=== PATIENT | female | born 1950 | race Caucasian/White ===

== ENCOUNTER 2020-01-12 18:35 | Inpatient (IN) | payer MEDICARE, MEDICAID ==
[~2020-01-12] VITALS: Ht 153 cm; Wt 89.9 kg
[~2020-01-12 18:35] MED LIST: ALBU8.5H2 IH; AMLO5TAB2 PO; AMX500CRX; CHLO25TA2 PO; CPR500T PO; HCT25T PO; HYDR-3730 PO; METO-272 PO; PRD5T; TIOT18CA IH
[2020-01-12] MEDS ORDERED: RT-ALBUTEROL/IPRATROPIUM 3 ML (DUONEB) VIAL INH ONE (19:00)
[2020-01-12 19:01] LABS: BASOPHILS % (AUTO) 0 % (0-10); EOSINOPHILS # (AUTO) 0.1 10^3/uL (0.0-0.3); EOSINOPHILS % (AUTO) 1 % (0-10); HEMATOCRIT 43 % (35-52); HEMOGLOBIN 12.7 G/DL (11.5-16.0); LYMPHOCYTES # (AUTO) 1.8 X 10^3 (1.0-4.0); LYMPHOCYTES % (AUTO) 23 % (12-44); MEAN CORPUSCULAR HEMOGLOBIN 28 PG (25-34); MEAN CORPUSCULAR HGB CONC 30 G/DL (32-36); MEAN CORPUSCULAR VOLUME 95 FL (80-99); MEAN PLATELET VOLUME 10.6 FL (7.4-10.4); MONOCYTES # (AUTO) 0.7 X 10^3 (0.0-1.0); MONOCYTES % (AUTO) 9 % (0-12); NEUTROPHILS # (AUTO) 5.1 X 10^3 (1.8-7.8); NEUTROPHILS % (AUTO) 67 % (42-75); PLATELET COUNT 235 10^3/uL (130-400); RED CELL DISTRIBUTION WIDTH 16.7 % (10.0-14.5); WHITE BLOOD COUNT 7.7 10^3/uL (4.3-11.0)
--- NOTE | 2020-01-12 19:04 | ED General ---
General Chief Complaint: Respiratory Problems Stated Complaint: SOB Source of Information: Patient, EMS Exam Limitations: No Limitations History of Present Illness Date Seen by Provider: January 12, 2020 Time Seen by Provider: 18:37 Initial Comments Here with report of shortness of breath that has been worsening over the last week or 2. [facility] [place] and no significant changes out of that visit. She did take her Lasix this morning but has not had any significant urinary output today. Notes that she's had increased swelling of her legs as a part of this. The clinic noted that she had O2 sat of 77%. EMS brought her here and found the same. They did initiate increased O2 via nasal cannula as well as DuoNeb treatment. Patient states that did help. Has history of albuterol use but not diagnosed with COPD. She does have CHF history. Does have cardiac history in which she had pericardial tamponade several years ago and pericardial window. Denies fever or chills. Denies nausea, vomiting or diarrhea. Does report increased shortness of breath and orthopnea. Denies chest pain otherwise. Timing/Duration: 1 Week, Getting Worse Severity: Moderate Associated Systoms: No Chest Pain, No Cough, No Fever/Chills, No Nausea/Vomiting; Shortness of Air, Weakness Allergies and Home Medications Allergies Coded Allergies: No Known Drug Allergies (Verified , 08/02/08) Home Medications Chlorthalidone 25 Mg Tablet, 25 MG PO DAILY, (Reported) Hydrocodone/Acetaminophen 1 Each Tablet, 1-2 EACH PO Q6H Prescribed by: DELMY COLE on 06/17/14 0951 Metoprolol Succinate 50 Mg Tab.sr.24h, 1 EACH PO DAILY, (Reported) Patient Home Medication List Home Medication List Reviewed: Yes Review of Systems Review of Systems Constitutional: see HPI EENTM: no symptoms reported Respiratory: see HPI, dyspnea on exertion, orthopnea, short of breath Cardiovascular: No chest pain; edema; No palpitations Gastrointestinal: No abdominal pain, No nausea, No vomiting Genitourinary: no symptoms reported Musculoskeletal: no symptoms reported All Other Systems Reviewed Negative Unless Noted: Yes Past Ejmbkop-Sqchin-Eiwowo Hx Past Med/Social Hx: Reviewed Nursing Past Med/Soc Hx Patient Social History Alcohol Use: Denies Use Recreational Drug Use: No Smoking Status: Former Smoker Immunizations Up To Date Date of Pneumonia Vaccine: Jun 17, 2013 Date of Influenza Vaccine: Apr 24, 2012 Past Medical History Surgeries: Yes Cardiac (pericardial window) Respiratory: Yes Pneumonia Cardiac: Yes Chronic Edema/Swelling, Hypertension Neurological: No Reproductive Disorders: No Female Reproductive Disorders: Denies Gastrointestinal: No Musculoskeletal: No Endocrine: No Adverse Reaction/Blood Tranf: No Family Medical History Reviewed Nursing Family Hx No Pertinent Family Hx Physical Exam-Suspected Sepsis Physical Exam Vital Signs Vital Signs - First Documented 01/12/20 01/12/20 18:40 18:45 Temp 37.1 Pulse 114 Resp 22 B/P (MAP) 145/87 (106) Pulse Ox 88 O2 Delivery Nasal Cannula O2 Flow Rate 6.00 Capillary Refill : Height, Weight, BMI Height: 5'0.00" Weight: 185lbs. oz. 83.128226oo; BMI Method: General Appearance: No Apparent Distress, WD/WN HEENT: PERRL/EOMI, Pharynx Normal Neck: Non Tender, Supple Respiratory: Decreased Breath Sounds, Respiratory Distress (moderate), Wheezing Cardiovascular: No Murmur, Tachycardia Gastrointestinal: Non Tender, Soft Back: Normal Inspection, No CVA Tenderness, No Vertebral Tenderness Extremity: Normal Range of Motion, Non Tender, No Calf Tenderness, Pedal Edema (2+ upto knees bilateral) Neurologic/Psychiatric: Alert, Oriented x3 Skin: normal color, warm/dry Focused Exam Lactate Level 01/12/20 18:52: Lactic Acid Level 1.40 Lactic Acid Level Laboratory Tests Test 01/12/20 18:52 Lactic Acid Level 1.40 MMOL/L (0.50-2.00) Progress/Results/Core Measures Suspected Sepsis SIRS Temperature: Pulse: Respiratory Rate: Laboratory Tests 01/12/20 18:52: White Blood Count 7.7 Blood Pressure / Mean: 01/12/20 18:52: Lactic Acid Level 1.40 Laboratory Tests 01/12/20 18:52: Creatinine 1.15, INR Comment 1.1, Platelet Count 235, Total Bilirubin 0.5 Results/Orders Lab Results Laboratory Tests Test 01/12/20 18:52 Range/Units White Blood Count 7.7 4.3-11.0 10^3/uL Red Blood Count 4.50 4.35-5.85 10^6/uL Hemoglobin 12.7 11.5-16.0 G/DL Hematocrit 43 35-52 % Mean Corpuscular Volume 95 80-99 FL Mean Corpuscular Hemoglobin 28 25-34 PG Mean Corpuscular Hemoglobin Concent 30 L 32-36 G/DL Red Cell Distribution Width 16.7 H 10.0-14.5 % Platelet Count 235 130-400 10^3/uL Mean Platelet Volume 10.6 H 7.4-10.4 FL Neutrophils (%) (Auto) 67 42-75 % Lymphocytes (%) (Auto) 23 12-44 % Monocytes (%) (Auto) 9 0-12 % Eosinophils (%) (Auto) 1 0-10 % Basophils (%) (Auto) 0 0-10 % Neutrophils # (Auto) 5.1 1.8-7.8 X 10^3 Lymphocytes # (Auto) 1.8 1.0-4.0 X 10^3 Monocytes # (Auto) 0.7 0.0-1.0 X 10^3 Eosinophils # (Auto) 0.1 0.0-0.3 10^3/uL Basophils # (Auto) 0.0 0.0-0.1 10^3/uL Prothrombin Time 14.1 12.2-14.7 SEC INR Comment 1.1 0.8-1.4 Activated Partial Thromboplast Time 26 24-35 SEC Sodium Level 142 135-145 MMOL/L Potassium Level 3.7 3.6-5.0 MMOL/L Chloride Level 93 L 98-107 MMOL/L Carbon Dioxide Level 39 H 21-32 MMOL/L Anion Gap 10 5-14 MMOL/L Blood Urea Nitrogen 24 H 7-18 MG/DL Creatinine 1.15 0.60-1.30 MG/DL Estimat Glomerular Filtration Rate 47 BUN/Creatinine Ratio 21 Glucose Level 191 H 70-105 MG/DL Lactic Acid Level 1.40 0.50-2.00 MMOL/L Calcium Level 9.2 8.5-10.1 MG/DL Corrected Calcium 9.2 8.5-10.1 MG/DL Magnesium Level 2.2 1.6-2.4 MG/DL Total Bilirubin 0.5 0.1-1.0 MG/DL Aspartate Amino Transf (AST/SGOT) 23 5-34 U/L Alanine Aminotransferase (ALT/SGPT) 25 0-55 U/L Alkaline Phosphatase 125 40-136 U/L Troponin I 0.142 H <0.028 NG/ML C-Reactive Protein High Sensitivity 2.65 H 0.00-0.50 MG/DL B-Type Natriuretic Peptide 554.7 H <100.0 PG/ML Total Protein 7.3 6.4-8.2 GM/DL Albumin 4.0 3.2-4.5 GM/DL My Orders Orders - SKINNY ZAMUDIO MD Cbc With Automated Diff (01/12/20 18:47) Comprehensive Metabolic Panel (01/12/20 18:47) Blood Culture (01/12/20 18:47) Sputum Culture (01/12/20 18:47) Urinalysis (01/12/20 18:47) Urine Culture (01/12/20 18:47) Protime With Inr (01/12/20 18:47) Partial Thromboplastin Time (01/12/20 18:47) Chest 1 View, Ap/Pa Only (01/12/20 18:47) Ed Iv/Invasive Line Start (01/12/20 18:47) Ekg Tracing (01/12/20 18:47) Troponin I (01/12/20 18:47) Vital Signs Adult Sepsis Patie Q15M (01/12/20 18:47) O2 (01/12/20 18:47) Remove Rings In Anticipation O (01/12/20 18:47) Lactic Acid Analyzer (01/12/20 18:47) BNP (01/12/20 18:47) Hs C Reactive Protein (01/12/20 18:47) Magnesium (01/12/20 18:47) Albuterol/Ipra Inhalation Soln (Duoneb I (01/12/20 19:00) Rt Request For Service (01/12/20 18:50) Svn Small Volume Nebulizer (01/12/20 18:50) Furosemide Injection (Lasix Injection) (01/12/20 19:48) Vital Signs/I&O 01/12/20 01/12/20 18:40 18:45 Temp 37.1 Pulse 114 Resp 22 B/P (MAP) 145/87 (106) Pulse Ox 88 88 O2 Delivery Nasal Cannula Nasal Cannula O2 Flow Rate 6.00 6.00 Capillary Refill : Progress Note : Progress Note Seen and evaluated. IV by EMS. O2 sat 77% on 4 L via nasal cannula. This was increased and ultimately placed on oxygen mask. This brought her O2 saturation up to mid 80s. BiPAP was initiated at 07/24 with FiO2 of 40% for pulse oximetry of 93%. Duo neb ordered. Sepsis protocol initiated as well as evaluation for heart failure. Monitor patient. 2009: Overall doing better. BiPAP continues although titrated up to 55% FiO2 to keep O2 sats greater than 92%. I have talked with patient's son, Joe Celestin at [phone] and felt him in on our current findings per patient's request. He agrees with plan. 2016: I did discuss the case with Dr. Servin and she accepts patient for admission. I have discussed the case with Dr. Luo and he accepts patient in consult. Orders written. Patient agrees to plan. ECG Initial ECG Impression Date: January 12, 2020 Initial ECG Impression Time: 19:01 Initial ECG Rate: 119 Comment Sinus tachycardia with left atrial enlargement. Normal axis. No evidence of ST elevation IA. This is similar to previous of 08/02/08. Interpreted by me. Diagnostic Imaging Diagonstic Imaging: Xray Plain Films/CT/US/NM/MRI: chest Comments [facility]. [place], [place] NAME: ISIDRO GALLEGO [facility] REC#: [id number] PT STATUS: REG ER : 1950 PHYSICIAN: SKINNY ZAMUDIO MD ADMIT DATE: 01/12/20/ER Signed Date of Exam:01/12/20 CHEST 1 VIEW, AP/PA ONLY INDICATION: Swelling. FINDINGS: There is cardiomegaly and vascular congestion having developed from the comparison of 09/24/2012. There may be some perihilar edema. No definite pleural fluid. IMPRESSION: Increased heart size, vascular caliber, and likely at least mild perihilar edema compatible with failure pattern. Dictated by: Dictated on workstation # [id number] Dict: 01/12/201920 Trans: 01/12/201944 [id number] Interpreted by: LASHONDA OJEDA Electronically signed by: LASHONDA OJEDA 01/12/201944 Reviewed: Reviewed by Me Departure Communication (Admissions) Time/Spoke to Admitting Phy: 20:16 Time/Spoke to Consulting Phy: 20:10 Impression Primary Impression: Acute heart failure Qualified Codes: I50.9 - Heart failure, unspecified Additional Impression: Elevated troponin Disposition: ADMITTED INPATIENT Condition: Stable Admissions Decision to Admit Reason: Admit from ER (General) Decision to Admit/Date: January 12, 2020 Time/Decision to Admit Time: 20:10 Departure-Patient Inst. Referrals: NO,LOCAL PHYSICIAN (Family) Primary Care Physician SKINNY ZAMUDIO MD January 12, 2020 19:04
[2020-01-12 19:10] LABS: POTASSIUM 3.7 MMOL/L (3.6-5.0)
[2020-01-12 19:11] LABS: CALCIUM 9.2 MG/DL (8.5-10.1)
[2020-01-12 19:12] LABS: INR 1.1 (0.8-1.4); PROTHROMBIN TIME PATIENT 14.1 SEC (12.2-14.7)
[2020-01-12 19:13] LABS: TOTAL PROTEIN 7.3 GM/DL (6.4-8.2)
[2020-01-12 19:14] LABS: BILIRUBIN,TOTAL 0.5 MG/DL (0.1-1.0)
[2020-01-12 19:16] LABS: CREATININE SERUM 1.15 MG/DL (0.60-1.30)
[2020-01-12 19:20] LABS: MAGNESIUM 2.2 MG/DL (1.6-2.4)
--- NOTE | 2020-01-12 19:24 | Diagnostic Imaging Report ---
INDICATION: Swelling. FINDINGS: There is cardiomegaly and vascular congestion having developed from the comparison of 09/24/2012. There may be some perihilar edema. No definite pleural fluid. IMPRESSION: Increased heart size, vascular caliber, and likely at least mild perihilar edema compatible with failure pattern. Dictated by: Dictated on workstation # [id number]
[2020-01-12] MEDS ORDERED: FUROSEMIDE 40 MG/4 ML INJ (LASIX) IV STA (19:48)
--- NOTE | 2020-01-12 20:35 | NUR ---
Pt assisted to bedside commode at this time, standby assist. Privacy provided, call light in reach.
[2020-01-12 20:48] LABS: BILIRUBIN,URINE NEGATIVE (NEGATIVE); CLARITY,URINE CLEAR; COLOR,URINE YELLOW; GLUCOSE, URINE (UA) NEGATIVE (NEGATIVE); KETONES,URINE NEGATIVE (NEGATIVE); LEUKOCYTE ESTERASE ,URINE NEGATIVE (NEGATIVE); NITRITE,URINE NEGATIVE (NEGATIVE); PROTEIN,URINE NEGATIVE (NEGATIVE)
[2020-01-12 20:55] LABS: BACTERIA,URINE FEW /HPF; HYALINE CASTS, URINE 0-2 /LPF; WBC,URINE 0-2 /HPF
--- NOTE | 2020-01-12 21:22 | NUR ---
Report called to BECCA Christy at this time.
--- NOTE | 2020-01-12 22:12 | NUR ---
ISIDRO GALLEGO admitted to room CU7-1, with an admitting diagnosis of ACUTE HEART FAILURE, on 01/12/20 from ED via STRETCHER, accompanied by HOSPITAL STAFF. ISIDRO GALLEGO introduced to surroundings, call light, bed controls, phone, TV, temperature control, lights, meal times, smoking policy, visitor policy, side rail policy, bathrooms and showers. Patient Rights given to patient in the handbook.ISIDRO GALLEGO verbalizes understanding that [facility] is not responsible for the loss or damage to any personal effects or valuables that are kept in the patients posession during their hospitalization. ISIDRO GALLEGO verbalizes understanding of Interdisciplinary Patient Education. Patient and/or family were informed about the Rapid Response Team and its purpose.
[2020-01-12 22:19] VITALS: BP 145/78
[2020-01-12 22:30] VITALS: BP 126/56
[2020-01-12] MEDS ORDERED: LORazepam INJ 2 MG/ML (ATIVAN) VIAL IV PRN (22:30)
--- OUTSIDE RECORDS SUMMARY | 2020-01-12 22:30 | XMS REPORT | Continuity of Care Document ---
Author Organization Unknown Address Unknown Phone Unavailable Allergies There is no data. Medications There is no data. Problems Date Dx Coded Attending Type Code Diagnosis Diagnosed By 04/20/2009 278.00 OBE SITY UNSPECIFIED 04/20/2009 401.9 ESSE NTIAL HYPERTENSION 04/20/2009 786.05 PREM RTNESS OF BREATH 04/20/2009 JOYA JUAN MD 278.00 OBESITY UNSPECIFIED 04/20/2009 JOYA JUAN MD 401.9 ESSENTIAL HYPERTENSION 04/20/2009 JOYA JUAN MD 786.05 SHORTNESS OF BREATH 04/20/2009 278.00 OBE SITY UNSPECIFIED 04/20/2009 401.9 ESSE NTIAL HYPERTENSION 04/20/2009 786.05 PREM RTNESS OF BREATH 04/20/2009 CHÁVEZ DO, BALTA K 278.00 OBESITY UNSPECIFIED 04/20/2009 CHÁVEZ DO, BALTA K 401.9 ESSENTIAL HYPERTENSION 04/20/2009 CHÁVEZ DO, BALTA K 786.05 SHORTNESS OF BREATH 04/20/2009 CHÁVEZ DO, BALTA K 278.00 OBESITY UNSPECIFIED 04/20/2009 CHÁVEZ DO, BALTA K 401.9 ESSENTIAL HYPERTENSION 04/20/2009 CHÁVEZ DO, BALTA K 786.05 SHORTNESS OF BREATH 04/20/2009 CHÁVEZ DO, BALTA K 278.00 OBESITY UNSPECIFIED 04/20/2009 CHÁVEZ DO, BALTA K 401.9 ESSENTIAL HYPERTENSION 04/20/2009 CHÁVEZ DO, BALTA K 786.05 SHORTNESS OF BREATH 05/19/2009 272.4 OTHE R AND UNSPECIFIED HYPERLIPIDEMIA 05/19/2009 JOYA JUAN MD 272.4 OTHER AND UNSPECIFIED HYPERLIPIDEMIA 05/19/2009 272.4 OTHE R AND UNSPECIFIED HYPERLIPIDEMIA 05/19/2009 CHÁVEZ DO, BALTA K 272.4 OTHER AND UNSPECIFIED HYPERLIPIDEMIA 05/19/2009 CHÁVEZ DO, BALTA K 272.4 OTHER AND UNSPECIFIED HYPERLIPIDEMIA 05/19/2009 CHÁVEZ DO, BALTA K 272.4 OTHER AND UNSPECIFIED HYPERLIPIDEMIA 07/04/2010 173.9 SKIN CANCER BASAL CELL CARCINOMA 07/04/2010 JOYA JUAN MD 173.9 SKIN CANCER BASAL CELL CARCINOMA 07/04/2010 173.9 SKIN CANCER BASAL CELL CARCINOMA 07/04/2010 BALTA CHÁVEZ DO 173.9 SKIN CANCER BASAL CELL CARCINOMA 07/04/2010 BALTA CHÁVEZ DO 173.9 SKIN CANCER BASAL CELL CARCINOMA 07/04/2010 BALTA CHÁVEZ DO K 173.9 SKIN CANCER BASAL CELL CARCINOMA 06/22/2011 466.0 Bron chitis, Acute 06/22/2011 JOYA JUAN MD 466.0 Bronchitis, Acute 06/22/2011 466.0 Bron chitis, Acute 06/22/2011 BALTA CHÁVEZ DO K 466.0 Bronchitis, Acute 06/22/2011 BALTA CHÁVEZ DO K 466.0 Bronchitis, Acute 06/22/2011 BALTA CHÁVEZ DO K 466.0 Bronchitis, Acute 11/02/2011 V70.0 ROUT INE GENERAL MEDICAL EXAMINATION AT A HEALTH CARE FACILITY 11/02/2011 JOYA JUAN MD V70.0 ROUTINE GENERAL MEDICAL EXAMINATION AT A HEALTH CARE ACILITY 11/02/2011 V70.0 ROUT INE GENERAL MEDICAL EXAMINATION AT A HEALTH CARE FACILITY 11/02/2011 BALTA CHÁVEZ DO V70.0 ROUTINE GENERAL MEDICAL EXAMINATION AT A HEALTH CARE FACILITY 11/02/2011 BALTA CHÁVEZ DO V70.0 ROUTINE GENERAL MEDICAL EXAMINATION AT A HEALTH CARE FACILITY 11/02/2011 BALTA CHÁVEZ DO K V70.0 ROUTINE GENERAL MEDICAL EXAMINATION AT A HEALTH CARE FACILITY 10/02/2012 492.8 EMPH YSEMA 10/02/2012 JOYA JUAN MD 492.8 EMPHYSEMA 10/02/2012 492.8 EMPH YSEMA 10/02/2012 BALTA CHÁVEZ DO 492.8 EMPHYSEMA 10/02/2012 BALTA CHÁVEZ DO K 492.8 EMPHYSEMA 10/02/2012 MATTEO CHÁVEZ DOA K 492.8 EMPHYSEMA 10/29/2012 JOYA JUAN MD 729.82 muscle cramps 10/29/2012 729.82 mus brenden cramps 10/29/2012 BALTA CHÁVEZ DO 729.82 muscle cramps 10/29/2012 BALTA CHÁVEZ DO 729.82 muscle cramps 10/29/2012 BALTA CHÁVEZ DO 729.82 muscle cramps 12/04/2012 461.9 SINU SITIS ACUTE 12/04/2012 709.9 skin lesion [Sx] 12/04/2012 CHÁVEZ DOMATTEOA K 461.9 SINUSITIS ACUTE 12/04/2012 CHÁVEZ DOMATTEOA K 709.9 skin lesion [Sx] 12/04/2012 CHÁVEZ DOMATTEOA K 461.9 SINUSITIS ACUTE 12/04/2012 CHÁVEZ DOMATTEOA K 709.9 skin lesion [Sx] 12/04/2012 CHÁVEZ DOMATTEOA K 461.9 SINUSITIS ACUTE 12/04/2012 CHÁVEZ DOMATTEOA K 709.9 skin lesion [Sx] 03/19/2013 CHÁVEZ DO BALTA K 372.30 CONJUNCTIVITIS - BOTH EYES 03/19/2013 CHÁVEZ DO BALTA K 372.30 CONJUNCTIVITIS - BOTH EYES 03/19/2013 CHÁVEZ DO BALTA K 372.30 CONJUNCTIVITIS - BOTH EYES 08/13/2013 SAIRA HUNTERMATTEOA K 486 PNEUMONIA ORGANISM UNSPECIFIED 08/13/2013 CHÁVEZ DO BALTA K 486 PNEUMONIA ORGANISM UNSPECIFIED 08/13/2013 CHÁVEZ DO BALTA K 486 PNEUMONIA ORGANISM UNSPECIFIED Procedures Code [place] [address] ROUT INE VENIPUNCTURE 10/29/2012 25231 BMP 10/30/2012 [id number] GF R CALC (RESULT ONLY) 10/30/2012 25428 OXIMETRY 08/13/2013 01785 OXIMETRY 08/17/2013 82876 ROUT INE VENIPUNCTURE 08/26/2013 21833 CBC 08/26/2013 [id number] GF R CALC (RESULT ONLY) 08/26/2013 43223 CMP 08/26/2013 34840 BNP 08/27/2013 50092 OXIMETRY 08/28/2013 Results There is no data. Encounters ACCT No. Visit Date/Time Discharge Status Pt. Type Provider Facility Loc./Unit Complaint [id number] 08/26/2013 11:41:00 08/26/2013 23:59: 59 CLS Outpatient BALTA CHÁVEZ DO [id number] 08/17/2013 11:55:00 08/17/2013 23:59: 59 CLS Outpatient BALTA CHÁVEZ DO [id number] 08/13/2013 09:48:00 08/13/2013 23:59: 59 CLS Outpatient BALTA CHÁVEZ DO [id number] 10/29/2012 16:03:00 10/29/2012 23:59: 59 CLS Outpatient JOYA JUAN MD [id number] 10/02/2012 14:36:00 10/02/2012 23:59: 59 CLS Outpatient [id number] 12/04/2012 09:40:00 Document Registration
--- OUTSIDE RECORDS SUMMARY | 2020-01-12 22:30 | XMS REPORT ---
Author Author [employer] electronic gl[employer] [facility] Address [address] [address] Care Team Providers Care Lav Crewman Name Role Phone Migration, Doctor Unavailable Unavailable Migration, Doctor Unavailable Unavailable zzHELLWIG, BETH Unavailable zzHELLWIG, BETH Unavailable zzHELLWIG, BETH Unavailable zzHELLWIG, BETH Unavailable Migration, Doctor Unavailable Unavailable Allergies The data below is from unstructured sources No Information No Information No Information No Information No Information Medications The data below is from unstructured sources Unknown Medications Unknown Medications No Known Medications No Known Medications Unknown Medications No Known Medications Problems No Information Procedures No Information Immunizations The data below is from unstructured sources No Known Immunizations No Known Immunizations No Known Immunizations No Known Immunizations No Known Immunizations Results The data below is from unstructured sources No Results No Results No Results No Results No Results Vital Signs No Information Interventions No Information Plan of Treatment No Information Goals No Information Social History No Information Functional Status No Information Mental Status No Information Encounters Encounter Normalized Encounter Encounter Diagnosis Care Provi matthew Organization Date Type 11-23-2019 Telephone encounter no information [facility] Owens (no [facility] [address] phone) (no phone) Medical Equipment No Information Payers No Information Additional Source Comments This clinical document has been generated using [employer] software that has been certified by the Office of the National Coordinator for Health Information Technology (ONC 15.99.04.3023.Diam.31.00.0.148554) and the National Committee for Printing Press Machine Operator (NCQA, as an eMeasure certified technology). FOR RECORDS PERTAINING TO PATIENTS WHO ARE OR HAVE BEEN ENROLLED IN A CHEMICAL D EPENDENCY/SUBSTANCE ABUSE PROGRAM, SOME INFORMATION MAY BE OMITTED. This clinica l summary was aggregated from multiple sources. Caution should be exercised in using it in the provision of clinical care. This summary normalizes information from multiple sources, and as a consequence, information in this document may ma terially change the coding, format and clinical context of patient data. In imtiaz tion, data may be omitted in some cases. CLINICAL DECISIONS SHOULD BE BASED ON T HE PRIMARY CLINICAL RECORDS. [employer]. provides no warranty or guara ntee of the accuracy or completeness of information in this document.The followi ng information is based on time limited clinical information UNRECOGNIZED CONTENT PROVIDED BELOW FOR UNRECOGNIZED SECTION REASON FOR VISIT [id number]
[2020-01-12 22:45] VITALS: BP 116/61
[2020-01-12 23:00] VITALS: BP 118/63
[2020-01-13] VITALS (22 sets, daily range): BP systolic 94–145; BP diastolic 54–96
[2020-01-13 02:42] LABS: ABG BASE EXCESS 16.8 MMOL/L (-2.5-2.5); ABG OXYGEN SATURATION 96 % (94-100); ABG PH 7.35 (7.37-7.43); ABG PO2 93 MMHG (79-93)
[2020-01-13 02:44] LABS: ABG PCO2 79 MMHG (35-45)
[2020-01-13 02:45] LABS: ALLENS TEST POSITIVE; INSPIRED O2 65; PATIENT TEMP 35.7; VENTILATOR NO
[2020-01-13 02:50] LABS: BASOPHILS % (AUTO) 0 % (0-10); EOSINOPHILS # (AUTO) 0.1 10^3/uL (0.0-0.3); EOSINOPHILS % (AUTO) 1 % (0-10); HEMATOCRIT 42 % (35-52); HEMOGLOBIN 12.3 G/DL (11.5-16.0); LYMPHOCYTES # (AUTO) 1.8 X 10^3 (1.0-4.0); LYMPHOCYTES % (AUTO) 26 % (12-44); MEAN CORPUSCULAR HEMOGLOBIN 28 PG (25-34); MEAN CORPUSCULAR HGB CONC 29 G/DL (32-36); MEAN CORPUSCULAR VOLUME 95 FL (80-99); MEAN PLATELET VOLUME 10.4 FL (7.4-10.4); MONOCYTES # (AUTO) 0.7 X 10^3 (0.0-1.0); MONOCYTES % (AUTO) 10 % (0-12); NEUTROPHILS # (AUTO) 4.3 X 10^3 (1.8-7.8); NEUTROPHILS % (AUTO) 63 % (42-75); PLATELET COUNT 217 10^3/uL (130-400); RED CELL DISTRIBUTION WIDTH 16.9 % (10.0-14.5); WHITE BLOOD COUNT 6.8 10^3/uL (4.3-11.0)
[2020-01-13 03:00] LABS: ALBUMIN 3.9 GM/DL (3.2-4.5); POTASSIUM 3.6 MMOL/L (3.6-5.0)
[2020-01-13 03:01] LABS: CALCIUM 8.9 MG/DL (8.5-10.1)
[2020-01-13 03:02] LABS: TOTAL PROTEIN 6.6 GM/DL (6.4-8.2)
[2020-01-13 03:04] LABS: BILIRUBIN,TOTAL 0.5 MG/DL (0.1-1.0)
[2020-01-13 03:06] LABS: CREATININE SERUM 0.94 MG/DL (0.60-1.30); PHOSPHORUS 4.3 MG/DL (2.3-4.7)
[2020-01-13 03:08] LABS: MAGNESIUM 1.9 MG/DL (1.6-2.4)
[2020-01-13] MEDS: inSUlin ASPART (NovoLOG) 1 UNIT/0.01 ML (CHARGE PER UNIT) SC SCH ×4 (03:16→20:27)
[2020-01-13] MEDS: MAGNESIUM 1 GM/100 ML IVPB 100 ML IV SCH (03:17)
[2020-01-13] MEDS: POTASSIUM CL 10MEQ/50ML IVPB 50 ML IV SCH (03:17)
[2020-01-13] MEDS: KCL 20 MEQ TAB (K-DUR) PO SCH (03:17)
--- NOTE | 2020-01-13 04:15 | NUR ---
E-ICU CALLED TO REPORT CRITICAL LAB VALUES FROM BLOOD GAS. NO NEW ORDERS AT THIS TIME.
--- NOTE | 2020-01-13 05:51 | Diagnostic Imaging Report ---
Indication: Congestive heart failure Portable chest 4:02 AM There is cardiomegaly. Pulmonary vascularity is normal. Lungs are clear. There are no effusions or pneumothoraces. IMPRESSION: Cardiomegaly without evidence of pulmonary venous hypertension Dictated by: Dictated on workstation # [id number]
[2020-01-13] MEDS ORDERED: KCL 20 MEQ TAB (K-DUR) PO ONE (06:00)
[2020-01-13] MEDS: FUROSEMIDE 40 MG/4 ML INJ (LASIX) IV SCH ×2 (06:57→18:43)
[2020-01-13] MEDS ORDERED: FURO40TA4 PO (09:27)
[2020-01-13] MEDS ORDERED: LISI-556 PO (09:27)
[2020-01-13] MEDS ORDERED: MTP25TSR PO (09:27)
--- NOTE | 2020-01-13 09:33 | History & Physical ---
HPI History of Present Illness: 69 yo female came to the ER due to increasing shortness of breath. She states she has had problems with breathing for years, has been on oxygen since around 2012 when she had some cardiac issue that she was treated for at another hospital, but she is not sure what. She just kept getting worse recently so she came in. She denies fever, cough, chest pain. Source: patient Exam Limitations: clinical condition (on bipap) Date seen by provider: January 13, 2020 Time Seen by Provider: 08:15 Attending Physician Parul Servin MD PCP Sung Newby APRN Consult Date of Admission January 12, 2020 at 19:56 Home Medications Home Medications Reviewed patient Home Medication Reconciliation performed by pharmacy medication reconciliations set up mold technician and/or nursing. Patients Allergies have been reviewed. Allergies Coded Allergies: No Known Drug Allergies (Verified , 08/02/08) HOX-Fmkeva-Wtncqa Hx Patient Social History Alcohol Use: Denies Use Recreational Drug Use: No Smoking Status: Former Smoker Recent Foreign Travel: No Contact w/other who traveled: No Recent Hopitalizations: No Recent Infectious Disease Expo: No Immunizations Up To Date Date of Pneumonia Vaccine: Jul 18, 2019 Date of Influenza Vaccine: Apr 24, 2012 Past Medical History PMHx: Unknown but suspected CHF SurgHx: Denies Family Medical History Family History: Patient reports no known family medical history. Review of Systems ([facility]) Constitutional: No fever EENTM: No nose congestion, No throat pain Respiratory: No cough, No short of breath Cardiovascular: edema (greater on left leg usually) Gastrointestinal: No abdominal pain, No constipation, No diarrhea, No nausea, No vomiting Genitourinary: No dysuria Musculoskeletal: joint pain ("aging") Skin: No rash Reviewed Test Results Reviewed Test Results Lab Laboratory Tests Test 01/12/20 18:52 01/12/20 20:42 01/13/20 02:30 01/13/20 02:36 Range/Units White Blood Count 7.7 6.8 4.3-11.0 10^3/uL Red Blood Count 4.50 4.45 4.35-5.85 10^6/uL Hemoglobin 12.7 12.3 11.5-16.0 G/DL Hematocrit 43 42 35-52 % Mean Corpuscular Volume 95 95 80-99 FL Mean Corpuscular Hemoglobin 28 28 25-34 PG Mean Corpuscular Hemoglobin Concent 30 L 29 L 32-36 G/DL Red Cell Distribution Width 16.7 H 16.9 H 10.0-14.5 % Platelet Count 235 217 130-400 10^3/uL Mean Platelet Volume 10.6 H 10.4 7.4-10.4 FL Neutrophils (%) (Auto) 67 63 42-75 % Lymphocytes (%) (Auto) 23 26 12-44 % Monocytes (%) (Auto) 9 10 0-12 % Eosinophils (%) (Auto) 1 1 0-10 % Basophils (%) (Auto) 0 0 0-10 % Neutrophils # (Auto) 5.1 4.3 1.8-7.8 X 10^3 Lymphocytes # (Auto) 1.8 1.8 1.0-4.0 X 10^3 Monocytes # (Auto) 0.7 0.7 0.0-1.0 X 10^3 Eosinophils # (Auto) 0.1 0.1 0.0-0.3 10^3/uL Basophils # (Auto) 0.0 0.0 0.0-0.1 10^3/uL Prothrombin Time 14.1 12.2-14.7 SEC INR Comment 1.1 0.8-1.4 Activated Partial Thromboplast Time 26 24-35 SEC Sodium Level 142 145 135-145 MMOL/L Potassium Level 3.7 3.6 3.6-5.0 MMOL/L Chloride Level 93 L 94 L 98-107 MMOL/L Carbon Dioxide Level 39 H 39 H 21-32 MMOL/L Anion Gap 10 12 5-14 MMOL/L Blood Urea Nitrogen 24 H 20 H 7-18 MG/DL Creatinine 1.15 0.94 0.60-1.30 MG/DL Estimat Glomerular Filtration Rate 47 59 BUN/Creatinine Ratio 21 21 Glucose Level 191 H 122 H 70-105 MG/DL Lactic Acid Level 1.40 0.50-2.00 MMOL/L Calcium Level 9.2 8.9 8.5-10.1 MG/DL Corrected Calcium 9.2 9.0 8.5-10.1 MG/DL Magnesium Level 2.2 1.9 1.6-2.4 MG/DL Total Bilirubin 0.5 0.5 0.1-1.0 MG/DL Aspartate Amino Transf (AST/SGOT) 23 21 5-34 U/L Alanine Aminotransferase (ALT/SGPT) 25 24 0-55 U/L Alkaline Phosphatase 125 108 40-136 U/L Troponin I 0.142 H 0.141 H <0.028 NG/ML C-Reactive Protein High Sensitivity 2.65 H 0.00-0.50 MG/DL B-Type Natriuretic Peptide 554.7 H <100.0 PG/ML Total Protein 7.3 6.6 6.4-8.2 GM/DL Albumin 4.0 3.9 3.2-4.5 GM/DL Urine Color YELLOW Urine Clarity CLEAR Urine pH 6.0 5-9 Urine Specific [place] 1.010 L 1.016-1.022 Urine Protein NEGATIVE NEGATIVE Urine Glucose (UA) NEGATIVE NEGATIVE Urine Ketones NEGATIVE NEGATIVE Urine Nitrite NEGATIVE NEGATIVE Urine Bilirubin NEGATIVE NEGATIVE Urine Urobilinogen 0.2 < = 1.0 MG/DL Urine Leukocyte Esterase NEGATIVE NEGATIVE Urine RBC (Auto) 2+ H NEGATIVE Urine RBC 2-5 H /HPF Urine WBC 0-2 /HPF Urine Squamous Epithelial Cells 2-5 /HPF Urine Crystals NONE /LPF Urine Bacteria FEW H /HPF Urine Casts PRESENT /LPF Urine Hyaline Casts 0-2 H /LPF Urine Mucus NEGATIVE /LPF Urine Culture Indicated CULTURE PENDING Blood Gas Puncture Site RIGHTR RADIAL Blood Gas Patient Temperature 35.7 Arterial Blood pH 7.35 L 7.37-7.43 Arterial Blood Partial Pressure CO2 79 *H 35-45 MMHG Arterial Blood Partial Pressure O2 93 79-93 MMHG Arterial Blood HCO3 43 *H 23-27 MMOL/L Arterial Blood Total CO2 46.0 H 21.0-31.0 MMOL/L Arterial Blood Oxygen Saturation 96 94-100 % Arterial Blood Base Excess 16.8 H -2.5-2.5 MMOL/L Darrius Test POSITIVE Blood Gas Ventilator Setting NO Blood Gas Inspired Oxygen 65 Phosphorus Level 4.3 2.3-4.7 MG/DL Radiology CXR 01/11: IMPRESSION: Increased heart size, vascular caliber, and likely at least mild perihilar edema compatible with failure pattern. Physical Exam-([facility]) Physical Exam Vital Signs VS - Last 72 Hours, by Label 01/12/20 01/12/20 01/12/20 01/12/20 18:40 18:45 18:51 21:55 Temp 37.1 37.1 Pulse 114 118 103 Resp 22 24 24 B/P (MAP) 145/87 (106) 119/65 (106) Pulse Ox 88 88 94 98 O2 Delivery Nasal Cannula Nasal Cannula FI02 O2 Flow Rate 6.00 6.00 55.00 6.00 01/12/20 01/12/20 01/12/20 01/12/20 22:12 22:12 22:17 22:19 Temp 36.0 Pulse 112 93 Resp 28 B/P (MAP) 145/78 (100) Pulse Ox 94 93 97 O2 Delivery NIV Bilevel NIV Bilevel O2 Flow Rate 55.00 55.00 FiO2 55 01/12/20 01/12/20 01/12/20 01/12/20 22:25 22:30 22:45 23:00 Pulse 105 106 100 98 Resp B/P (MAP) 126/56 (79) 116/61 (79) 118/63 (81) Pulse Ox 96 93 95 O2 Delivery NIV Bilevel NIV Bilevel NIV Bilevel O2 Flow Rate 55.00 55.00 55.00 01/12/20 01/13/20 01/13/20 01/13/20 23:04 00:00 00:00 00:00 Temp 35.8 Pulse 118 94 Resp 22 B/P (MAP) 116/54 (74) Pulse Ox 95 92 93 O2 Delivery NIV Bilevel NIV Bilevel O2 Flow Rate 55.00 FiO2 55 55 01/13/20 01/13/20 01/13/20 01/13/20 00:35 01:00 01:00 02:00 Pulse 95 92 92 97 Resp 17 B/P (MAP) 113/61 (78) 125/68 (87) Pulse Ox 90 91 90 O2 Delivery NIV Bilevel NIV Bilevel NIV Bilevel O2 Flow Rate 65.00 65.00 65.00 01/13/20 01/13/20 01/13/20 01/13/20 02:05 03:00 04:00 04:00 Temp 35.7 Pulse 98 98 Resp 18 20 B/P (MAP) 125/73 (90) Pulse Ox 91 98 92 O2 Delivery NIV Bilevel NIV Bilevel O2 Flow Rate 65.00 65.00 FiO2 65 01/13/20 01/13/20 01/13/20 01/13/20 04:00 05:00 06:00 06:53 Pulse 91 87 89 89 Resp 18 21 19 21 B/P (MAP) 140/74 (96) 103/55 (71) 94/57 (69) Pulse Ox 94 89 91 91 O2 Delivery NIV Bilevel NIV Bilevel NIV Bilevel O2 Flow Rate 65.00 65.00 65.00 65.00 01/13/20 06:54 Pulse 93 B/P (MAP) 109/67 (81) Pulse Ox 91 O2 Delivery NIV Bilevel O2 Flow Rate 65.00 Capillary Refill : Less Than 3 Seconds General Appearance: mild distress Respiratory: rhonchi; No wheezing Cardiovascular: regular rate, rhythm, no murmur Gastrointestinal: normal bowel sounds, non tender, other (mild distension) Extremities: pedal edema (trace) Neurologic/Psychiatric: alert, normal mood/affect Skin: normal color, warm/dry Assessment/Plan Assessment/Plan Admission Status: Inpatient Order (span 2 midnights) Reason for Inpatient Admission: Severe respiratory insufficiency requiring bipap and ICU stay (1) Elevated troponin Status: Acute Assessment & Plan: Minimal elevation, suspect strain related, Cardiology consulted, appreciate recommendations. (2) Acute heart failure Status: Acute Assessment & Plan: Suspected history of CHF, per clinic chart she did not get previously ordered echo and work-up. Cardiology consulted, IV lasix started and echo ordered. Requiring bipap currently. Qualifiers: Qualified Codes: I50.9 - Heart failure, unspecified (3) DVT prophylaxis Status: Acute Assessment & Plan: Enoxaparin Clinical Quality Measures DVT/VTE Risk/Contraindication: Risk Factor Score Per Nursin RFS Level Per Nursing on Admit: 4+=Very High PARUL SERVIN MD January 13, 2020 09:33
--- NOTE | 2020-01-13 10:19 | NUR ---
SPOKE WITH THE PT (SHE HAD HER BOTTLES WITH HER) AND WENT THRU THE EXT MED HISTORY TO COMPLETE THE MED REC ALL MEDS THE PT TAKES ARE LISTED ON THE EXT MED HISTORY AND PT TAKES LISTED ON THE BOTTLES PT DENIES TAKING ANY OTC MEDS
--- NOTE | 2020-01-13 11:15 | NUR ---
Pastoral care visit.
[2020-01-13] MEDS: ENOXAPARIN 40 MG/0.4 ML (LOVENOX) SYR SQ SCH (12:49)
--- NOTE | 2020-01-13 12:57 | NUR ---
This nurse notified that he has been consulted on patient.
[2020-01-13] MEDS ORDERED: FUROSEMIDE 40 MG/4 ML INJ (LASIX) IVP ONE (13:00)
--- NOTE | 2020-01-13 13:16 | Consultation-Cardiology ---
HPI-Cardiology Cardiology Consultation: Date of Consultation 01/13/20 Date of Admission Attending Physician Cindy Servin MD Admitting Physician No,Local Physician Consulting Physician Ceci LUO MD HPI: Time Seen by a Provider: 12:35 Chief Complaint: Shortness of breath 69-year-old lady who presented to the ER with worsening shortness of breath for the last 2 years. She is had chronic shortness of breath issues and has been on oxygen since 2012; however shortness of breath has been much worse in the last 2 weeks. Associated with orthopnea as well. Lower extremity swelling. She denies any chest pain, fever, cough. She smoked for 30 years but quit 38 years ago. Family history is negative. She denies any significant cardiac evaluation. She also denies significant lung issues in the past. However she has been on oxygen and when I asked her as to what was the reason for being on oxygen therapy she said because she could not breathe. Review of Systems-Cardiology Review of Systems Constitutional: As described under HPI; No As described under HPI, No no symptoms reported, No chills, No fever, No lightheadedness Eyes: No As described under HPI, No no symptoms reported, No blindness, No blurred vision, No contact lenses, No drainage, No decreased acuity, No foreign body sensation, No pain, No vision change Ears/Nose/Throat: No As described under HPI, No no symptoms reported, No chronic hearing loss, No ear discharge, No ear pain, No nasal drainage, No ulcerations Respiratory: No no symptoms reported; As described under HPI; No As described under HPI, No cough; orthopnea, shortness of breath; No SOB with excertion Cardiovascular: No no symptoms reported; As described under HPI; No As described under HPI, No chest pain, No edema, No irregular heart rate, No lightheadedness, No palpitations Gastrointestinal: No no symptoms reported, No As described under HPI, No abdomen distended, No abdominal pain, No blood streaked bowels, No constipation, No diarrhea, No nausea, No vomiting, No stool coloration changes Genitourinary: No As described under HPI, No burning, No dysuria, No discharge, No frequency, No flank pain, No hematuria, No urgency : Yes : No Skin: No rash, No skin related problems, No ulcerations Psychiatric/Neurological: No anxiety, No depression, No seizure, No focal weakness, No syncope Hematologic: No bleeding abnormalities All Other Systems Reviewed Negative Unless Noted: Yes PFQ-Wawvzl-Pfutjd Hx Patient Social History Alcohol Use: Denies Use Recreational Drug Use: No Smoking Status: Former Smoker Recent Foreign Travel: No Recent Infectious Disease Expo: No Immunizations Up To Date Date of Pneumonia Vaccine: Jul 18, 2019 Date of Influenza Vaccine: Apr 24, 2012 Past Medical History PMH As described under Assessment. Family Medical History Family History: Patient reports no known family medical history. Allergies and Home Medications Allergies Coded Allergies: No Known Drug Allergies (Verified , 08/02/08) Home Medications Furosemide 40 Mg Tablet, 40 MG PO DAILY, (Reported) Lisinopril 5 Mg Tablet, 5 MG PO DAILY, (Reported) Metoprolol Succinate 25 Mg Tab.er.24h, 25 MG PO DAILY, (Reported) Patient Home Medication List Home Medication List Reviewed: Yes Physical Exam-Cardiology Physical Exam Vital Signs/I&O 01/13/20 01/13/20 01/13/20 01/13/20 02:00 02:05 03:00 04:00 Temp 35.7 Pulse 97 98 98 Resp 17 18 20 B/P (MAP) 125/68 (87) 125/73 (90) Pulse Ox 90 91 98 O2 Delivery NIV Bilevel NIV Bilevel O2 Flow Rate 65.00 65.00 65.00 01/13/20 01/13/20 01/13/20 01/13/20 04:00 04:00 05:00 06:00 Pulse 91 87 89 Resp 18 21 19 B/P (MAP) 140/74 (96) 103/55 (71) 94/57 (69) Pulse Ox 92 94 89 91 O2 Delivery NIV Bilevel NIV Bilevel NIV Bilevel NIV Bilevel O2 Flow Rate 65.00 65.00 65.00 FiO2 65 01/13/20 01/13/20 01/13/20 01/13/20 06:53 06:54 07:00 07:07 Pulse 89 93 89 97 Resp 21 24 B/P (MAP) 109/67 (81) 118/60 (79) Pulse Ox 91 91 79 O2 Delivery NIV Bilevel NIV Bilevel O2 Flow Rate 65.00 65.00 65.00 01/13/20 01/13/20 01/13/20 01/13/20 08:00 08:00 09:00 10:00 Pulse 98 118 95 Resp 23 37 19 B/P (MAP) 134/96 (109) Pulse Ox 96 93 94 O2 Delivery NIV Bilevel NIV Bilevel NIV Bilevel NIV Bilevel O2 Flow Rate 65.00 65.00 65.00 FiO2 55 01/13/20 01/13/20 01/13/20 01/13/20 10:31 11:29 11:33 13:03 Pulse 101 Resp 27 Pulse Ox 97 O2 Delivery NIV Bilevel Vapotherm NIV Bilevel O2 Flow Rate 65.00 55.00 40.00 55.00 60.00 Capillary Refill : Less Than 3 Seconds Constitutional: appears stated age, apparent distress, well-developed, well- nourished HEENT: PERRL; No discharge; hearing is well preserved, oral hygience is good; No ulceration, No xanthelasmas are seen Neck: No carotid bruit; carotid pulses are 2 + bilaterally Respiratory: accessory muscle use, respiratory distress, chest is bilaterally symmetric, other (decreased breath sounds bilaterally.) Cardiovascular: regular rate-rhythm, S1 and S2; No systolic murmur Gastrointestinal: soft, audible bowel sounds; No spleenomegaly Rectal: deferred Extremities: normal range of motion, non-tender, normal inspection; No clubbing, No cyanosis; significant edema Neurologic/Psychiatric: no motor/sensory deficits, alert, normal mood/affect, oriented x 3, power is 5/5 both on sides Skin: normal color, warm/dry Data Review Labs Laboratory Tests 01/12/20 18:52: White Blood Count 7.7, Red Blood Count 4.50, Hemoglobin 12.7, Hematocrit 43, Mean Corpuscular Volume 95, Mean Corpuscular Hemoglobin 28, Mean Corpuscular Hemoglobin Concent 30L, Red Cell Distribution Width 16.7H, Platelet Count 235, Mean Platelet Volume 10.6H, Neutrophils (%) (Auto) 67, Lymphocytes (%) (Auto) 23, Monocytes (%) (Auto) 9, Eosinophils (%) (Auto) 1, Basophils (%) (Auto) 0, Neutrophils # (Auto) 5.1, Lymphocytes # (Auto) 1.8, Monocytes # (Auto) 0.7, Eosinophils # (Auto) 0.1, Basophils # (Auto) 0.0, Prothrombin Time 14.1, INR Comment 1.1, Activated Partial Thromboplast Time 26, Sodium Level 142, Potassium Level 3.7, Chloride Level 93L, Carbon Dioxide Level 39H, Anion Gap 10, Blood Urea Nitrogen 24H, Creatinine 1.15, Estimat Glomerular Filtration Rate 47, BUN/Creatinine Ratio 21, Glucose Level 191H, Lactic Acid Level 1.40, Calcium Level 9.2, Corrected Calcium 9.2, Magnesium Level 2.2, Total Bilirubin 0.5, Aspartate Amino Transf (AST/SGOT) 23, Alanine Aminotransferase (ALT/SGPT) 25, Alkaline Phosphatase 125, Troponin I 0.142H, C-Reactive Protein High Sensitivity 2.65H, B-Type Natriuretic Peptide 554.7H, Total Protein 7.3, Albumin 4.0 01/12/20 20:42: Urine Color YELLOW, Urine Clarity CLEAR, Urine pH 6.0, Urine Specific [place] 1.010L, Urine Protein NEGATIVE, Urine Glucose (UA) NEGATIVE, Urine Ketones NEGATIVE, Urine Nitrite NEGATIVE, Urine Bilirubin NEGATIVE, Urine Urobilinogen 0.2, Urine Leukocyte Esterase NEGATIVE, Urine RBC (Auto) 2+H, Urine RBC 2-5H, Urine WBC 0-2, Urine Squamous Epithelial Cells 2-5, Urine Crystals NONE, Urine Bacteria FEWH, Urine Casts PRESENT, Urine Hyaline Casts 0-2H, Urine Mucus NEGATIVE, Urine Culture Indicated CULTURE PENDING 01/13/20 02:30: Blood Gas Puncture Site RIGHTR RADIAL, Blood Gas Patient Temperature 35.7, Arterial Blood pH 7.35L, Arterial Blood Partial Pressure CO2 79*H, Arterial Blood Partial Pressure O2 93, Arterial Blood HCO3 43*H, Arterial Blood Total CO2 46.0H, Arterial Blood Oxygen Saturation 96, Arterial Blood Base Excess 16.8H, Darrius Test POSITIVE, Blood Gas Ventilator Setting NO, Blood Gas Inspired Oxygen 65 01/13/20 02:36: White Blood Count 6.8, Red Blood Count 4.45, Hemoglobin 12.3, Hematocrit 42, Mean Corpuscular Volume 95, Mean Corpuscular Hemoglobin 28, Mean Corpuscular Hemoglobin Concent 29L, Red Cell Distribution Width 16.9H, Platelet Count 217, Mean Platelet Volume 10.4, Neutrophils (%) (Auto) 63, Lymphocytes (%) (Auto) 26, Monocytes (%) (Auto) 10, Eosinophils (%) (Auto) 1, Basophils (%) (Auto) 0, Neutrophils # (Auto) 4.3, Lymphocytes # (Auto) 1.8, Monocytes # (Auto) 0.7, Eosinophils # (Auto) 0.1, Basophils # (Auto) 0.0, Sodium Level 145, Potassium Level 3.6, Chloride Level 94L, Carbon Dioxide Level 39H, Anion Gap 12, Blood Urea Nitrogen 20H, Creatinine 0.94, Estimat Glomerular Filtration Rate 59, BUN/Creatinine Ratio 21, Glucose Level 122H, Calcium Level 8.9, Corrected Calcium 9.0, Magnesium Level 1.9, Total Bilirubin 0.5, Aspartate Amino Transf (AST/SGOT) 21, Alanine Aminotransferase (ALT/SGPT) 24, Alkaline Phosphatase 108, Troponin I 0.141H, Total Protein 6.6, Albumin 3.9, Phosphorus Level 4.3 01/13/20 11:20: Glucometer 102 Microbiology 01/12/20 Urine Culture - Preliminary, Resulted Gram Negative Jeovany ECG Impression ECG Initial ECG Rhythm: Normal Sinus Initial ECG Impression: Nonspecific Changes Comment Possible left atrial enlargement. A/P-Cardiology Assessment/Admission Diagnosis Acute congestive heart failure, Acute hypercarbic respiratory failure, Hypertension, Positive troponin Plan Acute congestive heart failure, checks x-ray showed possible hilar congestion, BNP 500. Some improvement with IV Lasix. I will give Lasix IV 80 mg 1 now. We'll request an echocardiogram. However shortness of breath is out of proportion to the amount of congestive heart failure. Therefore I will request that the primary team consider pulmonology consultation. Acute hypercarbic respiratory failure, likely multifactorial. Some improvement with IV Lasix. Hypertension, stable blood pressure. Positive troponin, unclear etiology. Could be type II myocardial infarction due to acute respiratory failure/acute congestive heart failure. However non-STEMI due to plaque rupture cannot be ruled out. The patient will likely require coronary angiography or noninvasive testing when a little bit more stable. Thank you for your consultation. Please call me if you have any questions. Stanton Luo MD, FACP, FACC, FSCAI, FHRS, CCDS Interventional Cardiology Cardiac Electrophysiology Vascular Medicine and Endovascular Interventions Clinical Quality Measures DVT/VTE Risk/Contraindication: Risk Factor Score Per Nursin RFS Level Per Nursing on Admit: 4+=Very High Ceci LUO MD January 13, 2020 13:16
--- NOTE | 2020-01-13 14:28 | NUR ---
CM/SS: Visited with pt as to plan for discharge Plan: To be determined Summary: Pt is in bed texting on her cell phone. Pt reports she came from home and that she did not have any services in the home or home care prior to her admission to the hospital. She reports she will probably not need anything at the time of discharge. This worker will follow up.
[2020-01-13] MEDS ORDERED: methylPREDNISolone 125 MG (Solu-MEDROL) VIAL IM NR (14:30)
[2020-01-14] VITALS (27 sets, daily range): BP systolic 91–140; BP diastolic 54–89
[2020-01-14 03:47] LABS: BASOPHILS % (AUTO) 0 % (0-10); EOSINOPHILS # (AUTO) 0.2 10^3/uL (0.0-0.3); EOSINOPHILS % (AUTO) 3 % (0-10); HEMATOCRIT 27 % (35-52); HEMOGLOBIN 8.6 G/DL (11.5-16.0); LYMPHOCYTES # (AUTO) 1.1 X 10^3 (1.0-4.0); LYMPHOCYTES % (AUTO) 16 % (12-44); MEAN CORPUSCULAR HEMOGLOBIN 33 PG (25-34); MEAN CORPUSCULAR HGB CONC 32 G/DL (32-36); MEAN CORPUSCULAR VOLUME 102 FL (80-99); MEAN PLATELET VOLUME 9.6 FL (7.4-10.4); MONOCYTES # (AUTO) 0.7 X 10^3 (0.0-1.0); MONOCYTES % (AUTO) 10 % (0-12); NEUTROPHILS # (AUTO) 4.8 X 10^3 (1.8-7.8); NEUTROPHILS % (AUTO) 71 % (42-75); PLATELET COUNT 329 10^3/uL (130-400); RED CELL DISTRIBUTION WIDTH 15.6 % (10.0-14.5); WHITE BLOOD COUNT 6.8 10^3/uL (4.3-11.0)
[2020-01-14 03:49] LABS: SMEAR SCAN COMMENT YES
[2020-01-14 04:07] LABS: BUN/CREATININE RATIO 17; CALCIUM 8.7 MG/DL (8.5-10.1); CARBON DIOXIDE 34 MMOL/L (21-32); CHLORIDE 93 MMOL/L (98-107); CREATININE SERUM 0.86 MG/DL (0.60-1.30); GFR ESTIMATED > 60; GLUCOSE 155 MG/DL (70-105); MAGNESIUM 1.8 MG/DL (1.6-2.4); PHOSPHORUS 4.3 MG/DL (2.3-4.7); POTASSIUM 4.9 MMOL/L (3.6-5.0); SODIUM 141 MMOL/L (135-145)
--- NOTE | 2020-01-14 04:52 | Pulmonary Consultation ---
History of Present Illness History of Present Illness Date Seen by Provider: January 14, 2020 Time Seen by Provider: 04:45 Date of Admission Allergies and Home Medications Allergies Coded Allergies: No Known Drug Allergies (Verified , 08/02/08) Home Medications Furosemide 40 Mg Tablet, 40 MG PO DAILY, (Reported) Lisinopril 5 Mg Tablet, 5 MG PO DAILY, (Reported) Metoprolol Succinate 25 Mg Tab.er.24h, 25 MG PO DAILY, (Reported) Past Nndwrmn-Ncscnf-Vmofve Hx Past Med/Social Hx: Reviewed Nursing Past Med/Soc Hx Patient Social History Alcohol Use: Denies Use Recreational Drug Use: No Smoking Status: Former Smoker Former Smoker, Quit: December 18, 1987 Recent Foreign Travel: No Contact w/Someone Who Travel: No Recent Infectious Disease Expo: No Recent Hopitalizations: No Physical Abuse: No Sexual Abuse: No Mistreated: No Fear: No Immunizations Up To Date Date of Pneumonia Vaccine: Jul 18, 2019 Date of Influenza Vaccine: Apr 24, 2012 Past Medical History Surgeries: Yes Cardiac (pericardial window) Respiratory: Yes Pneumonia Cardiac: Yes Chronic Edema/Swelling, Hypertension Neurological: No Reproductive Disorders: No Female Reproductive Disorders: Denies Genitourinary: No Gastrointestinal: No Musculoskeletal: No Endocrine: No Cancer: No Psychosocial: No Integumentary: No Blood Disorders: No Adverse Reaction/Blood Tranf: No Family Medical History Reviewed Nursing Family Hx Patient reports no known family medical history. Review of Systems Time Seen by Provider: 04:53 Sepsis Event Evaluation Height, Weight, BMI Height: 5'0.00" Weight: 185lbs. oz. [id number]; 34.00 BMI Method: Exam Exam Vital Signs Date Time Temp Pulse Resp B/P (MAP) Pulse Ox O2 Delivery O2 Flow Rate FiO2 01/14/20 03:00 97 20 131/72 (91) 96 High Flow N/C 10.00 01/14/20 02:00 105 22 128/81 (97) 96 High Flow N/C 10.00 01/14/20 01:46 95 High Flow N/C 10.00 62 01/14/20 01:00 104 20 135/71 (92) 97 High Flow N/C 10.00 01/14/20 01:00 104 01/14/20 00:00 95 High Flow N/C 10.00 01/14/20 00:00 108 28 140/76 (97) 94 High Flow N/C 10.00 01/14/20 00:00 35.8 01/13/20 23:00 106 15 123/77 (92) 95 High Flow N/C 10.00 01/13/20 22:27 94 High Flow N/C 10.00 64 01/13/20 22:00 104 17 122/72 (89) 93 High Flow N/C 10.00 01/13/20 21:00 108 18 128/80 (96) 93 High Flow N/C 10.00 01/13/20 20:28 36.0 113 23 145/86 (105) 94 High Flow N/C 10.00 01/13/20 20:00 95 High Flow N/C 10.00 01/13/20 20:00 111 12 145/86 (105) 94 Vapotherm 40.00 60.00 01/13/20 19:50 95 High Flow N/C 10.00 62 01/13/20 19:00 114 01/13/20 19:00 116 18 141/86 (104) 95 Vapotherm 40.00 60.00 01/13/20 18:00 113 37 124/71 (88) 92 Vapotherm 40.00 60.00 01/13/20 17:54 92 High Flow N/C 10.00 62 01/13/20 17:00 112 24 117/78 (91) 94 Vapotherm 40.00 60.00 01/13/20 16:00 104 18 122/64 (83) 98 Vapotherm 40.00 60.00 01/13/20 16:00 Nasal Cannula 01/13/20 15:09 105 29 95 55.00 01/13/20 15:00 96 Vapotherm 40.00 60.00 01/13/20 14:00 99 Vapotherm 40.00 60.00 01/13/20 13:03 NIV Bilevel 55.00 01/13/20 13:02 113 01/13/20 13:00 106 27 94 Vapotherm 40.00 60.00 01/13/20 12:00 93 NIV Bilevel 55 01/13/20 12:00 106 27 131/60 (83) 94 Vapotherm 40.00 60.00 01/13/20 11:33 Vapotherm 40.00 60.00 01/13/20 11:31 Vapotherm 40.00 60 01/13/20 11:29 NIV Bilevel 55.00 01/13/20 11:00 101 25 93 NIV Bilevel 65.00 01/13/20 10:31 101 27 97 65.00 01/13/20 10:00 95 19 NIV Bilevel 65.00 01/13/20 09:00 118 37 94 NIV Bilevel 65.00 01/13/20 08:00 93 NIV Bilevel 55 01/13/20 08:00 98 23 134/96 (109) 96 NIV Bilevel 65.00 01/13/20 07:50 36.2 01/13/20 07:07 97 01/13/20 07:00 89 24 118/60 (79) 79 NIV Bilevel 65.00 01/13/20 06:54 93 109/67 (81) 91 NIV Bilevel 65.00 01/13/20 06:53 89 21 91 65.00 01/13/20 06:00 89 19 94/57 (69) 91 NIV Bilevel 65.00 01/13/20 05:00 87 21 103/55 (71) 89 NIV Bilevel 65.00 I & O 01/14/20 07:00 Intake Total 1000 ml Output Total 2750 ml Balance -1750 ml Height & Weight Height: 5'0.00" Weight: 185lbs. oz. 83.200063kn; 34.00 BMI Method: General Appearance: No Apparent Distress, WD/WN HEENT: PERRL/EOMI, Pharynx Normal Neck: Non Tender, Supple Respiratory: Decreased Breath Sounds, Respiratory Distress (moderate), Wheezing Cardiovascular: No Murmur, Tachycardia Capillary Refill: Less Than 3 Seconds Gastrointestinal: normal bowel sounds, non tender, other (mild distension) Extremity: Normal Range of Motion, Non Tender, No Calf Tenderness, Pedal Edema (2+ upto knees bilateral) Neurologic/Psychiatric: Alert, Oriented x3 Results Lab Laboratory Tests 01/12/20 18:52 01/13/20 02:36 01/14/20 03:36 Assessment/Plan Assessment/Plan Acute on chronic respiratory failure -Check repeat ABG -Start Duoneb Q 4 -Start solumedrol 40 IV Q 6 -Check CTA of chest COPDAE -Pt uses 2-3 liters of oxygen at home over the last 3yrs. -Start Solumedrol and Duoneb Q 4 -Start Advair -Encourage BiPAP NSTEMI -Cardiology following CHF - Diastolic grade 1 - per echo -Lasix -Monitor Hx of tobacco use -Out pt PFT Morbid obesity with probable SUSANNAH -Out pt testing ELLIE RIGGS DO January 14, 2020 04:52
[2020-01-14 05:10] LABS: ABG BASE EXCESS 18.6 MMOL/L (-2.5-2.5); ABG OXYGEN SATURATION 93 % (94-100); ABG PO2 74 MMHG (79-93); ABG TCO2 48.5 MMOL/L (21.0-31.0)
[2020-01-14 05:13] LABS: ABG PCO2 86 MMHG (35-45); ABG PH 7.33 (7.37-7.43)
[2020-01-14 05:14] LABS: ALLENS TEST YES-POS; INSPIRED O2 60%; PATIENT TEMP 35.4; VENTILATOR NO
[2020-01-14] MEDS: POTASSIUM CL 10MEQ/50ML IVPB 50 ML IV SCH (05:20)
[2020-01-14] MEDS: MAGNESIUM 1 GM/100 ML IVPB 100 ML IV SCH (05:21)
[2020-01-14] MEDS: inSUlin ASPART (NovoLOG) 1 UNIT/0.01 ML (CHARGE PER UNIT) SC SCH (05:21)
[2020-01-14] MEDS: KCL 20 MEQ TAB (K-DUR) PO SCH (05:21)
[2020-01-14] MEDS: methylPREDNISolone 40 MG/ML (Solu-MEDROL) VIAL IV SCH ×4 (07:06→23:11)
--- NOTE | 2020-01-14 07:52 | Diagnostic Imaging Report ---
INDICATION: Acute heart failure. EXAMINATION: Portable chest 3:12 AM There is cardiomegaly. There is pulmonary vascular congestion. There is some interstitial edema. IMPRESSION: Cardiomegaly with pulmonary venous hypertension. The extent of interstitial edema appears to have increased unfavorably compared to the previous day. Dictated by: Dictated on workstation # [id number]
[2020-01-14] MEDS: ADVAIR HFA 115/21 MCG INHALER 8 GM IH SCH ×2 (08:21→21:47)
[2020-01-14] MEDS: RT-ALBUTEROL/IPRATROPIUM 3 ML (DUONEB) VIAL INH SCH ×5 (08:22→21:48)
[2020-01-14] MEDS: lisINopril 5 MG (PRINIVIL) TABLET PO SCH (08:27)
[2020-01-14] MEDS: FUROSEMIDE 40 MG/4 ML INJ (LASIX) IV SCH ×2 (08:31→18:12)
[2020-01-14] MEDS ORDERED: HOLD METFORMIN - RECEIVED CONTRAST 20 ML VIAL IV SCH (08:45)
[2020-01-14] MEDS ORDERED: CATHETER FLUSH 10 ML SYR IV PRN (08:45)
[2020-01-14] MEDS ORDERED: IOHEXOL 350 MG/ML 100 ML (OMNIPAQUE 350) VIAL IV ONE (08:45)
[2020-01-14] MEDS ORDERED: NS 100 ML (IVPB) BAG IV ONE (08:45)
--- NOTE | 2020-01-14 09:23 | Diagnostic Imaging Report ---
PROCEDURE: CT angiography of the chest with contrast. TECHNIQUE: Multiple contiguous axial images were obtained through the chest after uneventful bolus administration of intravenous contrast. 3D reconstructed CTA MIP acquisitions were also performed. Auto Exposure Controls were utilized during the CT exam to meet ALARA standards for radiation dose reduction. INDICATION: Shortness of air and cough. Correlation is made with prior CT chest from 09/25/2012. The heart is enlarged. The thoracic aorta is of normal caliber. No dissection is identified. The pulmonary arterial system is without thromboembolism. No definite filling defects are seen within central, lobar or segmental branches. Pulmonary arteries do appear to be somewhat dilated and this could be secondary to a component of pulmonary hypertension. There are enlarged lymph nodes in the ron bilaterally. This is new since the CT from 2012. There are some prominent lymph nodes in the mediastinum and subcarinal region as well. No pericardial or pleural fluid is identified. A parenchymal evaluation does show a somewhat mosaic attenuation to the lung pate bilaterally. There are areas of parenchymal consolidation in the right lower lobe. Imaging through the upper abdomen is unremarkable. IMPRESSION: 1. Cardiomegaly. 2. No evidence of pulmonary embolism or thoracic aortic dissection. Pulmonary hypertension cannot be excluded. 3. Development of mediastinal and hilar lymphadenopathy. While this could be reactive, possibility of neoplastic or lymphomatous involvement cannot be entirely excluded. 4. Mosaic attenuation in both lung pate with parenchymal consolidation in the right lower lobe. Dictated by: Dictated on workstation # [id number]
[2020-01-14] MEDS ORDERED: PIPERACILLIN/TAZO 4.5 GM/NS 100 ML IV NR ×2 (10:30)
--- NOTE | 2020-01-14 10:31 | Progress Note ---
Subjective Subjective/Events-last exam Afebrile, states she is feeling better, but is still requiring high levels of supplemental oxygen and retaining significant CO2. Focused Exam Lactate Level 01/12/20 18:52: Lactic Acid Level 1.40 Objective Exam Last Set of Vital Signs Vital Signs Date Time Temp Pulse Resp B/P (MAP) Pulse Ox O2 Delivery O2 Flow Rate FiO2 01/14/20 10:00 87 17 121/65 (83) 97 NIV Bilevel 55.00 01/14/20 08:00 36.2 01/14/20 04:58 70 Capillary Refill : Less Than 3 Seconds I&O Intake and Output 01/14/20 00:00 Intake Total 1500 ml Output Total 2450 ml Balance -950 ml Intake Oral 1500 ml Output Urine Total 2450 ml General: Alert, No Acute Distress Lungs: Other (ronchi, increased work of breathing) Heart: Regular Rate Abdomen: Normal Bowel Sounds, Soft Neuro: Normal Speech Psych/Mental Status: Mood NL Results/Procedures Lab Laboratory Tests 01/13/20 11:20: Glucometer 102 01/13/20 14:55: Glucometer 119H 01/13/20 20:26: Glucometer 160H 01/14/20 03:36: White Blood Count 6.8, Red Blood Count 2.60L, Hemoglobin 8.6#L, Hematocrit 27L, Mean Corpuscular Volume 102H, Mean Corpuscular Hemoglobin 33, Mean Corpuscular Hemoglobin Concent 32, Red Cell Distribution Width 15.6H, Platelet Count 329, Mean Platelet Volume 9.6, Neutrophils (%) (Auto) 71, Lymphocytes (%) (Auto) 16, Monocytes (%) (Auto) 10, Eosinophils (%) (Auto) 3, Basophils (%) (Auto) 0, Neutrophils # (Auto) 4.8, Lymphocytes # (Auto) 1.1, Monocytes # (Auto) 0.7, Eosinophils # (Auto) 0.2, Basophils # (Auto) 0.0, Sodium Level 141, Potassium Level 4.9, Chloride Level 93L, Carbon Dioxide Level 34H, Anion Gap 14, Blood Urea Nitrogen 15, Creatinine 0.86, Estimat Glomerular Filtration Rate > 60, BUN/Creatinine Ratio 17, Glucose Level 155H, Calcium Level 8.7, Phosphorus Level 4.3, Magnesium Level 1.8, Smear Scan YES 01/14/20 05:05: Blood Gas Puncture Site RT RADIAL, Blood Gas Patient Temperature 35.4, Arterial Blood pH 7.33*L, Arterial Blood Partial Pressure CO2 86*H, Arterial Blood Partial Pressure O2 74L, Arterial Blood HCO3 46*H, Arterial Blood Total CO2 48.5H, Arterial Blood Oxygen Saturation 93L, Arterial Blood Base Excess 18.6H, Darrius Test YES-POS, Blood Gas Ventilator Setting NO, Blood Gas Inspired Oxygen 60% Microbiology 01/12/20 MRSA Screen - Final, Complete MRSA not isolated 01/12/20 Urine Culture - Preliminary, Resulted Gram Negative Jeovany 01/12/20 Blood Culture - Preliminary, Resulted No growth Radiology CXR 01/11: IMPRESSION: Increased heart size, vascular caliber, and likely at least mild perihilar edema compatible with failure pattern. Assessment/Plan Assessment/Plan (1) Elevated troponin Status: Acute Assessment & Plan: Minimal elevation, suspect strain related, Cardiology cons ulted, appreciate recommendations. (2) Acute heart failure Status: Acute Assessment & Plan: Suspected history of CHF, per clinic chart she did not get previously ordered echo and work-up. Cardiology consulted, IV lasix started and echo ordered. Requiring bipap currently. 01/13 echo with grade 1 diastolic dysfunction, normal systolic function. Given significant hypercapnia, suspect respiratory failure is multifactorial. Qualifiers: Qualified Codes: I50.9 - Heart failure, unspecified (3) Respiratory failure with hypoxia and hypercapnia Status: Acute Assessment & Plan: Was already using oxygen at home but without clear diagnosis and has significant hypercapnia concerning for underlying lung disease. Appreciate Dr. Bella's recommendations, CTA chest pending, on IV steroids and breathing treatments. Continuing on bipap. Qualifiers: Qualified Codes: J96.21 - Acute and chronic respiratory failure with hypoxia; J96.22 - Acute and chronic respiratory failure with hypercapnia (4) DVT prophylaxis Status: Acute Assessment & Plan: Enoxaparin Clinical Quality Measures DVT/VTE Risk/Contraindication: Risk Factor Score Per Nursin RFS Level Per Nursing on Admit: 4+=Very High PARUL DIAZ MD January 14, 2020 10:31
[2020-01-14] MEDS: ENOXAPARIN 40 MG/0.4 ML (LOVENOX) SYR SQ SCH (10:44)
--- NOTE | 2020-01-14 11:25 | NUR ---
Pastoral care visit.
--- NOTE | 2020-01-14 12:23 | Cardiology Progress Note ---
Cardiology SOAP Progress Note Subjective: Still very short of breath. Objective: I&O/Vital Signs 01/14/20 01/14/20 01/14/20 01/14/20 01:00 01:00 01:46 02:00 Pulse 104 104 105 Resp 20 22 B/P (MAP) 135/71 (92) 128/81 (97) Pulse Ox 97 95 96 O2 Delivery High Flow N/C High Flow N/C High Flow N/C O2 Flow Rate 10.00 10.00 10.00 FiO2 62 01/14/20 01/14/20 01/14/20 01/14/20 03:00 04:00 04:00 04:00 Temp 35.4 Pulse 97 92 Resp 20 33 B/P (MAP) 131/72 (91) 130/76 (94) Pulse Ox 96 97 95 O2 Delivery High Flow N/C High Flow N/C High Flow N/C O2 Flow Rate 10.00 10.00 10.00 01/14/20 01/14/20 01/14/20 01/14/20 04:58 05:00 05:20 05:30 Pulse 100 Resp 15 B/P (MAP) 134/87 (103) Pulse Ox 95 92 O2 Delivery High Flow N/C High Flow N/C NIV Bilevel NIV Bilevel O2 Flow Rate 12.00 12.00 40.00 55.00 FiO2 70 01/14/20 01/14/20 01/14/20 01/14/20 06:00 07:00 07:01 07:05 Pulse 98 101 96 99 Resp 21 10 B/P (MAP) 111/67 (82) 102/83 (89) Pulse Ox 90 95 O2 Delivery NIV Bilevel NIV Bilevel O2 Flow Rate 55.00 55.00 01/14/20 01/14/20 01/14/20 01/14/20 08:00 08:00 08:00 08:22 Temp 36.2 Pulse 105 96 Resp 22 18 B/P (MAP) 104/65 (78) Pulse Ox 94 99 95 O2 Delivery NIV Bilevel NIV Bilevel O2 Flow Rate 55.00 55.00 01/14/20 01/14/20 01/14/20 01/14/20 08:34 09:00 10:00 10:44 Pulse 96 102 87 80 Resp 18 19 17 17 B/P (MAP) 114/68 (83) 121/65 (83) Pulse Ox 95 94 97 90 O2 Delivery NIV Bilevel NIV Bilevel O2 Flow Rate 55.00 55.00 55.00 55.00 01/14/20 01/14/20 01/14/20 11:00 12:00 12:00 Temp 36.1 Pulse 84 89 Resp 16 10 B/P (MAP) 113/59 (77) 111/60 (77) Pulse Ox 93 91 O2 Delivery NIV Bilevel NIV Bilevel O2 Flow Rate 55.00 55.00 01/14/20 00:00 Intake Total 850 ml Output Total 1850 ml Balance -1000 ml Weight (Pounds): 185 Weight (Calculated Kilograms): 83.284057 Constitutional: appears stated age, apparent distress, well-developed, well- nourished Respiratory: accessory muscle use, respiratory distress, chest is bilaterally symmetric, other (decreased breath sounds bilaterally.) Cardiovascular: regular rate-rhythm, S1 and S2; No systolic murmur Gastrointestional: soft, audible bowel sounds; No spleenomegaly Extremities: normal range of motion, non-tender, normal inspection; No clubbing, No cyanosis; significant edema Neurologic/Psychiatric: no motor/sensory deficits, alert, normal mood/affect, oriented x 3, power is 5/5 both on sides Skin: normal color, warm/dry Results/Procedures: Labs Laboratory Tests 01/13/20 14:55: Glucometer 119H 01/13/20 20:26: Glucometer 160H 01/14/20 03:36: White Blood Count 6.8, Red Blood Count 2.60L, Hemoglobin 8.6#L, Hematocrit 27L, Mean Corpuscular Volume 102H, Mean Corpuscular Hemoglobin 33, Mean Corpuscular Hemoglobin Concent 32, Red Cell Distribution Width 15.6H, Platelet Count 329, Mean Platelet Volume 9.6, Neutrophils (%) (Auto) 71, Lymphocytes (%) (Auto) 16, Monocytes (%) (Auto) 10, Eosinophils (%) (Auto) 3, Basophils (%) (Auto) 0, Neutrophils # (Auto) 4.8, Lymphocytes # (Auto) 1.1, Monocytes # (Auto) 0.7, Eosinophils # (Auto) 0.2, Basophils # (Auto) 0.0, Sodium Level 141, Potassium Level 4.9, Chloride Level 93L, Carbon Dioxide Level 34H, Anion Gap 14, Blood Urea Nitrogen 15, Creatinine 0.86, Estimat Glomerular Filtration Rate > 60, BUN/Creatinine Ratio 17, Glucose Level 155H, Calcium Level 8.7, Phosphorus Level 4.3, Magnesium Level 1.8, Smear Scan YES 01/14/20 05:05: Blood Gas Puncture Site RT RADIAL, Blood Gas Patient Temperature 35.4, Arterial Blood pH 7.33*L, Arterial Blood Partial Pressure CO2 86*H, Arterial Blood Partial Pressure O2 74L, Arterial Blood HCO3 46*H, Arterial Blood Total CO2 48.5H, Arterial Blood Oxygen Saturation 93L, Arterial Blood Base Excess 18.6H, Darrius Test YES-POS, Blood Gas Ventilator Setting NO, Blood Gas Inspired Oxygen 60% Microbiology 01/12/20 MRSA Screen - Final, Complete MRSA not isolated 01/12/20 Urine Culture - Preliminary, Resulted Gram Negative Jeovany 01/12/20 Blood Culture - Preliminary, Resulted No growth A/P: Assessment/Dx: Acute congestive heart failure, Acute hypercarbic respiratory failure, Hypertension, Positive troponin Plan: Acute congestive heart failure, checks x-ray showed possible hilar congestion, BNP 500. Some improvement with IV Lasix. Continue Lasix IV 80 mg daily. We'll request an echocardiogram. However shortness of breath is out of proportion to the amount of congestive heart failure. Therefore I will request that the primary team consider pulmonology consultation. Acute hypercarbic respiratory failure, likely multifactorial. Some improvement with IV Lasix. Hypertension, stable blood pressure. Positive troponin, unclear etiology. Could be type II myocardial infarction due to acute respiratory failure/acute congestive heart failure. However non-STEMI due to plaque rupture cannot be ruled out. The patient will likely require coronary angiography or noninvasive testing when a little bit more stable. Thank you for your consultation. Please call me if you have any questions. Stanton Luo MD, FACP, FACC, FSCAI, FHRS, CCDS Interventional Cardiology Cardiac Electrophysiology Vascular Medicine and Endovascular Interventions Focused Exam Lactate Level 01/12/20 18:52: Lactic Acid Level 1.40 Ceci LUO MD January 14, 2020 12:23
--- NOTE | 2020-01-14 14:01 | NUR ---
CM/SS: Visited with pt as to plan for discharge Plan: Undetermined at this time Summary: Pt reports feeling better today. She continues to wear the bipap. No date of discharge has been determined at this time. This worker will follow up.
[2020-01-14] MEDS: PIPERACILLIN/TAZOBACTAM (BULK) 4.5 GM in NS (IVPB) 100 ML IV SCH ×2 (16:44→23:48)
--- NOTE | 2020-01-14 19:27 | NUR ---
0776 this nurse notified about patients elevated troponin 1.457 1150 patient arrived back to room via bed with cathode builder nurse. 1206 this nurse spoke with on the phone. order received to get a 12 lead EKG and troponin. this nurse obtained an EKG and updated on EKG results and on troponin results that were drawn by lab at 1250. 1337 this nurse reported to that patient is having some chest discomfort. order received to do another EKG and troponin in 3 hours. Morphine given for chest discomfort. 175 This nurse notified about patients EKG results, that he just started having trigeminy and about his recent troponin of 2.362. This nurse received orders to give metoprolol 100mg PO now and then daily and to give full dose lovenox one time now. 184 this nurse notified on patients elevated blood pressure. order received to give patient PO lisinopril 20mg now and to make sure patient has 20mg PO lisinopril ordered daily. 1914 VSS. Blood pressure is 121/98.
[2020-01-15] VITALS (22 sets, daily range): BP systolic 82–129; BP diastolic 43–88
[2020-01-15] MEDS: RT-ALBUTEROL/IPRATROPIUM 3 ML (DUONEB) VIAL INH SCH ×6 (02:04→22:55)
[2020-01-15 03:27] LABS: ABG BASE EXCESS 16.4 MMOL/L (-2.5-2.5); ABG OXYGEN SATURATION 100 % (94-100); ABG PH 7.38 (7.37-7.43); ABG PO2 150 MMHG (79-93); ABG TCO2 44.9 MMOL/L (21.0-31.0)
[2020-01-15 03:29] LABS: ABG PCO2 73 MMHG (35-45)
[2020-01-15 03:30] LABS: ALLENS TEST YES-POS; INSPIRED O2 70%; PATIENT TEMP 36.2; VENTILATOR YES
[2020-01-15 03:42] LABS: BASOPHILS % (AUTO) 0 % (0-10); EOSINOPHILS % (AUTO) 0 % (0-10); HEMATOCRIT 40 % (35-52); HEMOGLOBIN 11.4 G/DL (11.5-16.0); LYMPHOCYTES # (AUTO) 0.4 X 10^3 (1.0-4.0); LYMPHOCYTES % (AUTO) 7 % (12-44); MEAN CORPUSCULAR HEMOGLOBIN 28 PG (25-34); MEAN CORPUSCULAR HGB CONC 29 G/DL (32-36); MEAN CORPUSCULAR VOLUME 96 FL (80-99); MEAN PLATELET VOLUME 10.8 FL (7.4-10.4); MONOCYTES # (AUTO) 0.1 X 10^3 (0.0-1.0); MONOCYTES % (AUTO) 2 % (0-12); NEUTROPHILS # (AUTO) 5.6 X 10^3 (1.8-7.8); NEUTROPHILS % (AUTO) 91 % (42-75); PLATELET COUNT 211 10^3/uL (130-400); RED CELL DISTRIBUTION WIDTH 16.2 % (10.0-14.5); WHITE BLOOD COUNT 6.2 10^3/uL (4.3-11.0)
[2020-01-15 04:00] LABS: CALCIUM 8.8 MG/DL (8.5-10.1)
[2020-01-15 04:05] LABS: CREATININE SERUM 0.97 MG/DL (0.60-1.30); PHOSPHORUS 3.9 MG/DL (2.3-4.7)
[2020-01-15 04:07] LABS: MAGNESIUM 1.9 MG/DL (1.6-2.4)
[2020-01-15] MEDS: MAGNESIUM 1 GM/100 ML IVPB 100 ML IV SCH (04:19)
[2020-01-15] MEDS: KCL 20 MEQ TAB (K-DUR) PO SCH (04:19)
[2020-01-15] MEDS: POTASSIUM CL 10MEQ/50ML IVPB 50 ML IV SCH (04:19)
[2020-01-15] MEDS: methylPREDNISolone 40 MG/ML (Solu-MEDROL) VIAL IV SCH ×3 (05:55→15:44)
[2020-01-15] MEDS: FUROSEMIDE 40 MG/4 ML INJ (LASIX) IV SCH ×2 (05:57→15:44)
--- NOTE | 2020-01-15 05:57 | NUR ---
Order to hold am dose of Lasix per Dr Bella
--- NOTE | 2020-01-15 06:01 | Pulmonary Progress Note ---
Subjective Time Seen by a Provider: 05:56 Subjective/Events-last exam Pt currently on BiPap and requiring 60% 02 Sepsis Event Evaluation Height, Weight, BMI Height: 5'0.00" Weight: 185lbs. oz. 83.289461wi; 34.00 BMI Method: Focused Exam Lactate Level 01/12/20 18:52: Lactic Acid Level 1.40 Exam Exam Vital Signs Date Time Temp Pulse Resp B/P (MAP) Pulse Ox O2 Delivery O2 Flow Rate FiO2 01/15/20 05:00 69 19 111/54 (73) 95 NIV Bilevel 60.00 01/15/20 04:00 77 17 110/59 (76) 98 NIV Bilevel 60.00 01/15/20 03:22 NIV Bilevel 60.00 01/15/20 03:05 36.2 NIV Bilevel 70.00 01/15/20 03:05 100 NIV Bilevel 70 01/15/20 03:00 98 17 122/58 (79) 97 NIV Bilevel 70.00 01/15/20 02:05 74 19 90 70.00 01/15/20 02:00 75 22 100/56 (71) 92 NIV Bilevel 70.00 01/15/20 01:05 NIV Bilevel 70.00 01/15/20 01:00 81 01/15/20 01:00 74 16 82/43 (56) 95 NIV Bilevel 60.00 01/15/20 00:00 69 24 99/59 (72) 97 NIV Bilevel 60.00 01/14/20 23:15 98 NIV Bilevel 60 01/14/20 23:10 36.8 NIV Bilevel 60.00 01/14/20 23:08 NIV Bilevel 60.00 01/14/20 23:00 66 28 99/57 (71) 98 NIV Bilevel 70.00 01/14/20 22:00 84 14 91/54 (66) 97 NIV Bilevel 70.00 01/14/20 21:48 81 16 93 70.00 01/14/20 21:00 85 15 105/55 (72) 100 NIV Bilevel 70.00 01/14/20 20:05 NIV Bilevel 70.00 01/14/20 20:00 71 16 110/61 (77) 93 NIV Bilevel 60.00 01/14/20 19:40 93 NIV Bilevel 60 01/14/20 19:00 36.7 79 18 101/59 (73) 93 NIV Bilevel 60.00 01/14/20 19:00 88 01/14/20 18:22 113 21 96 60.00 01/14/20 18:00 101 17 133/65 (87) 97 NIV Bilevel 55.00 01/14/20 17:00 105 22 109/65 (80) 95 NIV Bilevel 55.00 01/14/20 16:00 84 18 110/63 (79) 94 NIV Bilevel 55.00 01/14/20 16:00 High Flow N/C 10.00 01/14/20 15:00 94 19 131/66 (87) 94 NIV Bilevel 55.00 01/14/20 14:40 94 High Flow N/C 10.00 01/14/20 14:00 96 15 111/70 (84) 96 NIV Bilevel 55.00 01/14/20 13:04 94 01/14/20 13:00 77 19 114/78 (90) 92 NIV Bilevel 55.00 01/14/20 12:00 94 NIV Bilevel 01/14/20 12:00 89 10 111/60 (77) 91 NIV Bilevel 55.00 01/14/20 12:00 36.1 01/14/20 11:00 84 16 113/59 (77) 93 NIV Bilevel 55.00 01/14/20 10:44 80 17 90 55.00 01/14/20 10:00 87 17 121/65 (83) 97 NIV Bilevel 55.00 01/14/20 09:00 102 19 114/68 (83) 94 NIV Bilevel 55.00 01/14/20 08:34 96 18 95 55.00 01/14/20 08:22 96 18 95 55.00 01/14/20 08:00 105 22 104/65 (78) 99 NIV Bilevel 55.00 01/14/20 08:00 36.2 01/14/20 08:00 94 NIV Bilevel 01/14/20 07:05 99 01/14/20 07:01 96 01/14/20 07:00 101 10 102/83 (89) 95 NIV Bilevel 55.00 01/14/20 06:00 98 21 111/67 (82) 90 NIV Bilevel 55.00 I & O 01/15/20 07:00 Intake Total 1040 ml Output Total 1980 ml Balance -940 ml Height & Weight Height: 5'0.00" Weight: 185lbs. oz. 83.507661gd; 34.00 BMI Method: General Appearance: No Apparent Distress, WD/WN, Obese HEENT: PERRL/EOMI, Pharynx Normal Neck: Non Tender, Supple Respiratory: Decreased Breath Sounds, Respiratory Distress (moderate), Wheezing Cardiovascular: No Murmur, Tachycardia Capillary Refill: Less Than 3 Seconds Gastrointestinal: normal bowel sounds, non tender, other (mild distension) Extremity: Normal Range of Motion, Non Tender, No Calf Tenderness, Pedal Edema (2+ upto knees bilateral) Neurologic/Psychiatric: Alert, Oriented x3 Skin: Normal Color, Warm/Dry Lymphatic: No Adenopathy Results Lab Laboratory Tests 01/14/20 03:36 01/15/20 02:41 Assessment/Plan Assessment/Plan Acute on chronic respiratory failure -Pt has improved with BiPAP -Trial pt to Vapotherm and titrate oxygen down -Consideration for heart cath today vs Saturday depending on how pt is doing with Vapotherm. -Secondary to oxygen requirements and severe SUSANNAH pt may need intubation for heart cath. -Duoneb Q 4 add Pulmicort -solumedrol 40 IV Q 6 -CTA of chest -reviewed No PE -Check PCT. COPDAE -Pt uses 2-3 liters of oxygen at home over the last 3yrs. - Solumedrol and Duoneb Q 4 -Encourage BiPAP NSTEMI -Cardiology following CHF - Diastolic grade 1 - per echo -Lasix -- Hold this AM dose secondary to mild hypotension and increasing BUN. -Recheck BNP -Monitor Hx of tobacco use -Out pt PFT Morbid obesity with probable SUSANNAH -Out pt testing ELLIE RIGGS DO January 15, 2020 06:01
[2020-01-15] MEDS: PIPERACILLIN/TAZOBACTAM (BULK) 4.5 GM in NS (IVPB) 100 ML IV SCH ×2 (07:55→15:44)
[2020-01-15] MEDS: lisINopril 5 MG (PRINIVIL) TABLET PO SCH (07:55)
--- NOTE | 2020-01-15 08:29 | Diagnostic Imaging Report ---
INDICATION: Acute heart failure. COMPARISON: 01/14/2020. TECHNIQUE: Single frontal radiograph of the chest dated 01/15/2020. FINDINGS: The cardiac silhouette is enlarged, though similar to the prior examination. Mild central pulmonary vascular congestion, appearing improved since the prior examination. Improved aeration of the lungs with improved bilateral predominantly interstitial opacities. More focal right basilar consolidation is also again noted, though appearing improved from prior exam. No large volume pleural effusion. No pneumothorax. No acute osseous abnormality. IMPRESSION: Improved aeration of the lungs with improved though persisting bilateral interstitial opacities with more focal consolidation within the right lung base. Stable enlargement of cardiac silhouette with improved central pulmonary vascular congestion. Dictated by: Dictated on workstation # [id number]
--- NOTE | 2020-01-15 08:46 | Physician Query Clarification ---
"Physician Query-General Query to Physician: The medical record reflects the following clinical scenario: History/Risk factors: CHF and HTN Clinical Findings: Chest X Ray showing congestion, Echo showing Diastolic dysfu nction Treatment: IV Lasix, Oxygen Question: Can you further specify Acute heart failure per the clinical indicators above? Please document response in the Progress Notes or Discharge Summary. 1. Acute Diastolic Heart Failure 2. Acute Heart Failure (as currently documented) 3. Other, with explanation of clinical findings 4. Clinically undetermined, no explanation for clinical findings Please remember a lack of response to the above will prompt a phone page by CDI/coding staff. In responding to this query, please exercise your independent professional judgment. The purpose of this communication is to more accurately reflect the complexity of your patients condition. The fact that a question is asked does not imply that any particular answer is desired or expected. Thank you for timely response to this clarification. Christy De La Garza, MSN, RN RN Specialist-Clinical Doc Improvement CD -Health Info Mgmt Operations [address] [facility] t: [phone] | f: [phone] If you are unable to reach me at my extension, I may be working from home. Please contact me at [phone] PHYSICIAN RESPONSE: Based on the clinical findings in the record, please respond to the query above on this document as an addendum. Physician Response: Physician Response 1 If you have questions please contact: Aircraft Engineer: Ext: Thank you for your time and cooperation. Clinical Tripoler/Aircraft Engineer This is a permanent part of the medical record CHRISTY DE LA GARZA January 15, 2020 08:46 PARUL DIAZ MD January 15, 2020 10:43"
--- NOTE | 2020-01-15 09:20 | Progress Note ---
Subjective Subjective/Events-last exam Afebrile, states she is feeling better, hoping she'll be able to go home soon. Focused Exam Lactate Level 01/12/20 18:52: Lactic Acid Level 1.40 Objective Exam Last Set of Vital Signs Vital Signs Date Time Temp Pulse Resp B/P (MAP) Pulse Ox O2 Delivery O2 Flow Rate FiO2 01/15/20 08:00 91 Vapotherm 45 01/15/20 08:00 95 19 105/74 (84) 30.00 45.00 01/15/20 08:00 36.1 Capillary Refill : Less Than 3 Seconds I&O Intake and Output 01/15/20 00:00 Intake Total 970 ml Output Total 2300 ml Balance -1330 ml Intake Oral 850 ml IV Total 120 ml Output Urine Total 2300 ml General: Alert, No Acute Distress Lungs: Other (ronchi throughout) Heart: Regular Rate Neuro: Normal Speech Psych/Mental Status: Mood NL Results/Procedures Lab Laboratory Tests 01/15/20 02:41: White Blood Count 6.2, Red Blood Count 4.12L, Hemoglobin 11.4#L, Hematocrit 40, Mean Corpuscular Volume 96, Mean Corpuscular Hemoglobin 28, Mean Corpuscular Hemoglobin Concent 29L, Red Cell Distribution Width 16.2H, Platelet Count 211, Mean Platelet Volume 10.8H, Neutrophils (%) (Auto) 91H, Lymphocytes (%) (Auto) 7L, Monocytes (%) (Auto) 2, Eosinophils (%) (Auto) 0, Basophils (%) (Auto) 0, Neutrophils # (Auto) 5.6, Lymphocytes # (Auto) 0.4L, Monocytes # (Auto) 0.1, Eosinophils # (Auto) 0.0, Basophils # (Auto) 0.0, Sodium Level 140, Potassium Level 4.0, Chloride Level 88L, Carbon Dioxide Level 41H, Anion Gap 11, Blood Urea Nitrogen 20H, Creatinine 0.97, Estimat Glomerular Filtration Rate 57, BUN/Creatinine Ratio 21, Glucose Level 172H, Calcium Level 8.8, Phosphorus Level 3.9, Magnesium Level 1.9, B-Type Natriuretic Peptide 160.9H, Procalcitonin 0.05 01/15/20 03:15: Blood Gas Puncture Site RIGHT RADIAL, Blood Gas Patient Temperature 36.2, Arterial Blood pH 7.38, Arterial Blood Partial Pressure CO2 73*H, Arterial Blood Partial Pressure O2 150H, Arterial Blood HCO3 43*H, Arterial Blood Total CO2 44.9H, Arterial Blood Oxygen Saturation 100, Arterial Blood Base Excess 16.4H, Darrius Test YES-POS, Blood Gas Ventilator Setting YES, Blood Gas Inspired Oxygen 70% Microbiology 01/12/20 MRSA Screen - Final, Complete MRSA not isolated 01/12/20 Urine Culture - Final, Complete 3 or more isolates 01/12/20 Blood Culture - Preliminary, Resulted No growth Radiology CXR 01/11: IMPRESSION: Increased heart size, vascular caliber, and likely at least mild perihilar edema compatible with failure pattern. Assessment/Plan Assessment/Plan (1) Elevated troponin Status: Acute Assessment & Plan: Minimal elevation, suspect strain related, Cardiology consulted, appreciate recommendations. (2) Acute heart failure Status: Acute Assessment & Plan: Suspected history of CHF, per clinic chart she did not get previously ordered echo and work-up. Cardiology consulted, IV lasix started and echo ordered. Requiring bipap at admission. 01/13 echo with grade 1 diastolic dysfunction, normal systolic function. Given significant hypercapnia, suspect respiratory failure is multifactorial. Qualifiers: Qualified Codes: I50.9 - Heart failure, unspecified (3) Respiratory failure with hypoxia and hypercapnia Status: Acute Assessment & Plan: Was already using oxygen at home but without clear diagnosis and has significant hypercapnia concerning for underlying lung disease. Appreciate Dr. Bella's recommendations, CTA chest pending, on IV steroids and breathing treatments. Continuing on bipap. 01/14 CTA negative for PE, did show lymphadenopathy and right lower lung consolidation. Continue Zosyn. Solumedrol per Dr. Bella. On vapotherm at 45% FiO2 this morning. Qualifiers: Qualified Codes: J96.21 - Acute and chronic respiratory failure with hypoxia; J96.22 - Acute and chronic respiratory failure with hypercapnia (4) DVT prophylaxis Status: Acute Assessment & Plan: Enoxaparin Clinical Quality Measures DVT/VTE Risk/Contraindication: Risk Factor Score Per Nursin RFS Level Per Nursing on Admit: 4+=Very High PARUL DIAZ MD January 15, 2020 09:20
[2020-01-15] MEDS: RT-BUDESONIDE NEBS 0.5 MG/2ML (PULMICORT) AMP INH SCH ×2 (09:55→22:56)
--- NOTE | 2020-01-15 09:56 | Cardiology Progress Note ---
Cardiology SOAP Progress Note Subjective: Still short of breath however improved from yesterday. Objective: I&O/Vital Signs 01/14/20 01/14/20 01/14/20 01/14/20 22:00 23:00 23:08 23:10 Temp 36.8 Pulse 84 66 Resp 14 28 B/P (MAP) 91/54 (66) 99/57 (71) Pulse Ox 97 98 O2 Delivery NIV Bilevel NIV Bilevel NIV Bilevel NIV Bilevel O2 Flow Rate 70.00 70.00 60.00 60.00 01/14/20 01/15/20 01/15/20 01/15/20 23:15 00:00 01:00 01:00 Pulse 69 74 81 Resp 24 16 B/P (MAP) 99/59 (72) 82/43 (56) Pulse Ox 98 97 95 O2 Delivery NIV Bilevel NIV Bilevel NIV Bilevel O2 Flow Rate 60.00 60.00 FiO2 60 01/15/20 01/15/20 01/15/20 01/15/20 01:05 02:00 02:05 03:00 Pulse 75 74 98 Resp 22 19 17 B/P (MAP) 100/56 (71) 122/58 (79) Pulse Ox 92 90 97 O2 Delivery NIV Bilevel NIV Bilevel NIV Bilevel O2 Flow Rate 70.00 70.00 70.00 70.00 01/15/20 01/15/20 01/15/20 01/15/20 03:05 03:05 03:22 04:00 Temp 36.2 Pulse 77 Resp 17 B/P (MAP) 110/59 (76) Pulse Ox 100 98 O2 Delivery NIV Bilevel NIV Bilevel NIV Bilevel NIV Bilevel O2 Flow Rate 70.00 60.00 60.00 FiO2 70 01/15/20 01/15/20 01/15/20 01/15/20 05:00 06:00 06:19 06:38 Pulse 69 62 Resp 19 14 B/P (MAP) 111/54 (73) 112/65 (81) Pulse Ox 95 95 95 O2 Delivery NIV Bilevel NIV Bilevel Vapotherm Vapotherm O2 Flow Rate 60.00 60.00 30.00 30.00 45.00 FiO2 45 01/15/20 01/15/20 01/15/20 01/15/20 07:00 07:00 08:00 08:00 Temp 36.1 Pulse 90 97 90 95 Resp 18 12 19 B/P (MAP) 118/63 (81) 105/74 (84) 105/74 (84) Pulse Ox 90 93 90 O2 Delivery Vapotherm Vapotherm Vapotherm O2 Flow Rate 30.00 30.00 30.00 45.00 45.00 45.00 01/15/20 01/15/20 08:00 09:00 Pulse 90 Resp 25 B/P (MAP) 124/82 (96) Pulse Ox 91 91 O2 Delivery Vapotherm Vapotherm O2 Flow Rate 30.00 45.00 FiO2 45 01/15/20 00:00 Intake Total 770 ml Output Total 1450 ml Balance -680 ml Weight (Pounds): 185 Weight (Calculated Kilograms): 83.937113 Constitutional: appears stated age, apparent distress, well-developed, well- nourished Respiratory: accessory muscle use, respiratory distress, chest is bilaterally symmetric, other (decreased breath sounds bilaterally.) Cardiovascular: regular rate-rhythm, S1 and S2; No systolic murmur Gastrointestional: soft, audible bowel sounds; No spleenomegaly Extremities: normal range of motion, non-tender, normal inspection; No clubbing, No cyanosis; significant edema Neurologic/Psychiatric: no motor/sensory deficits, alert, normal mood/affect, oriented x 3, power is 5/5 both on sides Skin: normal color, warm/dry Results/Procedures: Labs Laboratory Tests 01/15/20 02:41: White Blood Count 6.2, Red Blood Count 4.12L, Hemoglobin 11.4#L, Hematocrit 40, Mean Corpuscular Volume 96, Mean Corpuscular Hemoglobin 28, Mean Corpuscular Hemoglobin Concent 29L, Red Cell Distribution Width 16.2H, Platelet Count 211, Mean Platelet Volume 10.8H, Neutrophils (%) (Auto) 91H, Lymphocytes (%) (Auto) 7L, Monocytes (%) (Auto) 2, Eosinophils (%) (Auto) 0, Basophils (%) (Auto) 0, Neutrophils # (Auto) 5.6, Lymphocytes # (Auto) 0.4L, Monocytes # (Auto) 0.1, Eosinophils # (Auto) 0.0, Basophils # (Auto) 0.0, Sodium Level 140, Potassium Level 4.0, Chloride Level 88L, Carbon Dioxide Level 41H, Anion Gap 11, Blood Urea Nitrogen 20H, Creatinine 0.97, Estimat Glomerular Filtration Rate 57, BUN/Creatinine Ratio 21, Glucose Level 172H, Calcium Level 8.8, Phosphorus Level 3.9, Magnesium Level 1.9, B-Type Natriuretic Peptide 160.9H, Procalcitonin 0.05 01/15/20 03:15: Blood Gas Puncture Site RIGHT RADIAL, Blood Gas Patient Temperature 36.2, Arterial Blood pH 7.38, Arterial Blood Partial Pressure CO2 73*H, Arterial Blood Partial Pressure O2 150H, Arterial Blood HCO3 43*H, Arterial Blood Total CO2 44.9H, Arterial Blood Oxygen Saturation 100, Arterial Blood Base Excess 16.4H, Darrius Test YES-POS, Blood Gas Ventilator Setting YES, Blood Gas Inspired Oxygen 70% Microbiology 01/12/20 MRSA Screen - Final, Complete MRSA not isolated 01/12/20 Urine Culture - Final, Complete 3 or more isolates 01/12/20 Blood Culture - Preliminary, Resulted No growth A/P: Assessment/Dx: Acute diastolic congestive heart failure, Acute hypercarbic respiratory failure, Hypertension, Positive troponin, Pulmonary hypertension, moderate to severe tricuspid regurgitation Plan: Acute diastolic congestive heart failure, checks x-ray showed possible hilar congestion, BNP 500. Some improvement with IV Lasix. Continue Lasix IV 80 mg daily. However shortness of breath is out of proportion to the amount of congestive heart failure. Dr. Bella from pulmonary following. Echocardiogram showed normal LV function, LVH with mild diastolic dysfunction. Therefore working diagnoses includes acute diastolic congestive heart failure. Acute hypercarbic respiratory failure, likely multifactorial; COPD exacerbation. Some improvement with IV Lasix. Hypertension, stable blood pressure. Positive troponin, unclear etiology. Could be type II myocardial infarction due to acute respiratory failure/acute congestive heart failure. However non-STEMI due to plaque rupture cannot be ruled out. The patient will likely require coronary angiography or noninvasive testing when a little bit more stable. We will likely schedule for Saturday. Pulmonary hypertension: Likely secondary to severe lung disease. Moderate to severe tricuspid regurgitation: Will continue to follow clinically. Dr. Ray to cover cardiology services over the weekend. Thank you for your consultation. Please call me if you have any questions. Stanton Luo MD, FACP, FACC, FSCAI, FHRS, CCDS Interventional Cardiology Cardiac Electrophysiology Vascular Medicine and Endovascular Interventions Focused Exam Lactate Level 01/12/20 18:52: Lactic Acid Level 1.40 Ceci LUO MD January 15, 2020 09:56
[2020-01-15] MEDS: ENOXAPARIN 40 MG/0.4 ML (LOVENOX) SYR SQ SCH (10:32)
--- NOTE | 2020-01-15 15:54 | NUR ---
1400 and 1500 bp not obtained due to cuff being disconnected after trip to toilet.
[2020-01-15] MEDS: meTOprolol 5 MG/5 ML (LOPRESSOR) VIAL IV SCH (22:39)
[2020-01-16] VITALS (22 sets, daily range): BP systolic 97–172; BP diastolic 49–108
[2020-01-16] MEDS: meTOprolol 5 MG/5 ML (LOPRESSOR) VIAL IV SCH ×4 (00:16→18:22)
[2020-01-16] MEDS: methylPREDNISolone 40 MG/ML (Solu-MEDROL) VIAL IV SCH ×4 (00:16→17:45)
[2020-01-16] MEDS: PIPERACILLIN/TAZOBACTAM (BULK) 4.5 GM in NS (IVPB) 100 ML IV SCH ×3 (00:16→15:51)
[2020-01-16] MEDS: RT-ALBUTEROL/IPRATROPIUM 3 ML (DUONEB) VIAL INH SCH ×6 (02:58→21:46)
[2020-01-16 03:27] LABS: ABG BASE EXCESS 19.3 MMOL/L (-2.5-2.5); ABG OXYGEN SATURATION 97 % (94-100); ABG PCO2 63 MMHG (35-45); ABG PH 7.47 (7.37-7.43); ABG PO2 94 MMHG (79-93); ABG TCO2 46.6 MMOL/L (21.0-31.0)
[2020-01-16 03:32] LABS: ALLENS TEST YES-POS; INSPIRED O2 45%; PATIENT TEMP 37.2; VENTILATOR NO
[2020-01-16 03:37] LABS: BASOPHILS % (AUTO) 0 % (0-10); EOSINOPHILS % (AUTO) 0 % (0-10); HEMATOCRIT 41 % (35-52); HEMOGLOBIN 11.9 G/DL (11.5-16.0); LYMPHOCYTES # (AUTO) 0.4 X 10^3 (1.0-4.0); LYMPHOCYTES % (AUTO) 5 % (12-44); MEAN CORPUSCULAR HEMOGLOBIN 28 PG (25-34); MEAN CORPUSCULAR HGB CONC 29 G/DL (32-36); MEAN CORPUSCULAR VOLUME 94 FL (80-99); MONOCYTES # (AUTO) 0.4 X 10^3 (0.0-1.0); MONOCYTES % (AUTO) 5 % (0-12); NEUTROPHILS # (AUTO) 6.4 X 10^3 (1.8-7.8); NEUTROPHILS % (AUTO) 89 % (42-75); PLATELET COUNT 226 10^3/uL (130-400); RED CELL DISTRIBUTION WIDTH 16.7 % (10.0-14.5); WHITE BLOOD COUNT 7.2 10^3/uL (4.3-11.0)
[2020-01-16] MEDS ORDERED: acetaZOLAMIDE INJ 500 MG (DIAMOX) VIAL IV SCH (03:45)
[2020-01-16 03:46] LABS: POTASSIUM 4.3 MMOL/L (3.6-5.0)
[2020-01-16 03:47] LABS: CALCIUM 9.2 MG/DL (8.5-10.1)
[2020-01-16 03:52] LABS: CREATININE SERUM 1.03 MG/DL (0.60-1.30)
--- NOTE | 2020-01-16 04:36 | Pulmonary Progress Note ---
Subjective Time Seen by a Provider: 04:28 Subjective/Events-last exam Pt appears to be improving Sepsis Event Evaluation Height, Weight, BMI Height: 5'0.00" Weight: 185lbs. oz. 83.312232ux; 34.00 BMI Method: Exam Exam Vital Signs Date Time Temp Pulse Resp B/P (MAP) Pulse Ox O2 Delivery O2 Flow Rate FiO2 01/16/20 04:06 37.2 01/16/20 04:00 75 22 125/71 (89) 95 NIV Bilevel 45.00 01/16/20 03:00 105 14 139/79 (99) 96 NIV Bilevel 45.00 01/16/20 02:58 83 17 96 40.00 01/16/20 02:00 72 108/52 (70) 90 NIV Bilevel 45.00 01/16/20 01:00 82 99/59 (72) 88 NIV Bilevel 45.00 01/16/20 00:20 36.2 NIV Bilevel 45.00 01/16/20 00:00 83 18 97/49 (65) 91 NIV Bilevel 40.00 01/16/20 00:00 93 NIV Bilevel 45 01/15/20 23:00 102 23 117/68 (84) 96 NIV Bilevel 40.00 01/15/20 22:56 84 16 98 50.00 01/15/20 22:12 82 18 98 50.00 01/15/20 22:00 100 14 129/63 (85) 98 NIV Bilevel 50.00 01/15/20 21:55 NIV Bilevel 50.00 01/15/20 21:00 118 12 122/47 (72) 94 Vapotherm 40.00 50.00 01/15/20 20:00 93 Vapotherm 45 01/15/20 20:00 37.1 01/15/20 20:00 126 18 129/70 (89) 95 Vapotherm 40.00 50.00 01/15/20 19:03 93 Vapotherm 30.00 45 01/15/20 19:00 112 01/15/20 19:00 99 19 128/68 (88) 93 Vapotherm 40.00 50.00 01/15/20 18:00 110 24 108/61 (77) 93 Vapotherm 30.00 45.00 01/15/20 17:00 121 25 124/87 (99) 90 Vapotherm 30.00 45.00 01/15/20 16:00 93 Vapotherm 45 01/15/20 16:00 101 20 115/88 (97) 90 Vapotherm 30.00 45.00 01/15/20 15:00 118 24 91 Vapotherm 30.00 45.00 01/15/20 14:31 93 Vapotherm 30.00 45 01/15/20 14:00 105 31 94 Vapotherm 30.00 45.00 01/15/20 13:56 93 Vapotherm 30.00 45 01/15/20 13:00 109 16 121/67 (85) 93 Vapotherm 30.00 45.00 01/15/20 13:00 92 01/15/20 12:00 93 Vapotherm 45 01/15/20 12:00 107 21 128/71 (90) 88 Vapotherm 30.00 45.00 01/15/20 11:47 36.8 01/15/20 11:00 103 21 120/66 (84) 91 Vapotherm 30.00 45.00 01/15/20 10:00 96 18 122/67 (85) 91 Vapotherm 30.00 45.00 01/15/20 09:55 92 Vapotherm 30.00 45 01/15/20 09:00 90 25 124/82 (96) 91 Vapotherm 30.00 45.00 01/15/20 08:00 91 Vapotherm 45 01/15/20 08:00 95 19 105/74 (84) 90 Vapotherm 30.00 45.00 01/15/20 08:00 36.1 90 12 105/74 (84) 93 Vapotherm 30.00 45.00 01/15/20 07:00 97 01/15/20 07:00 90 18 118/63 (81) 90 Vapotherm 30.00 45.00 01/15/20 06:38 Vapotherm 30.00 45.00 01/15/20 06:19 95 Vapotherm 30.00 45 01/15/20 06:00 62 14 112/65 (81) 95 NIV Bilevel 60.00 01/15/20 05:00 69 19 111/54 (73) 95 NIV Bilevel 60.00 I & O 01/16/20 07:00 Intake Total 1330 ml Output Total 150 ml Balance 1180 ml Height & Weight Height: 5'0.00" Weight: 185lbs. oz. 83.805457or; 34.00 BMI Method: General Appearance: No Apparent Distress, WD/WN, Obese HEENT: PERRL/EOMI, Pharynx Normal Neck: Non Tender, Supple Respiratory: Decreased Breath Sounds, Respiratory Distress (moderate), Wheezing Cardiovascular: No Murmur, Tachycardia Capillary Refill: Less Than 3 Seconds Gastrointestinal: normal bowel sounds, non tender, other (mild distension) Extremity: Normal Range of Motion, Non Tender, No Calf Tenderness, Pedal Edema (2+ upto knees bilateral) Neurologic/Psychiatric: Alert, Oriented x3 Skin: Normal Color, Warm/Dry Lymphatic: No Adenopathy Results Lab Laboratory Tests 01/15/20 02:41 01/16/20 03:00 Assessment/Plan Assessment/Plan Acute on chronic respiratory failure -Pt has improved with BiPAP -Trial pt to Vapotherm and titrate oxygen down -Plan for heart cath Saturday depending on how pt is doing with Vapotherm. -Secondary to oxygen requirements and severe SUSANNAH pt may need intubation for heart cath. -Duoneb Q 4 add Pulmicort -solumedrol 40 IV Q 6 -CTA of chest -reviewed No PE Contraction alkalosis with worsening renal function and decreased UO -Recommend Cautious IVF if needed for decreased UO -Lasix restarted yesterday -I recommend holding Lasix. -Will defer to Dr. Servin -Georgeox per EICU secondary to contraction alkalosis -Echo shows EF of 55-65% with grade 1 diastolic dysfunction. -Plan is for heart cath on Saturday. I worry about her being intravascularly dry and getting contrast. COPDAE -Pt uses 2-3 liters of oxygen at home over the last 3yrs. - Continue Solumedrol and Duoneb Q 4 -Encourage BiPAP NSTEMI -Cardiology following CHF - Diastolic grade 1 - per echo -Monitor Hx of tobacco use -Out pt PFT Morbid obesity with probable SUSANNAH -Out pt testing ELLIE RIGGS DO January 16, 2020 04:36
[2020-01-16] MEDS: MAGNESIUM 1 GM/100 ML IVPB 100 ML IV SCH (06:09)
[2020-01-16] MEDS: KCL 20 MEQ TAB (K-DUR) PO SCH (06:09)
[2020-01-16] MEDS: POTASSIUM CL 10MEQ/50ML IVPB 50 ML IV SCH (06:09)
[2020-01-16] MEDS: RT-BUDESONIDE NEBS 0.5 MG/2ML (PULMICORT) AMP INH SCH ×2 (06:32→18:38)
[2020-01-16] MEDS: FUROSEMIDE 40 MG/4 ML INJ (LASIX) IV SCH (06:39)
--- NOTE | 2020-01-16 07:48 | Diagnostic Imaging Report ---
EXAMINATION: Chest 1 view HISTORY: Heart failure COMPARISON: 01/15/2020 FINDINGS: Heart is enlarged, but unchanged. There are likely small layering pleural effusions, right greater than left. There is stable mild to moderate pulmonary edema. IMPRESSION: 1. Stable [id number] pulmonary edema and likely small layering pleural effusions, right greater than left. Dictated by: Dictated on workstation # [id number]
--- NOTE | 2020-01-16 08:15 | Progress Note - Hospitalist ---
Subjective HPI/CC On Admission Date Seen by Provider: January 16, 2020 Time Seen by Provider: 11:00 Subjective/Events-last exam Patient improved overall Still on Vapotherm Lasix held due to prep for cath on Saturday Patient asking if she can go home soon but she doesn't seem to understand she is requiring a large amount of O2 to maintained sats No BM yet but just started eating yesterday Very complex medical issues Review of Systems General: Fatigue Pulmonary: Dyspnea Objective Exam Vital Signs Vital Signs Date Time Temp Pulse Resp B/P (MAP) Pulse Ox O2 Delivery O2 Flow Rate FiO2 01/16/20 14:28 91 Vapotherm 40.00 45 01/16/20 11:47 36.6 01/16/20 07:19 93 01/16/20 06:00 26 127/77 (94) Capillary Refill : Less Than 3 Seconds General Appearance: No Apparent Distress, WD/WN, Anxious, Chronically ill, Obese Respiratory: No Accessory Muscle Use, No Respiratory Distress, Crackles, Decreased Breath Sounds Results/Procedures Lab Laboratory Tests 01/16/20 03:00 Patient resulted labs reviewed. Assessment/Plan Assessment and Plan Assess & Plan/Chief Complaint Assessment: AECHF Hypoxia requiring Vapotherm PNA AECOPD CAD needs cath Saturday Volume overload Plan: Lasix but minimize for renal function protection Cath on Saturday? Vapotherm Very severe issues Diagnosis/Problems Diagnosis/Problems (1) Respiratory failure with hypoxia and hypercapnia Status: Acute Qualifiers: Chronicity: acute on chronic Qualified Codes: J96.21 - Acute and chronic respiratory failure with hypoxia; J96.22 - Acute and chronic respiratory failure with hypercapnia (2) Acute heart failure Status: Acute Qualifiers: Heart failure type: unspecified Qualified Codes: I50.9 - Heart failure, unspecified (3) Elevated troponin Status: Acute (4) DVT prophylaxis Status: Acute Clinical Quality Measures DVT/VTE Risk/Contraindication: Risk Factor Score Per Nursin RFS Level Per Nursing on Admit: 4+=Very High CHAPITO MILLER DO January 16, 2020 08:15
[2020-01-16] MEDS: lisINopril 5 MG (PRINIVIL) TABLET PO SCH (08:30)
[2020-01-16] MEDS: acetaZOLAMIDE INJ 500 MG (DIAMOX) VIAL IV SCH ×2 (08:30→15:51)
[2020-01-16] MEDS: ENOXAPARIN 40 MG/0.4 ML (LOVENOX) SYR SQ SCH (11:10)
--- NOTE | 2020-01-16 11:17 | Cardiology Progress Note ---
Subjective Date Seen by Provider: January 16, 2020 Time Seen by Provider: 11:14 Subjective/Events-last exam Patient is sitting in bed, feeling better, still having some crepitation rales and mild dyspnea on Vapotherm Review of Systems General: No Chills, No Night Sweats; Fatigue; No Malaise, No Appetite, No Other HEENT: No Head Aches, No Visual Changes, No Eye Pain, No Ear Pain, No Dysphasia, No Sinus Congestion, No Post Nasal Drip, No Sore Throat, No Other Pulmonary: Dyspnea, Cough; No Pleuritic Chest Pain, No Other Cardiovascular: No: Chest Pain, Palpitations, Orthopnea, Paroxysmal Noc. Dyspnea, Edema, Lt Headedness, Other Objective-Cardiology Exam Last Set of Vital Signs Vital Signs 01/16/20 01/16/20 01/16/20 04:06 06:00 10:22 Temp 37.2 Pulse 96 Resp 26 B/P (MAP) 127/77 (94) Pulse Ox 91 O2 Delivery Vapotherm O2 Flow Rate 40.00 FiO2 45 Capillary Refill : Less Than 3 Seconds I&O Intake and Output 01/16/20 00:00 Intake Total 1620 ml Output Total 430 ml Balance 1190 ml Intake Oral 1380 ml IV Total 240 ml Output Urine Total 430 ml # Voids 8 General: Alert, Oriented X3, Cooperative, No Acute Distress HEENT: Atraumatic, PERRLA Neck: Supple, No JVD, No Thyromegaly Lungs: Other (ronchi throughout) Heart: Regular Rate, Normal S1, Normal S2 Abdomen: Normal Bowel Sounds, Soft Extremities: No Clubbing, No Cyanosis, No Edema, Normal Pulses, No Tenderness/Swelling Skin: No Rashes, No Breakdown, No Significant Lesion Neuro: Normal Speech Psych/Mental Status: Mood NL Results Lab Laboratory Tests 01/16/20 03:00 A/P-Cardiology Admission Diagnosis Acute respiratory failure Congestive heart failure, acute left ventricular diastolic dysfunction, questionable ischemic Coronary artery disease Type 2 myocardial infarction Assessment/Plan Respiratory failure, multifactorial, better at this time, still having some rhonchi and rales. On Vapotherm. Acute exacerbation of COPD with hypercapnic respiratory failure. Managed by Dr. Bella Congestive heart failure, acute left ventricular diastolic dysfunction, responded to diuretics. Still having some shortness of breath. Continue with aggressive diuresis and monitor Questionable coronary artery disease, mild elevation in troponin, recommended cardiac catheterization which is scheduled for Saturday with Dr. Luo Severe pulmonary hypertension probably secondary to lung disease Moderate severe tricuspid regurgitation. Continue to monitor Hypertension, continue to monitor blood pressure Clinical Quality Measures DVT/VTE Risk/Contraindication: Risk Factor Score Per Nursin RFS Level Per Nursing on Admit: 4+=Very High KAREY POON MD January 16, 2020 11:17 am
[2020-01-17] VITALS (23 sets, daily range): BP systolic 98–170; BP diastolic 51–102
[2020-01-17] MEDS: acetaZOLAMIDE INJ 500 MG (DIAMOX) VIAL IV SCH (01:06)
[2020-01-17] MEDS: methylPREDNISolone 40 MG/ML (Solu-MEDROL) VIAL IV SCH ×4 (01:07→17:34)
[2020-01-17] MEDS: meTOprolol 5 MG/5 ML (LOPRESSOR) VIAL IV SCH ×2 (01:07→06:10)
[2020-01-17] MEDS: PIPERACILLIN/TAZOBACTAM (BULK) 4.5 GM in NS (IVPB) 100 ML IV SCH ×3 (01:08→16:27)
[2020-01-17] MEDS: RT-ALBUTEROL/IPRATROPIUM 3 ML (DUONEB) VIAL INH SCH ×5 (02:38→19:52)
[2020-01-17 04:09] LABS: BASOPHILS % (AUTO) 0 % (0-10); EOSINOPHILS % (AUTO) 0 % (0-10); HEMATOCRIT 42 % (35-52); LYMPHOCYTES # (AUTO) 0.3 X 10^3 (1.0-4.0); LYMPHOCYTES % (AUTO) 5 % (12-44); MEAN CORPUSCULAR HEMOGLOBIN 28 PG (25-34); MEAN CORPUSCULAR HGB CONC 29 G/DL (32-36); MEAN CORPUSCULAR VOLUME 97 FL (80-99); MEAN PLATELET VOLUME 10.8 FL (7.4-10.4); MONOCYTES # (AUTO) 0.3 X 10^3 (0.0-1.0); MONOCYTES % (AUTO) 5 % (0-12); NEUTROPHILS # (AUTO) 5.3 X 10^3 (1.8-7.8); NEUTROPHILS % (AUTO) 90 % (42-75); PLATELET COUNT 219 10^3/uL (130-400); RED CELL DISTRIBUTION WIDTH 16.7 % (10.0-14.5); WHITE BLOOD COUNT 5.9 10^3/uL (4.3-11.0)
[2020-01-17 04:14] LABS: POTASSIUM 3.6 MMOL/L (3.6-5.0)
[2020-01-17 04:16] LABS: CALCIUM 9.2 MG/DL (8.5-10.1)
[2020-01-17 04:20] LABS: CREATININE SERUM 1.19 MG/DL (0.60-1.30); PHOSPHORUS 4.8 MG/DL (2.3-4.7)
[2020-01-17 04:22] LABS: MAGNESIUM 2.4 MG/DL (1.6-2.4)
[2020-01-17] MEDS ORDERED: KCL 20 MEQ TAB (K-DUR) PO ONE ×2 (05:15→09:00)
--- NOTE | 2020-01-17 05:16 | Pulmonary Progress Note ---
Subjective Time Seen by a Provider: 05:10 Subjective/Events-last exam Pt is currently on BiPAP. Sepsis Event Evaluation Height, Weight, BMI Height: 5'0.00" Weight: 185lbs. oz. 83.602213vt; 34.00 BMI Method: Exam Exam Vital Signs Date Time Temp Pulse Resp B/P (MAP) Pulse Ox O2 Delivery O2 Flow Rate FiO2 01/17/20 04:00 82 121/70 (87) 97 Vapotherm 30.00 50.00 01/17/20 04:00 Vapotherm 30.00 50 01/17/20 03:00 81 112/64 (80) 97 Vapotherm 30.00 50.00 01/17/20 02:38 98 Vapotherm 40.00 55 01/17/20 02:00 62 98/62 (74) 95 Vapotherm 30.00 50.00 01/17/20 01:00 73 103/66 (78) 95 Vapotherm 30.00 50.00 01/17/20 01:00 77 01/17/20 00:00 Vapotherm 35.00 55 01/17/20 00:00 78 110/57 (74) 94 Vapotherm 30.00 50.00 01/16/20 23:00 73 103/59 (74) 95 Vapotherm 30.00 50.00 01/16/20 22:00 87 105/62 (76) 99 Vapotherm 30.00 50.00 01/16/20 21:46 95 Vapotherm 40.00 55 01/16/20 21:00 98 98/67 (77) 97 Vapotherm 30.00 50.00 01/16/20 20:40 Vapotherm 30.00 50.00 01/16/20 20:00 100 111/64 (80) 98 Vapotherm 35.00 55.00 01/16/20 20:00 Vapotherm 35.00 60 01/16/20 19:16 Vapotherm 35.00 55.00 01/16/20 19:00 102 01/16/20 19:00 119 121/73 (89) 98 Vapotherm 35.00 60.00 01/16/20 18:38 98 Vapotherm 40.00 65 01/16/20 18:00 94 24 121/99 (106) 99 Vapotherm 35.00 45.00 01/16/20 17:00 99 18 130/106 (114) 100 Vapotherm 35.00 45.00 01/16/20 16:26 Vapotherm 65.00 40.00 01/16/20 16:03 98 NIV Bilevel 60 01/16/20 16:00 88 37 99 Vapotherm 35.00 45.00 01/16/20 15:00 87 42 92 Vapotherm 35.00 45.00 01/16/20 14:28 91 Vapotherm 40.00 45 01/16/20 14:00 105 15 172/95 (120) 83 Vapotherm 35.00 45.00 01/16/20 13:26 101 01/16/20 13:00 100 32 115/66 (82) 96 Vapotherm 35.00 45.00 01/16/20 12:30 93 NIV Bilevel 45 01/16/20 12:00 97 22 111/108 (109) 94 Vapotherm 35.00 45.00 01/16/20 11:47 36.6 01/16/20 11:00 111 22 104/58 (73) 96 Vapotherm 35.00 45.00 01/16/20 10:22 91 Vapotherm 40.00 45 01/16/20 10:00 84 30 108/58 (75) 90 Vapotherm 35.00 45.00 01/16/20 09:00 86 41 107/49 (68) 89 Vapotherm 35.00 45.00 01/16/20 08:15 93 NIV Bilevel 45 01/16/20 08:00 92 21 127/77 (94) 94 Vapotherm 35.00 45.00 01/16/20 07:19 93 01/16/20 07:00 75 19 130/75 (93) 90 Vapotherm 35.00 45.00 01/16/20 06:41 Vapotherm 35.00 45.00 01/16/20 06:37 89 Vapotherm 30.00 40 01/16/20 06:36 89 Vapotherm 30.00 40 01/16/20 06:00 Vapotherm 30.00 40.00 01/16/20 06:00 96 26 127/77 (94) 90 Vapotherm 30.00 40.00 I & O 01/17/20 07:00 Intake Total 1020 ml Output Total 1750 ml Balance -730 ml Height & Weight Height: 5'0.00" Weight: 185lbs. oz. 83.500780tr; 34.00 BMI Method: General Appearance: No Apparent Distress, WD/WN, Anxious, Chronically ill, O bese HEENT: PERRL/EOMI, Pharynx Normal Neck: Non Tender, Supple Respiratory: No Accessory Muscle Use, No Respiratory Distress, Crackles, Decreased Breath Sounds Cardiovascular: No Murmur, Tachycardia Capillary Refill: Less Than 3 Seconds Gastrointestinal: normal bowel sounds, non tender, other (mild distension) Extremity: Normal Range of Motion, Non Tender, No Calf Tenderness, Pedal Edema (2+ upto knees bilateral) Neurologic/Psychiatric: Alert, Oriented x3 Skin: Normal Color, Warm/Dry Lymphatic: No Adenopathy Results Lab Laboratory Tests 01/16/20 03:00 01/17/20 03:30 Assessment/Plan Assessment/Plan Acute on chronic respiratory failure -Pt has improved with BiPAP -BiPAP QHS. Vapotherm during the day -- Titrate oxygen down -Plan for heart cath Saturday -Duoneb Q 4 add Pulmicort -solumedrol 40 IV Q 6 -CTA of chest -reviewed No PE Contraction alkalosis - secondary to Lasix -Diamox s/p 3 doses -Echo shows EF of 55-65% with grade 1 diastolic dysfunction. -Plan is for heart cath on Saturday. COPDAE -Pt uses 2-3 liters of oxygen at home over the last 3yrs. - Continue Solumedrol and Duoneb Q 4 -Encourage BiPAP NSTEMI -Cardiology following CHF - Diastolic grade 1 - per echo -Monitor Hx of tobacco use -Out pt PFT Morbid obesity with probable SUSANNAH -Out pt testing ELLIE RIGGS DO January 17, 2020 05:16
[2020-01-17] MEDS: MAGNESIUM 1 GM/100 ML IVPB 100 ML IV SCH (05:43)
[2020-01-17] MEDS: KCL 20 MEQ TAB (K-DUR) PO SCH (05:43)
[2020-01-17] MEDS: POTASSIUM CL 10MEQ/50ML IVPB 50 ML IV SCH (05:43)
[2020-01-17] MEDS: RT-BUDESONIDE NEBS 0.5 MG/2ML (PULMICORT) AMP INH SCH ×2 (06:32→19:52)
--- NOTE | 2020-01-17 08:22 | Progress Note - Hospitalist ---
Subjective HPI/CC On Admission Date Seen by Provider: January 17, 2020 Time Seen by Provider: 08:30 Subjective/Events-last exam Patient doing a bit better Vapotherm maintained Still asking constantly if she can go home tomorrow I explained again she is requiring a lot of O2 more than her home level and that must be titrated down before she can go home No pain reported Eating ok Review of Systems Pulmonary: Dyspnea Objective Exam Vital Signs Vital Signs Date Time Temp Pulse Resp B/P (MAP) Pulse Ox O2 Delivery O2 Flow Rate FiO2 01/17/20 14:00 90 Vapotherm 30.00 40 01/17/20 13:00 79 138/69 (92) 01/17/20 12:00 36.2 01/16/20 18:00 24 Capillary Refill : Less Than 3 Seconds General Appearance: No Apparent Distress, WD/WN, Anxious, Chronically ill Respiratory: Chest Non Tender, No Accessory Muscle Use, No Respiratory Distress, Decreased Breath Sounds Cardiovascular: Regular Rate, Rhythm, No Edema, No Gallop, No JVD, No Murmur, Normal Peripheral Pulses Neurologic/Psychiatric: Alert, Oriented x3, No Motor/Sensory Deficits, Normal Mood/Affect Results/Procedures Lab Laboratory Tests 01/17/20 03:30 Patient resulted labs reviewed. Assessment/Plan Assessment and Plan Assess & Plan/Chief Complaint Assessment: AECHF Hypoxia requiring Vapotherm PNA AECOPD CAD needs cath Saturday Volume overload Plan: Lasix but minimize for renal function protection Cath on Saturday? Vapotherm Very severe issues Diagnosis/Problems Diagnosis/Problems (1) Respiratory failure with hypoxia and hypercapnia Status: Acute Qualifiers: Chronicity: acute on chronic Qualified Codes: J96.21 - Acute and chronic respiratory failure with hypoxia; J96.22 - Acute and chronic respiratory failure with hypercapnia (2) Acute heart failure Status: Acute Qualifiers: Heart failure type: unspecified Qualified Codes: I50.9 - Heart failure, unspecified (3) Elevated troponin Status: Acute (4) DVT prophylaxis Status: Acute Clinical Quality Measures DVT/VTE Risk/Contraindication: Risk Factor Score Per Nursin RFS Level Per Nursing on Admit: 4+=Very High CHAPITO MILLER DO January 17, 2020 08:22
[2020-01-17] MEDS: lisINopril 5 MG (PRINIVIL) TABLET PO SCH (08:42)
[2020-01-17] MEDS: PANTOPRAZOLE 40 MG (PROTONIX) VIAL IV SCH (08:42)
--- NOTE | 2020-01-17 08:46 | Diagnostic Imaging Report ---
INDICATION: Acute heart failure. TECHNIQUE: Single view chest 2:25 AM. CORRELATION STUDY: 01/16/2020 FINDINGS: Unchanged severity cardiac enlargement. Pulmonary vascular congestion and perihilar edema slightly increased. Areas of parenchymal density at the lung bases may reflect edema versus infiltrate. IMPRESSION: 1. Increasing severity of a pulmonary edema and congestion. Dictated by: Dictated on workstation # [id number]
[2020-01-17] MEDS: ENOXAPARIN 40 MG/0.4 ML (LOVENOX) SYR SQ SCH (09:59)
--- NOTE | 2020-01-17 10:55 | Cardiology Progress Note ---
Subjective Date Seen by Provider: January 17, 2020 Time Seen by Provider: 10:52 Subjective/Events-last exam Patient is sitting in a chair, feeling better. Review of Systems General: No Chills, No Night Sweats, No Fatigue, No Malaise, No Appetite, No Other HEENT: No Head Aches, No Visual Changes, No Eye Pain, No Ear Pain, No Dysphasia, No Sinus Congestion, No Post Nasal Drip, No Sore Throat, No Other Pulmonary: Dyspnea; No Cough, No Pleuritic Chest Pain, No Other Cardiovascular: No: Chest Pain, Palpitations, Orthopnea, Paroxysmal Noc. Dyspnea, Edema, Lt Headedness, Other Objective-Cardiology Exam Last Set of Vital Signs Vital Signs 01/16/20 01/17/20 01/17/20 01/17/20 18:00 08:00 09:00 10:01 Temp 36.4 Pulse 88 Resp 24 B/P (MAP) 141/79 (99) Pulse Ox 91 O2 Delivery Vapotherm O2 Flow Rate 30.00 40.00 FiO2 40 Capillary Refill : Less Than 3 Seconds I&O Intake and Output 01/17/20 00:00 Intake Total 1540 ml Output Total 2050 ml Balance -510 ml Intake Oral 1420 ml IV Total 120 ml Output Urine Total 2050 ml # Voids 1 General: Alert, Oriented X3, Cooperative, No Acute Distress HEENT: Atraumatic, PERRLA Neck: Supple, No JVD, No Thyromegaly Lungs: Other (Bilateral rhonchi and wheezing) Heart: Regular Rate, Normal S1, Normal S2 Abdomen: Normal Bowel Sounds, Soft Extremities: No Clubbing, No Cyanosis, No Edema, Normal Pulses, No Tenderness/Swelling Skin: No Rashes, No Breakdown, No Significant Lesion Neuro: Normal Speech Psych/Mental Status: Mood NL Results Lab Laboratory Tests 01/17/20 03:30 A/P-Cardiology Admission Diagnosis Acute respiratory failure Congestive heart failure, acute left ventricular diastolic dysfunction, ques tionable ischemic Coronary artery disease Type 2 myocardial infarction Assessment/Plan Status post acute respiratory failure, improving slowly, still on Vapotherm, managed by Dr. Bella Acute exacerbation of COPD with hypercapnic respiratory failure. Managed by Dr. Bella Congestive heart failure, acute left ventricular diastolic dysfunction, responded to diuretics. Still having some shortness of breath. Continue with aggressive diuresis and monitor Questionable coronary artery disease, mild elevation in troponin, recommended cardiac catheterization which is scheduled for Saturday with Dr. Luo Severe pulmonary hypertension probably secondary to lung disease Moderate severe tricuspid regurgitation. Continue to monitor Hypertension, continue to monitor blood pressure Clinical Quality Measures DVT/VTE Risk/Contraindication: Risk Factor Score Per Nursin RFS Level Per Nursing on Admit: 4+=Very High KAREY POON MD January 17, 2020 10:54
[2020-01-18] VITALS (25 sets, daily range): BP systolic 96–152; BP diastolic 55–97
[2020-01-18] MEDS: RT-ALBUTEROL/IPRATROPIUM 3 ML (DUONEB) VIAL INH SCH ×7 (00:03→21:30)
[2020-01-18] MEDS: methylPREDNISolone 40 MG/ML (Solu-MEDROL) VIAL IV SCH ×4 (00:21→18:16)
[2020-01-18] MEDS: PIPERACILLIN/TAZOBACTAM (BULK) 4.5 GM in NS (IVPB) 100 ML IV SCH ×3 (00:21→15:58)
[2020-01-18 03:36] LABS: BASOPHILS % (AUTO) 0 % (0-10); EOSINOPHILS % (AUTO) 0 % (0-10); HEMATOCRIT 41 % (35-52); HEMOGLOBIN 12.1 G/DL (11.5-16.0); LYMPHOCYTES # (AUTO) 0.3 X 10^3 (1.0-4.0); LYMPHOCYTES % (AUTO) 6 % (12-44); MEAN CORPUSCULAR HEMOGLOBIN 28 PG (25-34); MEAN CORPUSCULAR HGB CONC 30 G/DL (32-36); MEAN CORPUSCULAR VOLUME 94 FL (80-99); MEAN PLATELET VOLUME 11.3 FL (7.4-10.4); MONOCYTES # (AUTO) 0.4 X 10^3 (0.0-1.0); MONOCYTES % (AUTO) 7 % (0-12); NEUTROPHILS % (AUTO) 88 % (42-75); PLATELET COUNT 200 10^3/uL (130-400); RED CELL DISTRIBUTION WIDTH 16.5 % (10.0-14.5); WHITE BLOOD COUNT 5.7 10^3/uL (4.3-11.0)
[2020-01-18 03:45] LABS: POTASSIUM 3.8 MMOL/L (3.6-5.0)
[2020-01-18 03:46] LABS: CALCIUM 9.1 MG/DL (8.5-10.1)
[2020-01-18 03:51] LABS: CREATININE SERUM 1.16 MG/DL (0.60-1.30); PHOSPHORUS 3.9 MG/DL (2.3-4.7)
[2020-01-18 03:53] LABS: MAGNESIUM 2.4 MG/DL (1.6-2.4)
[2020-01-18] MEDS: POTASSIUM CL 10MEQ/50ML IVPB 50 ML IV SCH (04:07)
[2020-01-18] MEDS: MAGNESIUM 1 GM/100 ML IVPB 100 ML IV SCH (04:07)
[2020-01-18] MEDS: KCL 20 MEQ TAB (K-DUR) PO SCH (04:08)
[2020-01-18] MEDS: inSUlin ASPART (NovoLOG) 1 UNIT/0.01 ML (CHARGE PER UNIT) SC SCH ×4 (05:32→21:24)
--- NOTE | 2020-01-18 06:32 | Pulmonary Progress Note ---
Subjective Time Seen by a Provider: 06:29 Subjective/Events-last exam Pt appears to be improving. Sepsis Event Evaluation Height, Weight, BMI Height: 5'0.00" Weight: 185lbs. oz. 83.603584ca; 34.00 BMI Method: Exam Exam Vital Signs Date Time Temp Pulse Resp B/P (MAP) Pulse Ox O2 Delivery O2 Flow Rate FiO2 01/18/20 06:00 71 128/72 (90) 93 NIV Bilevel 40.00 01/18/20 05:00 70 113/59 (77) 90 NIV Bilevel 40.00 01/18/20 04:00 75 141/71 (94) 94 NIV Bilevel 40.00 01/18/20 03:10 75 16 96 40.00 01/18/20 03:05 91 NIV Bilevel 40 01/18/20 03:00 83 136/94 (108) 96 NIV Bilevel 40.00 01/18/20 02:50 36.5 78 18 90 NIV Bilevel 40.00 01/18/20 02:00 81 122/67 (85) 88 NIV Bilevel 40.00 01/18/20 01:00 79 01/18/20 01:00 79 122/69 (86) 93 NIV Bilevel 40.00 01/18/20 00:20 97 NIV Bilevel 40 01/18/20 00:20 36.7 NIV Bilevel 40.00 01/18/20 00:06 78 96 NIV Bilevel 40.00 01/18/20 00:03 74 16 96 40.00 01/18/20 00:00 72 146/85 (105) 96 Vapotherm 30.00 40.00 01/17/20 23:00 80 144/81 (102) 95 Vapotherm 30.00 40.00 01/17/20 22:00 90 157/83 (107) 94 Vapotherm 30.00 40.00 01/17/20 21:05 96 170/83 (112) Vapotherm 30.00 40.00 01/17/20 21:00 95 155/102 (119) 95 Vapotherm 30.00 40.00 01/17/20 20:00 37.0 01/17/20 20:00 82 150/80 (103) 92 Vapotherm 30.00 40.00 01/17/20 19:53 94 Vapotherm 30.00 40 01/17/20 19:20 93 Vapotherm 30.00 45 01/17/20 19:15 Vapotherm 30.00 40.00 01/17/20 19:00 87 01/17/20 19:00 87 144/82 (102) 96 Vapotherm 30.00 40.00 01/17/20 18:00 90 129/92 (104) Vapotherm 30.00 40.00 01/17/20 17:00 105 148/92 (110) Vapotherm 30.00 40.00 01/17/20 16:34 Vapotherm 30.00 45 01/17/20 16:00 36.3 01/17/20 16:00 90 112/71 (85) 95 Vapotherm 30.00 40.00 01/17/20 15:00 65 136/70 (92) 91 Vapotherm 30.00 40.00 01/17/20 14:00 66 127/62 (83) 91 Vapotherm 30.00 40.00 01/17/20 14:00 90 Vapotherm 30.00 40 01/17/20 13:00 79 138/69 (92) 95 Vapotherm 30.00 40.00 01/17/20 12:30 85 01/17/20 12:30 Vapotherm 30.00 45 01/17/20 12:00 85 96 Vapotherm 30.00 40.00 01/17/20 12:00 36.2 01/17/20 11:00 81 139/81 (100) 91 Vapotherm 30.00 40.00 01/17/20 10:01 Vapotherm 30.00 40.00 01/17/20 10:01 91 Vapotherm 30.00 40 01/17/20 09:00 88 141/79 (99) 94 Vapotherm 30.00 50.00 01/17/20 08:07 Vapotherm 30.00 45 01/17/20 08:00 95 105/56 (72) 95 Vapotherm 30.00 50.00 01/17/20 08:00 36.4 01/17/20 07:00 84 01/17/20 07:00 95 105/56 (72) 95 Vapotherm 30.00 50.00 01/17/20 06:33 93 Vapotherm 30.00 45 I & O 01/18/20 07:00 Intake Total 1490 ml Output Total 450 ml Balance 1040 ml Height & Weight Height: 5'0.00" Weight: 185lbs. oz. 83.896581cg; 34.00 BMI Method: General Appearance: No Apparent Distress, WD/WN, Anxious, Chronically ill HEENT: PERRL/EOMI, Pharynx Normal Neck: Non Tender, Supple Respiratory: Chest Non Tender, No Accessory Muscle Use, No Respiratory Distress, Decreased Breath Sounds Cardiovascular: Regular Rate, Rhythm, No Edema, No Gallop, No JVD, No Murmur, Normal Peripheral Pulses Capillary Refill: Less Than 3 Seconds Gastrointestinal: normal bowel sounds, non tender, other (mild distension) Extremity: Normal Range of Motion, Non Tender, No Calf Tenderness, Pedal Edema (2+ upto knees bilateral) Neurologic/Psychiatric: Alert, Oriented x3, No Motor/Sensory Deficits, Normal Mood/Affect Skin: Normal Color, Warm/Dry Lymphatic: No Adenopathy Results Lab Laboratory Tests 01/17/20 03:30 01/18/20 03:01 Assessment/Plan Assessment/Plan Acute on chronic respiratory failure - Improving oxygen requirements -Pt has improved with BiPAP -BiPAP QHS. Vapotherm during the day -- Titrate oxygen down -Plan for heart cath Saturday -Duoneb Q 4 add Pulmicort -solumedrol 40 IV Q 6 -CTA of chest -reviewed No PE Contraction alkalosis - Improving -Echo shows EF of 55-65% with grade 1 diastolic dysfunction. -Plan is for heart cath today COP[facility]E -Pt uses 2-3 liters of oxygen at home over the last 3yrs. - Continue Solumedrol and Duoneb Q 4 -Encourage BiPAP NSTEMI -Cardiology following CHF - Diastolic grade 1 - per echo -Monitor Hx of tobacco use -Out pt PFT Morbid obesity with probable SUSANNAH -Out pt testing ELLIE RIGGS DO Jan 18, 2020 06:32
--- NOTE | 2020-01-18 06:41 | Progress Note - Hospitalist ---
Subjective HPI/CC On Admission Date Seen by Provider: Jan 18, 2020 Time Seen by Provider: 09:30 Subjective/Events-last exam Cardiac cath today Significant other at the bedside today Vapotherm during the day and biPAP at night I told her she needs to be weaned off O2 after her cardiac cath even to be remotely ready for DC She wears O2 at 4 liters per minute at home Overall appears to be in very serious declined health Review of Systems Pulmonary: Dyspnea Objective Exam Vital Signs Vital Signs Date Time Temp Pulse Resp B/P (MAP) Pulse Ox O2 Delivery O2 Flow Rate FiO2 01/18/20 19:20 95 Nasal Cannula 4.00 01/18/20 19:15 36.5 97 20 127/68 (87) 01/18/20 10:14 40 Capillary Refill : Less Than 3 Seconds General Appearance: No Apparent Distress, WD/WN, Anxious, Chronically ill, Obese Respiratory: No Accessory Muscle Use, No Respiratory Distress, Decreased Breath Sounds Cardiovascular: Regular Rate, Rhythm Neurologic/Psychiatric: Alert, Oriented x3, No Motor/Sensory Deficits, Normal Mood/Affect Results/Procedures Lab Laboratory Tests 01/18/20 03:01 Patient resulted labs reviewed. Assessment/Plan Assessment and Plan Assess & Plan/Chief Complaint Assessment: AECHF Hypoxia requiring Vapotherm PNA AECOPD CAD needs cath today Volume overload Plan: Lasix but minimize for renal function protection Cath Vapotherm Very severe issues May need PT OT or IRF? Diagnosis/Problems Diagnosis/Problems (1) Respiratory failure with hypoxia and hypercapnia Status: Acute Qualifiers: Chronicity: acute on chronic Qualified Codes: J96.21 - Acute and chronic respiratory failure with hypoxia; J96.22 - Acute and chronic respiratory failure with hypercapnia (2) Acute heart failure Status: Acute Qualifiers: Heart failure type: unspecified Qualified Codes: I50.9 - Heart failure, unspecified (3) Elevated troponin Status: Acute (4) DVT prophylaxis Status: Acute Clinical Quality Measures DVT/VTE Risk/Contraindication: Risk Factor Score Per Nursin RFS Level Per Nursing on Admit: 4+=Very High CHAPITO MILLER DO Jan 18, 2020 06:40
[2020-01-18] MEDS: RT-BUDESONIDE NEBS 0.5 MG/2ML (PULMICORT) AMP INH SCH ×2 (06:57→18:06)
[2020-01-18] MEDS: lisINopril 5 MG (PRINIVIL) TABLET PO SCH (07:41)
[2020-01-18] MEDS: PANTOPRAZOLE 40 MG (PROTONIX) VIAL IV SCH (07:41)
[2020-01-18] MEDS ORDERED: LIDOCAINE 1% INJ 20 ML 20 ML VIAL ONE ×3 (08:00→13:41)
[2020-01-18] MEDS ORDERED: NS IV 1000 ML 1,000 ML ONE ×2 (08:00→10:50)
[2020-01-18] MEDS ORDERED: HEParin (CATH LAB) 0 ML IV ONE (08:00)
[2020-01-18] MEDS ORDERED: fentaNYL INJECTION 100 MCG/2 ML AMP ONE ×2 (08:15→13:40)
[2020-01-18] MEDS ORDERED: MIDAZOLAM 5 MG/5 ML (VERSED) VIAL ONE ×2 (08:15→13:40)
--- NOTE | 2020-01-18 08:23 | Diagnostic Imaging Report ---
Portable erect AP chest at 340 hours. INDICATION: Heart failure. FINDINGS: The cardiomegaly and mild pulmonary edema seen on the prior exam of 01/17/2020 are again evident and not significantly changed. However, both lung bases do seem better aerated than on the prior exam. There are still residual alveolar/interstitial pulmonary infiltrates involving each lower lobe, however. The mediastinum is not widened. The osseous structures are intact. IMPRESSION: The appearance of the chest has improved as both lung bases do seem better aerated. A follow-up study would be recommended for continued evaluation. Dictated by: Dictated on workstation # [id number]
[2020-01-18] MEDS: ENOXAPARIN 40 MG/0.4 ML (LOVENOX) SYR SQ SCH (08:35)
[2020-01-18] MEDS ORDERED: HEParin (CATH LAB) 2,000 ML IV ONE ×2 (10:50→13:42)
[2020-01-18] MEDS ORDERED: NS IV 1000 ML 1,000 ML IV SCH (14:30)
--- NOTE | 2020-01-18 14:56 | Cardiac Procedure Note-CS/ASA ---
Pre-Procedure Note Pre-Op Procedure Note H&P Reviewed The H&P was reviewed, patient examined and no changes noted. Date H&P Reviewed: Jan 18, 2020 Time H&P Reviewed: 13:00 Conscious Sedation Pre-Proced Time 13:00 ASA Score 3 For ASA 3 and 4: Consider anesthesia and medical clearance. Also, for patients with a history of failed moderate sedation consider anesthesia. Airway Lungs Heart ASA score ASA 1: a normal healthy patient ASA 2: a patient with a mild systemic disease (mid diabetes, controlled hypertension, obesity ASA 3: a patient with a severe systemic disease that limits activity (angina, COPD, prior Myocardial infarction) ASA 4: a patient with an incapacitating disease that is a constant threat to life (CHF, renal failure) ASA 5: a moribund patient not expected to survive 24 hrs. (ruptured aneurysm) ASA 6: a declared brain- patient whose organs are being harvested. For emergent operations, add the letter E after the classification Mallampati Classification Grade 1 Sedation Plan Analgesia, Amnesia, Plan communicated to team members, Discussed options with patient/fam, Discussed risks with patient/fam The patient is an appropriate candidate to undergo the planned procedure, sedation, and anesthesia. The patient immediately re-assessed prior to indication. eCci LEE MD Jan 18, 2020 14:56
[2020-01-18] MEDS: NS IV 1000 ML 1,000 ML IV SCH (14:57)
--- NOTE | 2020-01-18 14:57 | Coronary Angiography Report ---
Coronary Angiography Report DATE OF PROCEDURE: 01/18/20 INDICATION: Acute respiratory failure, Acute diastolic congestive heart failure, positive cardiac enzymes. PREOPERATIVE DIAGNOSIS: Acute respiratory failure, Acute diastolic congestive heart failure, positive cardiac enzymes. POSTOPERATIVE DIAGNOSIS: Mild CAD. HISTORY: This is a 69-year-old lady with history of active smoking who presented with respiratory distress. Positive cardiac enzymes. Therefore, the patient w as scheduled for coronary angiography. PROCEDURES PERFORMED: 1.Coronary angiography. 2.Left heart catheterization. COMPLICATIONS: None. SPECIMENS: None. ESTIMATED BLOOD LOSS: 10 mL ANESTHESIA: Conscious sedation ANTICOAGULATION: None. CONTRAST: 39 mL. FLUOROSCOPY: 1.46 minutes. FLOUROSCOPY DOSE: 513 mgy. PROCEDURE DETAILS: The patient is a 69 female and was brought to the laboratory geneticist after informed consent was taken. All the risks and complications were explained in detail; this included the risk of bleeding, vascular damage, stroke, UT and even . The patient was draped and prepped in the usual sterile fashion. Darrius's test was abnormal therefore Access was gained in the right femoral artery with a 5 [place] sheath.. Coronary angiography and left heart catheterization was performed with JL4 and JR4 catheter. FINDINGS: 1.Left main: Patent. 2.LAD: Mild mid disease with bridging. 3.Left circumflex artery: Luminal irregularities. 4.RCA: Luminal irregularities. 5.Left heart catheterization: LV pressure 105/15 mmHg. LVEDP 24 mmHg. Aortic pressure 99/62 mmHg. Normal LV function with no wall motion abnormalities. No gradient across the aortic valve. CONCLUSIONS: Mild CAD with LAD bridging. Positive troponin likely due to type II myocardial infarction due to acute respiratory failure. Continue secondary prevention measures. Elevated LVEDP suggest diastolic dysfunction. Stanton Luo MD, FACP, FACC, [facility] Interventional Cardiology Ceci LUO MD Jan 18, 2020 14:57
[2020-01-18] MEDS ORDERED: PATIENT MAY USE OWN MEDS, ALL PO SCH (15:00)
[2020-01-19] VITALS (15 sets, daily range): BP systolic 97–156; BP diastolic 54–92
[2020-01-19] MEDS: PIPERACILLIN/TAZOBACTAM (BULK) 4.5 GM in NS (IVPB) 100 ML IV SCH (00:05)
[2020-01-19] MEDS: methylPREDNISolone 40 MG/ML (Solu-MEDROL) VIAL IV SCH ×4 (00:05→17:09)
[2020-01-19] MEDS: NS IV 1000 ML 1,000 ML IV SCH (01:04)
[2020-01-19] MEDS: RT-ALBUTEROL/IPRATROPIUM 3 ML (DUONEB) VIAL INH SCH ×6 (01:49→21:10)
[2020-01-19 03:15] LABS: BASOPHILS % (AUTO) 0 % (0-10); EOSINOPHILS % (AUTO) 0 % (0-10); HEMATOCRIT 41 % (35-52); HEMOGLOBIN 12.2 G/DL (11.5-16.0); LYMPHOCYTES # (AUTO) 0.3 X 10^3 (1.0-4.0); LYMPHOCYTES % (AUTO) 5 % (12-44); MEAN CORPUSCULAR HEMOGLOBIN 28 PG (25-34); MEAN CORPUSCULAR HGB CONC 30 G/DL (32-36); MEAN CORPUSCULAR VOLUME 93 FL (80-99); MEAN PLATELET VOLUME 11.1 FL (7.4-10.4); MONOCYTES # (AUTO) 0.2 X 10^3 (0.0-1.0); MONOCYTES % (AUTO) 4 % (0-12); NEUTROPHILS # (AUTO) 5.1 X 10^3 (1.8-7.8); NEUTROPHILS % (AUTO) 91 % (42-75); PLATELET COUNT 197 10^3/uL (130-400); RED CELL DISTRIBUTION WIDTH 16.4 % (10.0-14.5); WHITE BLOOD COUNT 5.6 10^3/uL (4.3-11.0)
[2020-01-19 03:39] LABS: CALCIUM 8.9 MG/DL (8.5-10.1); CREATININE SERUM 1.13 MG/DL (0.60-1.30); MAGNESIUM 2.5 MG/DL (1.6-2.4); PHOSPHORUS 4.3 MG/DL (2.3-4.7); POTASSIUM 4.1 MMOL/L (3.6-5.0)
[2020-01-19] MEDS: MAGNESIUM 1 GM/100 ML IVPB 100 ML IV SCH (03:48)
[2020-01-19] MEDS: KCL 20 MEQ TAB (K-DUR) PO SCH (03:48)
[2020-01-19] MEDS: POTASSIUM CL 10MEQ/50ML IVPB 50 ML IV SCH (03:48)
[2020-01-19] MEDS: inSUlin ASPART (NovoLOG) 1 UNIT/0.01 ML (CHARGE PER UNIT) SC SCH ×4 (03:48→20:58)
--- NOTE | 2020-01-19 05:15 | Pulmonary Progress Note ---
Subjective Time Seen by a Provider: 05:13 Subjective/Events-last exam s/p cath. No complications noted. Sepsis Event Evaluation Height, Weight, BMI Height: 5'0.00" Weight: 185lbs. oz. 83.689125mn; 34.00 BMI Method: Exam Exam Vital Signs Date Time Temp Pulse Resp B/P (MAP) Pulse Ox O2 Delivery O2 Flow Rate FiO2 01/19/20 04:00 84 104/54 (71) 93 Nasal Cannula 4.00 01/19/20 03:51 85 94 Nasal Cannula 4.00 01/19/20 03:30 94 NIV Bilevel 40 01/19/20 03:00 86 97/73 (81) 96 NIV Bilevel 40.00 01/19/20 02:00 72 118/68 (85) 94 NIV Bilevel 40.00 01/19/20 01:50 68 16 94 40.00 01/19/20 01:00 63 113/61 (78) 93 NIV Bilevel 40.00 01/19/20 01:00 63 01/19/20 00:00 62 99/60 (73) 94 NIV Bilevel 40.00 01/18/20 23:22 78 95 NIV Bilevel 40.00 01/18/20 23:20 71 22 93 40.00 01/18/20 23:10 36.8 18 Nasal Cannula 4.00 01/18/20 23:10 96 Nasal Cannula 4.00 01/18/20 23:00 76 130/70 (90) 93 Nasal Cannula 4.00 01/18/20 22:00 85 123/72 (89) 94 Nasal Cannula 4.00 01/18/20 21:29 94 High Flow N/C 4.00 01/18/20 21:00 79 116/69 (85) 93 Nasal Cannula 4.00 01/18/20 20:00 87 136/86 (103) 94 Nasal Cannula 4.00 01/18/20 19:20 95 Nasal Cannula 4.00 01/18/20 19:15 36.5 97 20 127/68 (87) 95 Nasal Cannula 4.00 01/18/20 19:04 91 01/18/20 18:06 90 High Flow N/C 4.00 01/18/20 18:00 88 119/66 (83) 92 Nasal Cannula 4.00 01/18/20 17:00 93 110/62 (78) 90 Nasal Cannula 4.00 01/18/20 16:00 36.0 01/18/20 16:00 80 98/59 (72) 98 Nasal Cannula 4.00 01/18/20 15:39 97 Simple Mask 10.00 01/18/20 15:30 81 96/55 (69) 98 Nasal Cannula 4.00 01/18/20 15:15 81 96/55 (69) 98 Nasal Cannula 4.00 01/18/20 15:00 90 98/65 (76) 98 Nasal Cannula 4.00 01/18/20 13:24 95 High Flow N/C 4.00 01/18/20 13:00 79 01/18/20 13:00 74 149/79 (102) 96 Nasal Cannula 4.00 01/18/20 12:00 93 High Flow N/C 4.00 01/18/20 12:00 73 138/88 (105) 93 Nasal Cannula 4.00 01/18/20 11:00 68 144/84 (104) 92 Vapotherm 30.00 40.00 01/18/20 10:14 93 Vapotherm 30.00 40 01/18/20 10:00 72 152/88 (109) 95 Vapotherm 30.00 40.00 01/18/20 09:00 72 149/94 (112) 94 Vapotherm 30.00 40.00 01/18/20 08:00 88 146/85 (105) 96 Vapotherm 30.00 40.00 01/18/20 08:00 35.8 01/18/20 08:00 94 Vapotherm 40 01/18/20 07:00 150/97 (114) 93 Vapotherm 30.00 40.00 01/18/20 07:00 72 01/18/20 06:57 95 16 93 40.00 01/18/20 06:00 71 128/72 (90) 93 NIV Bilevel 40.00 I & O 01/19/20 07:00 Intake Total 1875 ml Balance 1875 ml Height & Weight Height: 5'0.00" Weight: 185lbs. oz. 83.243124ze; 34.00 BMI Method: General Appearance: No Apparent Distress, WD/WN, Anxious, Chronically ill, Obese HEENT: PERRL/EOMI, Pharynx Normal Neck: Non Tender, Supple Respiratory: No Accessory Muscle Use, No Respiratory Distress, Decreased Breath Sounds Cardiovascular: Regular Rate, Rhythm Capillary Refill: Less Than 3 Seconds Gastrointestinal: normal bowel sounds, non tender, other (mild distension) Extremity: Normal Range of Motion, Non Tender, No Calf Tenderness, Pedal Edema (2+ upto knees bilateral) Neurologic/Psychiatric: Alert, Oriented x3, No Motor/Sensory Deficits, Normal Mood/Affect Skin: Normal Color, Warm/Dry Lymphatic: No Adenopathy Results Lab Laboratory Tests 01/18/20 03:01 01/19/20 02:56 Assessment/Plan Assessment/Plan Acute on chronic respiratory failure - Improving oxygen requirements -Pt has improved with BiPAP -BiPAP QHS. Vapotherm during the day -- Titrate oxygen down -s/p cath - -Duoneb Q 4 add Pulmicort -solumedrol 40 IV Q 6 -CTA of chest -reviewed No PE Contraction alkalosis - Improving -Echo shows EF of 55-65% with grade 1 diastolic dysfunction. -Plan is for heart cath today [place] -Pt uses 2-3 liters of oxygen at home over the last 3yrs. - Continue Solumedrol and Duoneb Q 4 -Encourage BiPAP NSTEMI -Cardiology following CHF - Diastolic grade 1 - per echo -Monitor Hx of tobacco use -Out pt PFT Morbid obesity with probable SUSANNAH -Out pt testing ELLIE RIGGS DO Jan 19, 2020 05:15
[2020-01-19] MEDS: RT-BUDESONIDE NEBS 0.5 MG/2ML (PULMICORT) AMP INH SCH ×2 (06:57→18:17)
--- NOTE | 2020-01-19 08:02 | Diagnostic Imaging Report ---
Portable erect AP chest at 3:32. Indication: Acute heart failure. The cardiomegaly and the mild central pulmonary edema seen on the prior exam of 01/18/2020 are again evident and no different. There is also persistent involvement of both lung bases by atelectasis/infiltrate, particularly left lower lobe. These findings are similar to the prior exam as well. The mediastinum is not widened. The osseous structures are intact. Impression: Stable chest. There has been no adverse change since the prior exam. Dictated by: Dictated on workstation # [id number]
[2020-01-19] MEDS: PANTOPRAZOLE 40 MG (PROTONIX) VIAL IV SCH (08:58)
[2020-01-19] MEDS: lisINopril 5 MG (PRINIVIL) TABLET PO SCH (08:58)
[2020-01-19] MEDS: ENOXAPARIN 40 MG/0.4 ML (LOVENOX) SYR SQ SCH (08:58)
--- NOTE | 2020-01-19 09:29 | Occupational Therapy Eval ---
OT Evaluation-General/PLF Medical Diagnosis Admission Date January 12, 2020 at 19:56 Medical Diagnosis: SOB, pneumonia Onset Date: January 12, 2020 Therapy Diagnosis Therapy Diagnosis: Decr activity tolerance, decr self care Height/Weight Height (Feet): 5 Height (Inches): 0.00 Weight (Pounds): 185 Precautions Precautions/Isolations: Fall Prevention, Standard Precautions Referral Physician: Gareth Referral Reason: Evaluation/Treatment Medical History Pertinent Medical History: CAD, HTN, Smoking Additional Medical History Cardiac surgery. Chronic edema Current History Admitted with respiratory problems and SOB. Increased LE edema. On O2 at home since 2012, 4 L/min. Pneumonia, COPD. Reviewed History: Yes Social History Home: Apartment (Senior apt) Current Living Status: Alone ADL-Prior Level of Function SCALE: Activities may be completed with or without assistive devices. 3-Mksmymndsn-dtiuzcb completes the activity by him/herself with no assistance from a helper. 5-Set-up or Clean-up Assistance-helper sets up or cleans up; patient completes activity. [place] assists only prior to or following the activity. 4-Supervision or Touching Assistance-helper provides verbal cues and/or touching/steadying and/or contact guard assistance as patient completes activity. Assistance may be provided throughout the activity or intermittently. 3-Partial/Moderate Assistance-helper does LESS THAN HALF the effort. [place] lifts, holds or supports trunk or limbs, but provides less than half the effort. 2-Substantial/Maximal Assistance-helper does MORE THAN HALF the effort. [place] lifts or holds trunk or limbs and provides more than half the effort. 2-Ogqykbkxf-ajszzo does ALL the effort. Patient does none of the effort to complete the activity. Or, the assistance of 2 or more helpers is required for the patient to complete the activity. If activity was not attempted, code reason: 7-Patient Refused. 9-Not Applicable-not attempted and the patient did not perform the activity before the current illness, exacerbation or injury. 10-Not Attempted due to Environmental Limitations-(lack of equipment, weather restraints, etc.). 88-Not Attempted due to Medical Conditions or Safety Concerns. ADL PLOF Comments Pt reported that she was independent with self care and home care activities prior to admission. She is able to drive when she has a vehicle. She is a retired health care cook. Self Care: Independent Functional Cognition: Independent DME/Equipment: Grab Bars, Shower, Tall Toilet OT Current Status Subjective Pt seen in room, up in recliner, agreeable to OT. Pain reported 0/10 Appearance Alert, cooperative Mental Status/Objective Patient Orientation: Person, Place, Time, Situation Attachments: IV, Oxygen, Telemetry Current Upper Extremity ROM Grossly WFL bilat Upper Extremity Strength Grossly 5/5 bilat ADL-Treatment ADL-Current Pt reported that she has been able to manage toileting herself but needs help to disconnect tubing prior. She walks to the toilet without AD. She is able to feed herself. Wearing hospital gown. She reported that she has a little difficulty donning socks, even prior to admission, but usually wears slip-on shoes. She is interested in energy conservation techniques and seeing a sock aid demonstration. She walked outside of her room without AD, with PT earlier this am. Education OT Patient Education: Energy conservation, Purpose of tx/functional activities, Rehab process, Use of adapted equipment Teaching Recipient: Patient Teaching Methods: Discussion Response to Teaching: Verbalize Understanding OT Fpc Goals Adjunct Psychology Faculty Member Goals Time Frame: Jan 22, 2020 Energy conservation education - able to verbalize understanding and application Additional Goals: 1-Demonstrate ADL Tasks, 2-Verbalize Understanding 1=Demonstrate adherence to instructed precautions during ADL tasks. 2=Patient will verbalize/demonstrate understanding of assistive devices/modifications for ADL. 3=Patient will improve strength/tolerance for activity to enable patient to perform ADL's. OT Education/Plan Problem List/Assessment Assessment: Decreased Activ Tolerance, Impaired Self-Care Skills Pt would benefit from skilled OT to increase her independence in basic self care in order to return home safely. Discharge Recommendations Plan/Recommendations: Continue POC Treatment Plan/Plan of Care Treatment,Training & Education: Yes Patient would benefit from OT for education, treatment and training to promote independence in ADL's, mobility, safety and/or upper extremity function for ADL's. Plan of Care: ADL Retraining, Functional Mobility, OTHER (energy conservation education) Treatment Duration: Jan 22, 2020 Frequency: 5 times per week Estimated Hrs Per Day: .25 hour per day Agreement: Yes Rehab Potential: Good Time/GCodes Start Time: 09:00 Stop Time: 09:16 Total Time Billed (hr/min): 16 Billed Treatment Time visit, 16 minutes evaluation low intensity KLUSENER,SARIKA OT Jan 19, 2020 09:29
--- NOTE | 2020-01-19 10:22 | NUR ---
Report taken at this time from BECCA Torres (via phone) from ICU. This RN will assume care of this patient when she arrives to room 425-1.
--- NOTE | 2020-01-19 10:41 | Progress Note - Hospitalist ---
Subjective HPI/CC On Admission Date Seen by Provider: Jan 19, 2020 Time Seen by Provider: 09:30 Subjective/Events-last exam Cardiac cath performed, there was no intervention Moving to fourth floor Now on 4 L of oxygen high flow BiPAP at night PT and OT will be ordered Bowels are moving well Denies any new pain Review of Systems Pulmonary: Dyspnea Objective Exam Vital Signs Vital Signs Date Time Temp Pulse Resp B/P (MAP) Pulse Ox O2 Delivery O2 Flow Rate FiO2 01/19/20 20:16 36.2 90 18 138/73 (94) 94 Nasal Cannula 5.00 01/19/20 03:30 40 Capillary Refill : Less Than 3 Seconds General Appearance: No Apparent Distress, WD/WN, Chronically ill Respiratory: Chest Non Tender, Lungs Clear, No Accessory Muscle Use, No Respiratory Distress, Decreased Breath Sounds Cardiovascular: Regular Rate, Rhythm, No Edema, No Gallop, No JVD, No Murmur, Normal Peripheral Pulses Neurologic/Psychiatric: Alert, Oriented x3, No Motor/Sensory Deficits, Normal Mood/Affect Results/Procedures Lab Laboratory Tests 01/19/20 02:56 Patient resulted labs reviewed. Assessment/Plan Assessment and Plan Assess & Plan/Chief Complaint Assessment: AECHF Hypoxia requiring Vapotherm PNA AECOPD CAD needs cath today Volume overload Plan: Lasix but minimize for renal function protection Cath reviewed Vapotherm Very severe issues May need PT OT or IRF but seems to refuse Diagnosis/Problems Diagnosis/Problems (1) Respiratory failure with hypoxia and hypercapnia Status: Acute Qualifiers: Chronicity: acute on chronic Qualified Codes: J96.21 - Acute and chronic respiratory failure with hypoxia; J96.22 - Acute and chronic respiratory failure with hypercapnia (2) Acute heart failure Status: Acute Qualifiers: Heart failure type: unspecified Qualified Codes: I50.9 - Heart failure, unspecified (3) Elevated troponin Status: Acute (4) DVT prophylaxis Status: Acute Clinical Quality Measures DVT/VTE Risk/Contraindication: Risk Factor Score Per Nursin RFS Level Per Nursing on Admit: 4+=Very High CHAPITO MILLER DO Jan 19, 2020 10:41
--- NOTE | 2020-01-19 10:42 | NUR ---
Patient to floor at this time, sitting in recliner at this time. Patient currently using 4 liters HFNC.
--- NOTE | 2020-01-19 10:43 | Physical Therapy Evaluation ---
PT Evaluation-General Medical Diagnosis Admission Date January 12, 2020 at 19:56 Medical Diagnosis: SOB, pneumonia Onset Date: January 12, 2020 Therapy Diagnosis Therapy Diagnosis: debility Height/Weight Height (Feet): 5 Height (Inches): 0.00 Weight (Pounds): 185 Precautions Precautions/Isolations: Standard Precautions Referral Physician: Gareth Reason for Referral: Evaluation/Treatment Medical History Pertinent Medical History: CAD, Heart Failure, HTN, Smoking Current History EMS secondary to SOA and bilateral LE edema Reviewed History: Yes Social History Home: Apartment Current Living Status: Alone Prior Prior Level of Function SCALE: Activities may be completed with or without assistive devices. 3-Ltaemjjavm-vlmyqop completes the activity by him/herself with no assistance from a helper. 5-Set-up or Clean-up Assistance-helper sets up or cleans up; patient completes activity. [place] assists only prior to or following the activity. 4-Supervision or Touching Assistance-helper provides verbal cues and/or touching/steadying and/or contact guard assistance as patient completes activity. Assistance may be provided throughout the activity or intermittently. 3-Partial/Moderate Assistance-helper does LESS THAN HALF the effort. [place] lifts, holds or supports trunk or limbs, but provides less than half the effort. 2-Substantial/Maximal Assistance-helper does MORE THAN HALF the effort. [place] lifts or holds trunk or limbs and provides more than half the effort. 3-Eurkqyslq-zjlrlp does ALL the effort. Patient does none of the effort to complete the activity. Or, the assistance of 2 or more helpers is required for the patient to complete the activity. If activity was not attempted, code reason: 7-Patient Refused. 9-Not Applicable-not attempted and the patient did not perform the activity before the current illness, exacerbation or injury. 10-Not Attempted due to Environmental Limitations-(lack of equipment, weather restraints, etc.). 88-Not Attempted due to Medical Conditions or Safety Concerns. Bed Mobility: 6 Transfers (B,C,W/C): 6 Gait: 6 Stairs: 9 Indoor Mobility (Ambulation): Independent Stairs: Independent Prior Devices Use: None PT Evaluation-Current Subjective Patient agrees to PT. Pain Location: No Pain Reported Objective Patient Orientation: Normal For Age Attachments: Oxygen (5L HF NC) ROM/Strength ROM Lower Extremities bilateral LE WFL Strength Lower Extremities 4/5 grossly bilateral LE Integumentary/Posture Integumentary refer to nursing notes Bowel Incontinence: No Bladder Incontinence: No Posture WFL Neuromuscular (Tone, Coordination, Reflexes) grossly intact Sensory Vision: Functional Hearing: Functional Sensation Right Lower Extremit: Intact Sensation Left Lower Extremity: Intact Transfers Roll Left to Right (QC): 6 Sit to Lying (QC): 6 Lying to Sitting/Side of Bed(Q: 6 Sit to Stand (QC): 6 Chair/Cqb-bi-Dqvkt Xfer(QC): 6 Gait Does the Patient Walk?: Yes Mode of Locomotion: Walk Anticipated Mode of Locomotion: Walk Walk 10 feet (QC): 6 Walk 50 ft with 2 Turns(QC): 6 Walk 150 ft (QC): 6 Distance: 250' Gait Assistive Device: None Comments/Gait Description safe and functional gait sequence Balance Sitting Static: Normal Sitting Dynamic: Normal Standing Static: Normal Standing Dynamic: Normal Treatment SAO2 decreases to 85% on 6L O2 NC HF with ambulation. Patient required 3 standing recovery periods due to SOA Assessment/Needs 69 y.o. female, with limited pulmonary functional, will be seen short term by skilled PT to address pulmonary function with functional mobility. Rehab Potential: Fair PT Mcc Goals Mcc Goals PT Appeals Manager Goals Time Frame: Jan 23, 2020 Roll Left & Right (QC): 6 Sit to Lying (QC): 6 Lying-Sitting on Side/Bed(QC): 6 Sit to Stand (QC): 6 Chair/Kby-pj-Tuavt Xfer(QC): 6 Toilet Transfer (QC): 6 Does the Patient Walk: Yes Walk 10 feet (QC): 6 Walk 50ft with 2 Turns (QC): 6 Walk 150 ft (QC): 6 PT Plan Problem List Problem List: Activity Tolerance Treatment/Plan Treatment Plan: Continue Plan of Care Treatment Plan: Education, Functional Activity Senthil, Safety, Therapeutic Exercise, Transfers, Other (pulmonary function) Treatment Duration: Jan 23, 2020 Frequency: 5 times per week Estimated Hrs Per Day: .25 hour per day Patient and/or Family Agrees t: Yes Time/GCodes Time In: 825 Time Out: 843 Total Billed Treatment Time: 18 Total Billed Treatment 1 visit EVMod 18 min HI SPARROW PT Jan 19, 2020 10:43
--- NOTE | 2020-01-19 13:01 | Cardiology Progress Note ---
Cardiology SOAP Progress Note Subjective: Improved shortness of breath. Objective: I&O/Vital Signs 01/19/20 01/19/20 01/19/20 01/19/20 01:00 01:00 01:50 02:00 Pulse 63 63 68 72 Resp 16 B/P (MAP) 113/61 (78) 118/68 (85) Pulse Ox 93 94 94 O2 Delivery NIV Bilevel NIV Bilevel O2 Flow Rate 40.00 40.00 40.00 01/19/20 01/19/20 01/19/20 01/19/20 03:00 03:30 03:51 04:00 Pulse 86 85 84 B/P (MAP) 97/73 (81) 104/54 (71) Pulse Ox 96 94 94 93 O2 Delivery NIV Bilevel NIV Bilevel Nasal Cannula Nasal Cannula O2 Flow Rate 40.00 4.00 4.00 FiO2 40 01/19/20 01/19/20 01/19/20 01/19/20 05:00 06:00 06:55 07:00 Pulse 77 79 B/P (MAP) 122/61 (81) 129/73 (91) Pulse Ox 92 92 94 90 O2 Delivery Nasal Cannula Nasal Cannula High Flow N/C O2 Flow Rate 4.00 4.00 4.00 01/19/20 01/19/20 01/19/20 01/19/20 07:00 07:16 08:00 08:00 Pulse 77 83 96 B/P (MAP) 139/92 (108) 127/55 (79) Pulse Ox 89 94 97 O2 Delivery Nasal Cannula High Flow N/C Nasal Cannula O2 Flow Rate 4.00 4.00 4.00 01/19/20 01/19/20 01/19/20 01/19/20 08:00 09:00 10:21 10:42 Temp 36.8 Pulse 92 74 B/P (MAP) 133/75 (94) 123/64 (83) Pulse Ox 98 96 O2 Delivery Nasal Cannula High Flow N/C Nasal Cannula O2 Flow Rate 4.00 5.00 4.00 01/19/20 01/19/20 10:55 11:45 Temp 36.8 36.8 Pulse 92 92 Resp 16 15 B/P (MAP) 156/86 (109) 156/86 (109) Pulse Ox 93 93 O2 Delivery Nasal Cannula Nasal Cannula O2 Flow Rate 4.00 4.00 01/19/20 00:00 Intake Total 1520 ml Balance 1520 ml Weight (Pounds): 185 Weight (Calculated Kilograms): 83.810152 Constitutional: appears stated age, well-developed, well-nourished Respiratory: chest is bilaterally symmetric, other (decreased breath sounds bilaterally.) Cardiovascular: regular rate-rhythm, S1 and S2; No systolic murmur Gastrointestional: soft, audible bowel sounds; No spleenomegaly Extremities: normal range of motion, non-tender, normal inspection; No clubbing , No cyanosis; significant edema Neurologic/Psychiatric: no motor/sensory deficits, alert, normal mood/affect, oriented x 3, power is 5/5 both on sides Skin: normal color, warm/dry Results/Procedures: Labs Laboratory Tests 01/18/20 16:16: Glucometer 153H 01/18/20 20:39: Glucometer 248H 01/19/20 02:56: White Blood Count 5.6, Red Blood Count 4.44, Hemoglobin 12.2, Hematocrit 41, Mean Corpuscular Volume 93, Mean Corpuscular Hemoglobin 28, Mean Corpuscular Hemoglobin Concent 30L, Red Cell Distribution Width 16.4H, Platelet Count 197, Mean Platelet Volume 11.1H, Neutrophils (%) (Auto) 91H, Lymphocytes (%) (Auto) 5L, Monocytes (%) (Auto) 4, Eosinophils (%) (Auto) 0, Basophils (%) (Auto) 0, Neutrophils # (Auto) 5.1, Lymphocytes # (Auto) 0.3L, Monocytes # (Auto) 0.2, Eosinophils # (Auto) 0.0, Basophils # (Auto) 0.0, Sodium Level 141, Potassium Level 4.1, Chloride Level 100, Carbon Dioxide Level 33H, Anion Gap 8, Blood Urea Nitrogen 32H, Creatinine 1.13, Estimat Glomerular Filtration Rate 48, BUN/Creatinine Ratio 28, Glucose Level 152H, Calcium Level 8.9, Phosphorus Level 4.3, Magnesium Level 2.5H 01/19/20 11:23: Glucometer 194H Microbiology 01/12/20 MRSA Screen - Final, Complete MRSA not isolated 01/12/20 Urine Culture - Final, Complete 3 or more isolates 01/12/20 Blood Culture - Final, Complete No growth A/P: Assessment/Dx: Acute diastolic congestive heart failure, Acute hypercarbic respiratory failure, Hypertension, Positive troponin, mild CAD. Pulmonary hypertension, moderate to severe tricuspid regurgitation Plan: Acute diastolic congestive heart failure, checks x-ray showed possible hilar congestion, BNP 500. Some improvement with IV Lasix. Continue Lasix IV 80 mg daily. However shortness of breath is out of proportion to the amount of congestive heart failure. Dr. Bella from pulmonary following. Echocardiogram showed normal LV function, LVH with mild diastolic dysfunction. Therefore working diagnoses includes acute diastolic congestive heart failure. Acute hypercarbic respiratory failure, likely multifactorial; COPD exacerbation. Significant improvement since admission. Hypertension, stable blood pressure. Positive troponin, unclear etiology. Could be type II myocardial infarction due to acute respiratory failure/acute congestive heart failure. However non-STEMI due to plaque rupture cannot be ruled out. Coronary angiography done on 01/18/2020 showed mild mid LAD CAD with some bridging. Likely type II myocardial infarction secondary to acute respiratory failure. Pulmonary hypertension: Likely secondary to severe lung disease. Moderate to severe tricuspid regurgitation: Will continue to follow clinically. Thank you for your consultation. Please call me if you have any questions. Stanton Luo MD, FACP, FACC, FSCAI, FHRS, CCDS Interventional Cardiology Cardiac Electrophysiology Vascular Medicine and Endovascular Interventions Ceci LUO MD Jan 19, 2020 13:01
--- NOTE | 2020-01-19 15:18 | NUR ---
CM/SS: Visit with pt as to plan for discharge Plan: Pt to return home with no identified services Summary: Pt reports having the heart cath has made all the difference. She reports feeling better and that she already has oxygen at home. She reports getting along ok at home and lives in [place] and continues to not have need for services when she leaves the hospital. This worker shares with her if that were to change to let the nurse or this worker know. She verbalizes understanding.
[2020-01-20 00:30] VITALS: BP 127/74
[2020-01-20] MEDS: RT-ALBUTEROL/IPRATROPIUM 3 ML (DUONEB) VIAL INH SCH ×3 (01:44→10:20)
[2020-01-20 04:00] VITALS: BP 154/77
[2020-01-20 05:33] LABS: BASOPHILS % (AUTO) 0 % (0-10); EOSINOPHILS % (AUTO) 0 % (0-10); HEMATOCRIT 41 % (35-52); HEMOGLOBIN 12.4 G/DL (11.5-16.0); LYMPHOCYTES # (AUTO) 0.3 X 10^3 (1.0-4.0); LYMPHOCYTES % (AUTO) 6 % (12-44); MEAN CORPUSCULAR HEMOGLOBIN 28 PG (25-34); MEAN CORPUSCULAR HGB CONC 30 G/DL (32-36); MEAN CORPUSCULAR VOLUME 92 FL (80-99); MEAN PLATELET VOLUME 11.3 FL (7.4-10.4); MONOCYTES # (AUTO) 0.3 X 10^3 (0.0-1.0); MONOCYTES % (AUTO) 5 % (0-12); NEUTROPHILS # (AUTO) 5.1 X 10^3 (1.8-7.8); NEUTROPHILS % (AUTO) 90 % (42-75); PLATELET COUNT 191 10^3/uL (130-400); RED CELL DISTRIBUTION WIDTH 16.4 % (10.0-14.5); WHITE BLOOD COUNT 5.7 10^3/uL (4.3-11.0)
[2020-01-20 06:05] LABS: POTASSIUM 5.1 MMOL/L (3.6-5.0)
[2020-01-20 06:06] LABS: CALCIUM 8.9 MG/DL (8.5-10.1)
[2020-01-20] MEDS: KCL 20 MEQ TAB (K-DUR) PO SCH (06:06)
[2020-01-20] MEDS: POTASSIUM CL 10MEQ/50ML IVPB 50 ML IV SCH (06:06)
[2020-01-20 06:10] LABS: PHOSPHORUS 4.1 MG/DL (2.3-4.7)
[2020-01-20 06:11] LABS: CREATININE SERUM 0.99 MG/DL (0.60-1.30)
[2020-01-20 06:13] LABS: MAGNESIUM 2.5 MG/DL (1.6-2.4)
[2020-01-20] MEDS: MAGNESIUM 1 GM/100 ML IVPB 100 ML IV SCH (06:14)
[2020-01-20] MEDS: methylPREDNISolone 40 MG/ML (Solu-MEDROL) VIAL IV SCH ×2 (06:19)
[2020-01-20] MEDS: inSUlin ASPART (NovoLOG) 1 UNIT/0.01 ML (CHARGE PER UNIT) SC SCH ×2 (06:19→11:07)
--- NOTE | 2020-01-20 06:58 | Pulmonary Progress Note ---
Subjective Time Seen by a Provider: 06:54 Subjective/Events-last exam No complications noted. Sepsis Event Evaluation Height, Weight, BMI Height: 5'0.00" Weight: 185lbs. oz. 83.270642tx; 34.00 BMI Method: Exam Exam Vital Signs Date Time Temp Pulse Resp B/P (MAP) Pulse Ox O2 Delivery O2 Flow Rate FiO2 01/20/20 04:00 36.9 79 20 154/77 (102) 96 NIV Bilevel 40.00 01/20/20 01:45 71 21 94 40.00 01/20/20 00:30 36.6 78 16 127/74 (91) 96 NIV Bilevel 40.00 01/19/20 21:11 94 21 98 40.00 01/19/20 21:00 Nasal Cannula 4.00 01/19/20 20:16 36.2 90 18 138/73 (94) 94 Nasal Cannula 5.00 01/19/20 18:21 91 Nasal Cannula 5.00 01/19/20 18:18 91 Nasal Cannula 5.00 01/19/20 16:00 36.2 76 18 135/86 (102) 96 Nasal Cannula 5.00 01/19/20 15:00 93 Nasal Cannula 5.00 01/19/20 11:45 36.8 92 15 156/86 (109) 93 Nasal Cannula 4.00 01/19/20 10:55 36.8 92 16 156/86 (109) 93 Nasal Cannula 4.00 01/19/20 10:42 74 123/64 (83) 96 Nasal Cannula 4.00 01/19/20 10:21 98 High Flow N/C 5.00 01/19/20 09:00 92 133/75 (94) Nasal Cannula 4.00 01/19/20 08:00 36.8 01/19/20 08:00 96 127/55 (79) 97 Nasal Cannula 4.00 01/19/20 08:00 94 High Flow N/C 4.00 01/19/20 07:16 83 01/19/20 07:00 77 139/92 (108) 89 Nasal Cannula 4.00 01/19/20 07:00 90 01/19/20 06:55 94 High Flow N/C 4.00 I & O 01/20/20 07:00 Intake Total 1940 ml Balance 1940 ml Height & Weight Height: 5'0.00" Weight: 185lbs. oz. 83.023189kh; 34.00 BMI Method: General Appearance: No Apparent Distress, WD/WN, Chronically ill HEENT: PERRL/EOMI, Pharynx Normal Neck: Non Tender, Supple Respiratory: Chest Non Tender, Lungs Clear, No Accessory Muscle Use, No Respiratory Distress, Decreased Breath Sounds Cardiovascular: Regular Rate, Rhythm, No Edema, No Gallop, No JVD, No Murmur, Normal Peripheral Pulses Capillary Refill: Less Than 3 Seconds Gastrointestinal: normal bowel sounds, non tender, other (mild distension) Extremity: Normal Range of Motion, Non Tender, No Calf Tenderness, Pedal Edema (2+ upto knees bilateral) Neurologic/Psychiatric: Alert, Oriented x3, No Motor/Sensory Deficits, Normal Mood/Affect Skin: Normal Color, Warm/Dry Lymphatic: No Adenopathy Results Lab Laboratory Tests 01/19/20 02:56 01/20/20 05:20 Assessment/Plan Assessment/Plan Acute on chronic respiratory failure - Improving oxygen requirements -Pt has improved with BiPAP -Will need out pt testing -BiPAP QHS. Vapotherm during the day -- Titrate oxygen down -s/p cath - -Duoneb Q 4 -solumedrol 40 IV Q 6 -- D/C -CTA of chest -reviewed No PE Contraction alkalosis - Improving -Echo shows EF of 55-65% with grade 1 diastolic dysfunction. COPDAE -Pt uses 2-3 liters of oxygen at home over the last 3yrs. - Duoneb Q 4 NSTEMI -Cardiology following CHF - Diastolic grade 1 - per echo -Monitor Hx of tobacco use -Out pt PFT Morbid obesity with probable SUSANNAH -Out pt testing ELLIE RIGGS DO Jan 20, 2020 06:58
[2020-01-20 08:00] VITALS: BP 143/81
[2020-01-20] MEDS ORDERED: ADVAIR HFA 115/21 MCG INHALER 8 GM IH SCH (08:00)
[2020-01-20] MEDS: PANTOPRAZOLE 40 MG (PROTONIX) VIAL IV SCH (08:26)
[2020-01-20] MEDS: lisINopril 5 MG (PRINIVIL) TABLET PO SCH (08:26)
--- NOTE | 2020-01-20 09:34 | Physical Therapy Daily Note ---
PT Daily Note-Current Subjective Patient in recliner pre tx, agrees to PT, no complaints of pain. Appearance Patient in recliner post tx with nurse call, phone, tray, all needs met. Mental Status Patient Orientation: Person, Place, Situation, Normal For Age Attachments: Oxygen Transfers SCALE: Activities may be completed with or without assistive devices. 2-Ecyjnuhhcs-wcxdntm completes the activity by him/herself with no assistance from a helper. 5-Set-up or Clean-up Assistance-helper sets up or cleans up; patient completes activity. [place] assists only prior to or following the activity. 4-Supervision or Touching Assistance-helper provides verbal cues and/or touching/steadying and/or contact guard assistance as patient completes activ ity. Assistance may be provided throughout the activity or intermittently. 3-Partial/Moderate Assistance-helper does LESS THAN HALF the effort. [place] lifts, holds or supports trunk or limbs, but provides less than half the effort. 2-Substantial/Maximal Assistance-helper does MORE THAN HALF the effort. [place] lifts or holds trunk or limbs and provides more than half the effort. 9-Gywfuustv-dastkn does ALL the effort. Patient does none of the effort to complete the activity. Or, the assistance of 2 or more helpers is required for the patient to complete the activity. If activity was not attempted, code reason: 7-Patient Refused. 9-Not Applicable-not attempted and the patient did not perform the activity before the current illness, exacerbation or injury. 10-Not Attempted due to Environmental Limitations-(lack of equipment, weather restraints, etc.). 88-Not Attempted due to Medical Conditions or Safety Concerns. Sit to Stand (QC): 6 Chair/Wvy-lh-Nxivy Xfer(QC): 6 Gait Training Distance: 250' Walk 10 feet (QC): 6 Walk 50 ft with 2 Turns(QC): 6 Walk 150 ft (QC): 6 Gait Assistive Device: None Patient gets SOB with ambulation, needed 2 short standing rest breaks, slight limp, slow but steady ambulation Exercises Seated Therapy Exercises: Ankle pumps, Long arc quads Seated Reps: 20 Treatments transfers, ambulation, LE exercise Assessment Current Status: Fair Progress No balance issues PT Home Manager Goals Residential Goals PT Residential Goals Time Frame: Jan 23, 2020 Roll Left & Right (QC): 6 Sit to Lying (QC): 6 Lying-Sitting on Side/Bed(QC): 6 Sit to Stand (QC): 6 Chair/Uzs-by-Gxgde Xfer(QC): 6 Toilet Transfer (QC): 6 Does the Patient Walk: Yes Walk 10 feet (QC): 6 Walk 50ft with 2 Turns (QC): 6 Walk 150 ft (QC): 6 PT Plan Problem List Problem List: Activity Tolerance, Functional Strength, Safety, Balance, Gait, Transfer Treatment/Plan Treatment Plan: Continue Plan of Care Treatment Plan: Education, Functional Activity Senthil, Safety, Therapeutic Exercise, Transfers, Other (pulmonary function) Treatment Duration: Jan 23, 2020 Frequency: 5 times per week Estimated Hrs Per Day: .25 hour per day Patient and/or Family Agrees t: Yes Safety Risks/Education Patient Education: Gait Training, Transfer Techniques, Correct Positioning, Safety Issues Teaching Recipient: Patient Teaching Methods: Demonstration, Discussion Response to Teaching: Reinforcement Needed Time/GCodes Time In: 913 Time Out: 923 Total Billed Treatment Time: 10 Total Billed Treatment 1 visit GT 10' SEUN JOSEPH PT Jan 20, 2020 09:34
--- NOTE | 2020-01-20 09:44 | Occupational Ther Daily Note ---
OT Current Status-Daily Note Subjective Pt seen in room, up in recliner, agreeable to OT. No pain mentioned. Appearance Alert, cooperative Mental Status/Objective Attachments: Oxygen ADL-Treatment Therapy Code Descriptions/Definitions Functional [place] Measure: 0=Not Assessed/NA 4=Minimal Assistance 1=Total Assistance 5=Supervision or Setup 2=Maximal Assistance 6=Modified [place] 3=Moderate Assistance 7=Complete IndependenceSCALE: Activities may be completed with or without assistive devices. 8-Oaxeldzeuv-cqffbok completes the activity by him/herself with no assistance from a helper. 5-Set-up or Clean-up Assistance-helper sets up or cleans up; patient completes activity. [place] assists only prior to or following the activity. 4-Supervision or Touching Assistance-helper provides verbal cues and/or touching/steadying and/or contact guard assistance as patient completes activity. Assistance may be provided throughout the activity or intermittently. 3-Partial/Moderate Assistance-helper does LESS THAN HALF the effort. [place] lifts, holds or supports trunk or limbs, but provides less than half the effort. 2-Substantial/Maximal Assistance-helper does MORE THAN HALF the effort. [place] lifts or holds trunk or limbs and provides more than half the effort. 4-Ywdtcijsv-tltrwj does ALL the effort. Patient does none of the effort to complete the activity. Or, the assistance of 2 or more helpers is required for the patient to complete the activity. If activity was not attempted, code reason: 7-Patient Refused. 9-Not Applicable-not attempted and the patient did not perform the activity before the current illness, exacerbation or injury. 10-Not Attempted due to Environmental Limitations-(lack of equipment, weather restraints, etc.). 88-Not Attempted due to Medical Conditions or Safety Concerns. Other Treatment Pt reported that she had a shower yesterday and had changed clothes. No problems reported with ADLs. Pt provided with written information on energy conservation, followed by education and discussion. Pt was able to identify ways that she conserves her energy at home and was receptive to additional ideas. Pt left up in recliner, all needs met. Education OT Patient Education: Energy conservation, Progress toward Goal/Update tx plan, Purpose of tx/functional activities Teaching Recipient: Patient Teaching Methods: Discussion Response to Teaching: Verbalize Understanding OT Mcfp Goals Home Insurance Agent Goals Time Frame: Jan 22, 2020 Energy conservation education - able to verbalize understanding and application Additional Goals: 1-Demonstrate ADL Tasks, 2-Verbalize Understanding 1=Demonstrate adherence to instructed precautions during ADL tasks. 2=Patient will verbalize/demonstrate understanding of assistive devices/modifications for ADL. 3=Patient will improve strength/tolerance for activity to enable patient to perform ADL's. OT Education/Plan Problem List/Assessment Pt would benefit from skilled OT to increase her independence in basic self care in order to return home safely. Discharge Recommendations Plan/Recommendations: Continue POC Treatment Plan/Plan of Care Patient would benefit from OT for education, treatment and training to promote independence in ADL's, mobility, safety and/or upper extremity function for ADL's. Plan of Care: ADL Retraining, Functional Mobility, OTHER Treatment Duration: Jan 22, 2020 Frequency: 5 times per week Estimated Hrs Per Day: .25 hour per day Agreement: Yes Rehab Potential: Fair Time/GCodes Start Time: 08:50 Stop Time: 09:02 Total Time Billed (hr/min): 12 Billed Treatment Time visit, 12 minutes ADL SARIKA JOHN OT Jan 20, 2020 09:44
[2020-01-20] MEDS: ENOXAPARIN 40 MG/0.4 ML (LOVENOX) SYR SQ SCH (10:24)
--- NOTE | 2020-01-20 11:08 | Discharge Summary ---
Diagnosis/Chief Complaint Date of Admission January 12, 2020 at 19:56 Date of Discharge Discharge Date: Jan 20, 2020 Discharge Diagnosis Assessment: AECHF Hypoxia requiring Vapotherm PNA AECOPD CAD needs cath today Volume overload Plan: Lasix but minimize for renal function protection Cath reviewed Vapotherm dc Very severe issues May need PT OT or IRF but seems to refuse Discharge Summary Discharge Physical Examination Allergies: Coded Allergies: No Known Drug Allergies (Verified , 08/02/08) Vitals & I&Os Vital Signs Date Time Temp Pulse Resp B/P (MAP) Pulse Ox O2 Delivery O2 Flow Rate FiO2 01/20/20 11:25 36.2 78 20 167/84 (111) 96 High Flow N/C 4.00 01/19/20 03:30 40 General Appearance: Alert, Oriented X3, Cooperative Respiratory: Clear to Auscultation Cardiovascular: Regular Rate Neuro: Normal Gait Hospital Course Was the Problem List Reviewed?: Yes Hospital Course: Pt had a lengthy hospital course for 8 days most of it in the ICU for respiratory failure and CHF. She usually wears 4 liters of O2 at home and does have a smoking history. She was ultimately aggressively treated for respiratory failure in the ICU. Consulted cardiology who ultimately performed cardiac catheterization that showed no significant stenosis and no intervention performed. Pt remained on high flow O2, required PT, and structured activity in order to wean down off O2 so she was sent to inpatient rehab to complete her recovery. Labs (last 24 hrs) Laboratory Tests 01/12/20 18:52: White Blood Count 7.7, Red Blood Count 4.50, Hemoglobin 12.7, Hematocrit 43, Mean Corpuscular Volume 95, Mean Corpuscular Hemoglobin 28, Mean Corpuscular Hemoglobin Concent 30L, Red Cell Distribution Width 16.7H, Platelet Count 235, Mean Platelet Volume 10.6H, Neutrophils (%) (Auto) 67, Lymphocytes (%) (Auto) 23, Monocytes (%) (Auto) 9, Eosinophils (%) (Auto) 1, Basophils (%) (Auto) 0, Neutrophils # (Auto) 5.1, Lymphocytes # (Auto) 1.8, Monocytes # (Auto) 0.7, Eosinophils # (Auto) 0.1, Basophils # (Auto) 0.0, Prothrombin Time 14.1, INR Comment 1.1, Activated Partial Thromboplast Time 26, Sodium Level 142, Potassium Level 3.7, Chloride Level 93L, Carbon Dioxide Level 39H, Anion Gap 10, Blood Urea Nitrogen 24H, Creatinine 1.15, Estimat Glomerular Filtration Rate 47, BUN/Creatinine Ratio 21, Glucose Level 191H, Lactic Acid Level 1.40, Calcium Level 9.2, Corrected Calcium 9.2, Magnesium Level 2.2, Total Bilirubin 0.5, Aspartate Amino Transf (AST/SGOT) 23, Alanine Aminotransferase (ALT/SGPT) 25, Alkaline Phosphatase 125, Troponin I 0.142H, C-Reactive Protein High Sensitivity 2.65H, B-Type Natriuretic Peptide 554.7H, Total Protein 7.3, Albumin 4.0 01/12/20 19:56: Lab Scanned Report Referred Lab Report 01/12/20 20:42: Urine Color YELLOW, Urine Clarity CLEAR, Urine pH 6.0, Urine Specific [place] 1.010L, Urine Protein NEGATIVE, Urine Glucose (UA) NEGATIVE, Urine Ketones NEGATIVE, Urine Nitrite NEGATIVE, Urine Bilirubin NEGATIVE, Urine Urobilinogen 0.2, Urine Leukocyte Esterase NEGATIVE, Urine RBC (Auto) 2+H, Urine RBC 2-5H, Urine WBC 0-2, Urine Squamous Epithelial Cells 2-5, Urine Crystals NONE, Urine Bacteria FEWH, Urine Casts PRESENT, Urine Hyaline Casts 0-2H, Urine Mucus NEGATIVE, Urine Culture Indicated CULTURE PENDING 01/13/20 02:30: Blood Gas Puncture Site RIGHTR RADIAL, Blood Gas Patient Temperature 35.7, Arterial Blood pH 7.35L, Arterial Blood Partial Pressure CO2 79*H, Arterial Blood Partial Pressure O2 93, Arterial Blood HCO3 43*H, Arterial Blood Total CO2 46.0H, Arterial Blood Oxygen Saturation 96, Arterial Blood Base Excess 16.8H, Darrius Test POSITIVE, Blood Gas Ventilator Setting NO, Blood Gas Inspired Oxygen 65 01/13/20 02:36: White Blood Count 6.8, Red Blood Count 4.45, Hemoglobin 12.3, Hematocrit 42, Mean Corpuscular Volume 95, Mean Corpuscular Hemoglobin 28, Mean Corpuscular Hemoglobin Concent 29L, Red Cell Distribution Width 16.9H, Platelet Count 217, Mean Platelet Volume 10.4, Neutrophils (%) (Auto) 63, Lymphocytes (%) (Auto) 26, Monocytes (%) (Auto) 10, Eosinophils (%) (Auto) 1, Basophils (%) (Auto) 0, Neutrophils # (Auto) 4.3, Lymphocytes # (Auto) 1.8, Monocytes # (Auto) 0.7, Eosinophils # (Auto) 0.1, Basophils # (Auto) 0.0, Sodium Level 145, Potassium Level 3.6, Chloride Level 94L, Carbon Dioxide Level 39H, Anion Gap 12, Blood Urea Nitrogen 20H, Creatinine 0.94, Estimat Glomerular Filtration Rate 59, BUN/Creatinine Ratio 21, Glucose Level 122H, Calcium Level 8.9, Corrected Calcium 9.0, Phosphorus Level 4.3, Magnesium Level 1.9, Total Bilirubin 0.5, Aspartate Amino Transf (AST/SGOT) 21, Alanine Aminotransferase (ALT/SGPT) 24, Alkaline Phosphatase 108, Troponin I 0.141H, Total Protein 6.6, Albumin 3.9 01/13/20 11:20: Glucometer 102 01/13/20 14:55: Glucometer 119H 01/13/20 20:26: Glucometer 160H 01/14/20 03:36: White Blood Count 6.8, Red Blood Count 2.60L, Hemoglobin 8.6#L, Hematocrit 27L, Mean Corpuscular Volume 102H, Mean Corpuscular Hemoglobin 33, Mean Corpuscular Hemoglobin Concent 32, Red Cell Distribution Width 15.6H, Platelet Count 329, Mean Platelet Volume 9.6, Neutrophils (%) (Auto) 71, Lymphocytes (%) (Auto) 16, Monocytes (%) (Auto) 10, Eosinophils (%) (Auto) 3, Basophils (%) (Auto) 0, Neutrophils # (Auto) 4.8, Lymphocytes # (Auto) 1.1, Monocytes # (Auto) 0.7, Eosinophils # (Auto) 0.2, Basophils # (Auto) 0.0, Sodium Level 141, Potassium Level 4.9, Chloride Level 93L, Carbon Dioxide Level 34H, Anion Gap 14, Blood Urea Nitrogen 15, Creatinine 0.86, Estimat Glomerular Filtration Rate > 60, BUN/Creatinine Ratio 17, Glucose Level 155H, Calcium Level 8.7, Phosphorus Level 4.3, Magnesium Level 1.8, Smear Scan YES 01/14/20 05:05: Blood Gas Puncture Site RT RADIAL, Blood Gas Patient Temperature 35.4, Arterial Blood pH 7.33*L, Arterial Blood Partial Pressure CO2 86*H, Arterial Blood Partial Pressure O2 74L, Arterial Blood HCO3 46*H, Arterial Blood Total CO2 48.5H, Arterial Blood Oxygen Saturation 93L, Arterial Blood Base Excess 18.6H, Darrius Test YES-POS, Blood Gas Ventilator Setting NO, Blood Gas Inspired Oxygen 60% 01/15/20 02:41: White Blood Count 6.2, Red Blood Count 4.12L, Hemoglobin 11.4#L, Hematocrit 40, Mean Corpuscular Volume 96, Mean Corpuscular Hemoglobin 28, Mean Corpuscular Hemoglobin Concent 29L, Red Cell Distribution Width 16.2H, Platelet Count 211, Mean Platelet Volume 10.8H, Neutrophils (%) (Auto) 91H, Lymphocytes (%) (Auto) 7L, Monocytes (%) (Auto) 2, Eosinophils (%) (Auto) 0, Basophils (%) (Auto) 0, Ne utrophils # (Auto) 5.6, Lymphocytes # (Auto) 0.4L, Monocytes # (Auto) 0.1, Eosinophils # (Auto) 0.0, Basophils # (Auto) 0.0, Sodium Level 140, Potassium Level 4.0, Chloride Level 88L, Carbon Dioxide Level 41H, Anion Gap 11, Blood Urea Nitrogen 20H, Creatinine 0.97, Estimat Glomerular Filtration Rate 57, BUN/Creatinine Ratio 21, Glucose Level 172H, Calcium Level 8.8, Phosphorus Level 3.9, Magnesium Level 1.9, B-Type Natriuretic Peptide 160.9H, Procalcitonin 0.05 01/15/20 03:15: Blood Gas Puncture Site RIGHT RADIAL, Blood Gas Patient Temperature 36.2, Arterial Blood pH 7.38, Arterial Blood Partial Pressure CO2 73*H, Arterial Blood Partial Pressure O2 150H, Arterial Blood HCO3 43*H, Arterial Blood Total CO2 44.9H, Arterial Blood Oxygen Saturation 100, Arterial Blood Base Excess 16.4H, Darrius Test YES-POS, Blood Gas Ventilator Setting YES, Blood Gas Inspired Oxygen 70% 01/16/20 03:00: White Blood Count 7.2, Red Blood Count 4.30L, Hemoglobin 11.9, Hematocrit 41, Mean Corpuscular Volume 94, Mean Corpuscular Hemoglobin 28, Mean Corpuscular Hemoglobin Concent 29L, Red Cell Distribution Width 16.7H, Platelet Count 226, Mean Platelet Volume 11.0H, Neutrophils (%) (Auto) 89H, Lymphocytes (%) (Auto) 5L, Monocytes (%) (Auto) 5, Eosinophils (%) (Auto) 0, Basophils (%) (Auto) 0, Neutrophils # (Auto) 6.4, Lymphocytes # (Auto) 0.4L, Monocytes # (Auto) 0.4, Eosinophils # (Auto) 0.0, Basophils # (Auto) 0.0, Sodium Level 144, Potassium Level 4.3, Chloride Level 91L, Carbon Dioxide Level 42H, Anion Gap 11, Blood Urea Nitrogen 29H, Creatinine 1.03, Estimat Glomerular Filtration Rate 53, BUN/Creatinine Ratio 28, Glucose Level 172H, Calcium Level 9.2, Phosphorus Level 3.0, Magnesium Level 2.0 01/16/20 03:15: Blood Gas Puncture Site RIGHT RADIAL, Blood Gas Patient Temperature 37.2, Arterial Blood pH 7.47H, Arterial Blood Partial Pressure CO2 63H, Arterial Blood Partial Pressure O2 94H, Arterial Blood HCO3 45*H, Arterial Blood Total CO2 46.6H, Arterial Blood Oxygen Saturation 97, Arterial Blood Base Excess 19.3H, Darrius Test YES-POS, Blood Gas Ventilator Setting NO, Blood Gas Inspired Oxygen 45% 01/17/20 03:30: White Blood Count 5.9, Red Blood Count 4.33L, Hemoglobin 12.0, Hematocrit 42, Mean Corpuscular Volume 97, Mean Corpuscular Hemoglobin 28, Mean Corpuscular Hemoglobin Concent 29L, Red Cell Distribution Width 16.7H, Platelet Count 219, Mean Platelet Volume 10.8H, Neutrophils (%) (Auto) 90H, Lymphocytes (%) (Auto) 5L, Monocytes (%) (Auto) 5, Eosinophils (%) (Auto) 0, Basophils (%) (Auto) 0, Neutrophils # (Auto) 5.3, Lymphocytes # (Auto) 0.3L, Monocytes # (Auto) 0.3, Eosinophils # (Auto) 0.0, Basophils # (Auto) 0.0, Sodium Level 144, Potassium Level 3.6, Chloride Level 94L, Carbon Dioxide Level 40H, Anion Gap 10, Blood Urea Nitrogen 31H, Creatinine 1.19, Estimat Glomerular Filtration Rate 45, BUN/Creatinine Ratio 26, Glucose Level 203H, Calcium Level 9.2, Phosphorus Level 4.8H, Magnesium Level 2.4 01/17/20 20:37: Stool Occult Blood Immunoassay POSITIVEH 01/18/20 03:01: White Blood Count 5.7, Red Blood Count 4.33L, Hemoglobin 12.1, Hematocrit 41, Mean Corpuscular Volume 94, Mean Corpuscular Hemoglobin 28, Mean Corpuscular Hemoglobin Concent 30L, Red Cell Distribution Width 16.5H, Platelet Count 200, Mean Platelet Volume 11.3H, Neutrophils (%) (Auto) 88H, Lymphocytes (%) (Auto) 6L, Monocytes (%) (Auto) 7, Eosinophils (%) (Auto) 0, Basophils (%) (Auto) 0, Neutrophils # (Auto) 5.0, Lymphocytes # (Auto) 0.3L, Monocytes # (Auto) 0.4, Eosinophils # (Auto) 0.0, Basophils # (Auto) 0.0, Sodium Level 141, Potassium Level 3.8, Chloride Level 99, Carbon Dioxide Level 30, Anion Gap 12, Blood Urea Nitrogen 27H, Creatinine 1.16, Estimat Glomerular Filtration Rate 46, BUN/Creatinine Ratio 23, Glucose Level 202H, Calcium Level 9.1, Phosphorus Level 3.9, Magnesium Level 2.4 01/18/20 05:27: Glucometer 197H 01/18/20 11:37: Glucometer 141H 01/18/20 16:16: Glucometer 153H 01/18/20 20:39: Glucometer 248H 01/19/20 02:56: White Blood Count 5.6, Red Blood Count 4.44, Hemoglobin 12.2, Hematocrit 41, Mean Corpuscular Volume 93, Mean Corpuscular Hemoglobin 28, Mean Corpuscular Hemoglobin Concent 30L, Red Cell Distribution Width 16.4H, Platelet Count 197, M ingris Platelet Volume 11.1H, Neutrophils (%) (Auto) 91H, Lymphocytes (%) (Auto) 5L , Monocytes (%) (Auto) 4, Eosinophils (%) (Auto) 0, Basophils (%) (Auto) 0, Neutrophils # (Auto) 5.1, Lymphocytes # (Auto) 0.3L, Monocytes # (Auto) 0.2, Eosinophils # (Auto) 0.0, Basophils # (Auto) 0.0, Sodium Level 141, Potassium Level 4.1, Chloride Level 100, Carbon Dioxide Level 33H, Anion Gap 8, Blood Urea Nitrogen 32H, Creatinine 1.13, Estimat Glomerular Filtration Rate 48, BUN/Creatinine Ratio 28, Glucose Level 152H, Calcium Level 8.9, Phosphorus Level 4.3, Magnesium Level 2.5H 01/19/20 11:23: Glucometer 194H 01/19/20 16:04: Glucometer 239H 01/19/20 20:28: Glucometer 263H 01/20/20 05:20: White Blood Count 5.7, Red Blood Count 4.49, Hemoglobin 12.4, Hematocrit 41, Mean Corpuscular Volume 92, Mean Corpuscular Hemoglobin 28, Mean Corpuscular Hemoglobin Concent 30L, Red Cell Distribution Width 16.4H, Platelet Count 191, Mean Platelet Volume 11.3H, Neutrophils (%) (Auto) 90H, Lymphocytes (%) (Auto) 6L, Monocytes (%) (Auto) 5, Eosinophils (%) (Auto) 0, Basophils (%) (Auto) 0, Neutrophils # (Auto) 5.1, Lymphocytes # (Auto) 0.3L, Monocytes # (Auto) 0.3, Eosinophils # (Auto) 0.0, Basophils # (Auto) 0.0, Sodium Level 142, Potassium Level 5.1H, Chloride Level 101, Carbon Dioxide Level 33H, Anion Gap 8, Blood Urea Nitrogen 30H, Creatinine 0.99, Estimat Glomerular Filtration Rate 56, BUN/Creatinine Ratio 30, Glucose Level 189H, Calcium Level 8.9, Phosphorus Level 4.1, Magnesium Level 2.5H 01/20/20 11:01: Glucometer 160H Microbiology 01/12/20 MRSA Screen - Final, Complete MRSA not isolated 01/12/20 Urine Culture - Final, Complete 3 or more isolates 01/12/20 Blood Culture - Final, Complete No growth Pending Labs Microbiology Date/Time Source Procedure Growth Status 01/12/20 22:20 Nasal MRSA Screen - Final MRSA not isolated Complete 01/12/20 20:42 Urine Clean Catch Urine Culture - Final 3 or more isolates Complete 01/12/20 19:15 Peripheral Rt Ac Blood Culture - Final No growth Complete 01/12/20 18:52 Peripheral Lt Ac Blood Culture - Final No growth Complete Laboratory Tests 01/12/20 18:52: White Blood Count 7.7, Red Blood Count 4.50, Hemoglobin 12.7, Hematocrit 43, Mean Corpuscular Volume 95, Mean Corpuscular Hemoglobin 28, Mean Corpuscular Hemoglobin Concent 30, Red Cell Distribution Width 16.7, Platelet Count 235, Mean Platelet Volume 10.6, Neutrophils (%) (Auto) 67, Lymphocytes (%) (Auto) 23, Monocytes (%) (Auto) 9, Eosinophils (%) (Auto) 1, Basophils (%) (Auto) 0, Neutrophils # (Auto) 5.1, Lymphocytes # (Auto) 1.8, Monocytes # (Auto) 0.7, Eosinophils # (Auto) 0.1, Basophils # (Auto) 0.0, Prothrombin Time 14.1, INR Comment 1.1, Activated Partial Thromboplast Time 26, Sodium Level 142, Potassium Level 3.7, Chloride Level 93, Carbon Dioxide Level 39, Anion Gap 10, Blood Urea Nitrogen 24, Creatinine 1.15, Estimat Glomerular Filtration Rate 47, BUN/Creatinine Ratio 21, Glucose Level 191, Lactic Acid Level 1.40, Calcium Level 9.2, Corrected Calcium 9.2, Magnesium Level 2.2, Total Bilirubin 0.5, Aspartate Amino Transf (AST/SGOT) 23, Alanine Aminotransferase (ALT/SGPT) 25, Alkaline Phosphatase 125, Troponin I 0.142, C-Reactive Protein High Sensitivity 2.65, B-Type Natriuretic Peptide 554.7, Total Protein 7.3, Albumin 4.0 01/12/20 19:56: Lab Scanned Report Referred Lab Report 01/12/20 20:42: Urine Color YELLOW, Urine Clarity CLEAR, Urine pH 6.0, Urine Specific [place] 1.010, Urine Protein NEGATIVE, Urine Glucose (UA) NEGATIVE, Urine Ketones NEGATIVE, Urine Nitrite NEGATIVE, Urine Bilirubin NEGATIVE, Urine Urobilinogen 0.2, Urine Leukocyte Esterase NEGATIVE, Urine RBC (Auto) 2+, Urine RBC 2-5, Urine WBC 0-2, Urine Squamous Epithelial Cells 2-5, Urine Crystals NONE, Urine Bacteria FEW, Urine Casts PRESENT, Urine Hyaline Casts 0-2, Urine Mucus NEGATIVE, Urine Culture Indicated CULTURE PENDING 01/13/20 02:30: Blood Gas Puncture Site RIGHTR RADIAL, Blood Gas Patient Temperature 35.7, Arterial Blood pH 7.35, Arterial Blood Partial Pressure CO2 79, Arterial Blood Partial Pressure O2 93, Arterial Blood HCO3 43, Arterial Blood Total CO2 46.0, Arterial Blood Oxygen Saturation 96, Arterial Blood Base Excess 16.8, Darrius Test POSITIVE, Blood Gas Ventilator Setting NO, Blood Gas Inspired Oxygen 65 01/13/20 02:36: White Blood Count 6.8, Red Blood Count 4.45, Hemoglobin 12.3, Hematocrit 42, Mean Corpuscular Volume 95, Mean Corpuscular Hemoglobin 28, Mean Corpuscular Hemoglobin Concent 29, Red Cell Distribution Width 16.9, Platelet Count 217, Mean Platelet Volume 10.4, Neutrophils (%) (Auto) 63, Lymphocytes (%) (Auto) 26, Monocytes (%) (Auto) 10, Eosinophils (%) (Auto) 1, Basophils (%) (Auto) 0, Neutrophils # (Auto) 4.3, Lymphocytes # (Auto) 1.8, Monocytes # (Auto) 0.7, Eosinophils # (Auto) 0.1, Basophils # (Auto) 0.0, Sodium Level 145, Potassium Level 3.6, Chloride Level 94, Carbon Dioxide Level 39, Anion Gap 12, Blood Urea Nitrogen 20, Creatinine 0.94, Estimat Glomerular Filtration Rate 59, BUN/Creatinine Ratio 21, Glucose Level 122, Calcium Level 8.9, Corrected Calcium 9.0, Phosphorus Level 4.3, Magnesium Level 1.9, Total Bilirubin 0.5, Aspartate Amino Transf (AST/SGOT) 21, Alanine Aminotransferase (ALT/SGPT) 24, Alkaline Ph osphatase 108, Troponin I 0.141, Total Protein 6.6, Albumin 3.9 01/13/20 11:20: Glucometer 102 01/13/20 14:55: Glucometer 119 01/13/20 20:26: Glucometer 160 01/14/20 03:36: White Blood Count 6.8, Red Blood Count 2.60, Hemoglobin 8.6, Hematocrit 27, Mean Corpuscular Volume 102, Mean Corpuscular Hemoglobin 33, Mean Corpuscular Hemoglobin Concent 32, Red Cell Distribution Width 15.6, Platelet Count 329, Mean Platelet Volume 9.6, Neutrophils (%) (Auto) 71, Lymphocytes (%) (Auto) 16, Monocytes (%) (Auto) 10, Eosinophils (%) (Auto) 3, Basophils (%) (Auto) 0, Neutrophils # (Auto) 4.8, Lymphocytes # (Auto) 1.1, Monocytes # (Auto) 0.7, Eosinophils # (Auto) 0.2, Basophils # (Auto) 0.0, Sodium Level 141, Potassium Level 4.9, Chloride Level 93, Carbon Dioxide Level 34, Anion Gap 14, Blood Urea Nitrogen 15, Creatinine 0.86, Estimat Glomerular Filtration Rate > 60, BUN/Creatinine Ratio 17, Glucose Level 155, Calcium Level 8.7, Phosphorus Level 4.3, Magnesium Level 1.8, Smear Scan YES 01/14/20 05:05: Blood Gas Puncture Site RT RADIAL, Blood Gas Patient Temperature 35.4, Arterial Blood pH 7.33, Arterial Blood Partial Pressure CO2 86, Arterial Blood Partial Pressure O2 74, Arterial Blood HCO3 46, Arterial Blood Total CO2 48.5, Arterial Blood Oxygen Saturation 93, Arterial Blood Base Excess 18.6, Darrius Test YES-POS, Blood Gas Ventilator Setting NO, Blood Gas Inspired Oxygen 60% 01/15/20 02:41: White Blood Count 6.2, Red Blood Count 4.12, Hemoglobin 11.4, Hematocrit 40, Mean Corpuscular Volume 96, Mean Corpuscular Hemoglobin 28, Mean Corpuscular Hemoglobin Concent 29, Red Cell Distribution Width 16.2, Platelet Count 211, Mean Platelet Volume 10.8, Neutrophils (%) (Auto) 91, Lymphocytes (%) (Auto) 7, Monocytes (%) (Auto) 2, Eosinophils (%) (Auto) 0, Basophils (%) (Auto) 0, Neutrophils # (Auto) 5.6, Lymphocytes # (Auto) 0.4, Monocytes # (Auto) 0.1, Eosinophils # (Auto) 0.0, Basophils # (Auto) 0.0, Sodium Level 140, Potassium Level 4.0, Chloride Level 88, Carbon Dioxide Level 41, Anion Gap 11, Blood Urea Nitrogen 20, Creatinine 0.97, Estimat Glomerular Filtration Rate 57, BUN/Creatinine Ratio 21, Glucose Level 172, Calcium Level 8.8, Phosphorus Level 3.9, Magnesium Level 1.9, B-Type Natriuretic Peptide 160.9, Procalcitonin 0.05 01/15/20 03:15: Blood Gas Puncture Site RIGHT RADIAL, Blood Gas Patient Temperature 36.2, Arterial Blood pH 7.38, Arterial Blood Partial Pressure CO2 73, Arterial Blood P artial Pressure O2 150, Arterial Blood HCO3 43, Arterial Blood Total CO2 44.9, Arterial Blood Oxygen Saturation 100, Arterial Blood Base Excess 16.4, Darrius Test YES-POS, Blood Gas Ventilator Setting YES, Blood Gas Inspired Oxygen 70% 01/16/20 03:00: White Blood Count 7.2, Red Blood Count 4.30, Hemoglobin 11.9, Hematocrit 41, Mean Corpuscular Volume 94, Mean Corpuscular Hemoglobin 28, Mean Corpuscular Hemoglobin Concent 29, Red Cell Distribution Width 16.7, Platelet Count 226, Mean Platelet Volume 11.0, Neutrophils (%) (Auto) 89, Lymphocytes (%) (Auto) 5, Monocytes (%) (Auto) 5, Eosinophils (%) (Auto) 0, Basophils (%) (Auto) 0, Neutrophils # (Auto) 6.4, Lymphocytes # (Auto) 0.4, Monocytes # (Auto) 0.4, Eosinophils # (Auto) 0.0, Basophils # (Auto) 0.0, Sodium Level 144, Potassium Level 4.3, Chloride Level 91, Carbon Dioxide Level 42, Anion Gap 11, Blood Urea Nitrogen 29, Creatinine 1.03, Estimat Glomerular Filtration Rate 53, BUN/Creatinine Ratio 28, Glucose Level 172, Calcium Level 9.2, Phosphorus Level 3.0, Magnesium Level 2.0 01/16/20 03:15: Blood Gas Puncture Site RIGHT RADIAL, Blood Gas Patient Temperature 37.2, Arterial Blood pH 7.47, Arterial Blood Partial Pressure CO2 63, Arterial Blood Partial Pressure O2 94, Arterial Blood HCO3 45, Arterial Blood Total CO2 46.6, Arterial Blood Oxygen Saturation 97, Arterial Blood Base Excess 19.3, Darrius Test YES-POS, Blood Gas Ventilator Setting NO, Blood Gas Inspired Oxygen 45% 01/17/20 03:30: White Blood Count 5.9, Red Blood Count 4.33, Hemoglobin 12.0, Hematocrit 42, Mean Corpuscular Volume 97, Mean Corpuscular Hemoglobin 28, Mean Corpuscular Hemoglobin Concent 29, Red Cell Distribution Width 16.7, Platelet Count 219, Mean Platelet Volume 10.8, Neutrophils (%) (Auto) 90, Lymphocytes (%) (Auto) 5, Monocytes (%) (Auto) 5, Eosinophils (%) (Auto) 0, Basophils (%) (Auto) 0, Neutrophils # (Auto) 5.3, Lymphocytes # (Auto) 0.3, Monocytes # (Auto) 0.3, Eosinophils # (Auto) 0.0, Basophils # (Auto) 0.0, Sodium Level 144, Potassium Level 3.6, Chloride Level 94, Carbon Dioxide Level 40, Anion Gap 10, Blood Urea Nitrogen 31, Creatinine 1.19, Estimat Glomerular Filtration Rate 45, BUN/Creatinine Ratio 26, Glucose Level 203, Calcium Level 9.2, Phosphorus Level 4.8, Magnesium Level 2.4 01/17/20 20:37: Stool Occult Blood Immunoassay POSITIVE 01/18/20 03:01: White Blood Count 5.7, Red Blood Count 4.33, Hemoglobin 12.1, Hematocrit 41, Mean Corpuscular Volume 94, Mean Corpuscular Hemoglobin 28, Mean Corpuscular Hemoglobin Concent 30, Red Cell Distribution Width 16.5, Platelet Count 200, Mean Platelet Volume 11.3, Neutrophils (%) (Auto) 88, Lymphocytes (%) (Auto) 6, Monocytes (%) (Auto) 7, Eosinophils (%) (Auto) 0, Basophils (%) (Auto) 0, Mina trophils # (Auto) 5.0, Lymphocytes # (Auto) 0.3, Monocytes # (Auto) 0.4, Eosinophils # (Auto) 0.0, Basophils # (Auto) 0.0, Sodium Level 141, Potassium Level 3.8, Chloride Level 99, Carbon Dioxide Level 30, Anion Gap 12, Blood Urea Nitrogen 27, Creatinine 1.16, Estimat Glomerular Filtration Rate 46, BUN/Creatinine Ratio 23, Glucose Level 202, Calcium Level 9.1, Phosphorus Level 3.9, Magnesium Level 2.4 01/18/20 05:27: Glucometer 197 01/18/20 11:37: Glucometer 141 01/18/20 16:16: Glucometer 153 01/18/20 20:39: Glucometer 248 01/19/20 02:56: White Blood Count 5.6, Red Blood Count 4.44, Hemoglobin 12.2, Hematocrit 41, Mean Corpuscular Volume 93, Mean Corpuscular Hemoglobin 28, Mean Corpuscular Hemoglobin Concent 30, Red Cell Distribution Width 16.4, Platelet Count 197, Mean Platelet Volume 11.1, Neutrophils (%) (Auto) 91, Lymphocytes (%) (Auto) 5, Monocytes (%) (Auto) 4, Eosinophils (%) (Auto) 0, Basophils (%) (Auto) 0, Neutrophils # (Auto) 5.1, Lymphocytes # (Auto) 0.3, Monocytes # (Auto) 0.2, Eosinophils # (Auto) 0.0, Basophils # (Auto) 0.0, Sodium Level 141, Potassium Level 4.1, Chloride Level 100, Carbon Dioxide Level 33, Anion Gap 8, Blood Urea Nitrogen 32, Creatinine 1.13, Estimat Glomerular Filtration Rate 48, BUN/Creatinine Ratio 28, Glucose Level 152, Calcium Level 8.9, Phosphorus Level 4.3, Magnesium Level 2.5 01/19/20 11:23: Glucometer 194 01/19/20 16:04: Glucometer 239 01/19/20 20:28: Glucometer 263 01/20/20 05:20: White Blood Count 5.7, Red Blood Count 4.49, Hemoglobin 12.4, Hematocrit 41, Mean Corpuscular Volume 92, Mean Corpuscular Hemoglobin 28, Mean Corpuscular Hemoglobin Concent 30, Red Cell Distribution Width 16.4, Platelet Count 191, Mean Platelet Volume 11.3, Neutrophils (%) (Auto) 90, Lymphocytes (%) (Auto) 6, Monocytes (%) (Auto) 5, Eosinophils (%) (Auto) 0, Basophils (%) (Auto) 0, Neutrophils # (Auto) 5.1, Lymphocytes # (Auto) 0.3, Monocytes # (Auto) 0.3, Eosinophils # (Auto) 0.0, Basophils # (Auto) 0.0, Sodium Level 142, Potassium Level 5.1, Chloride Level 101, Carbon Dioxide Level 33, Anion Gap 8, Blood Urea Nitrogen 30, Creatinine 0.99, Estimat Glomerular Filtration Rate 56, BUN/Creatinine Ratio 30, Glucose Level 189, Calcium Level 8.9, Phosphorus Level 4.1, Magnesium Level 2.5 01/20/20 11:01: Glucometer 160 Discharge Home Medications: Active Scripts Active Reported Furosemide 40 Mg Tablet 40 Mg PO DAILY Lisinopril 5 Mg Tablet 5 Mg PO DAILY Metoprolol Succinate 25 Mg Tab.er.24h 25 Mg PO DAILY Instructions to patient/family Please see electronic discharge instructions given to patient. Diagnosis/Problems Diagnosis/Problems (1) Respiratory failure with hypoxia and hypercapnia Status: Acute Qualifiers: Qualified Codes: J96.21 - Acute and chronic respiratory failure with hypoxia; J96.22 - Acute and chronic respiratory failure with hypercapnia (2) Acute heart failure Status: Acute Qualifiers: Qualified Codes: I50.9 - Heart failure, unspecified (3) Elevated troponin Status: Acute (4) DVT prophylaxis Status: Acute Clinical Quality Measures DVT/VTE Risk/Contraindication: Risk Factor Score Per Nursin RFS Level Per Nursing on Admit: 4+=Very High CHAPITO MILLER DO Jan 20, 2020 11:08
[2020-01-20 11:25] VITALS: BP 167/84
--- NOTE | 2020-01-20 11:31 | NUR ---
REPORT CALLED TO NEDRA WILLOUGHBY RN
[2020-01-21] MEDS ORDERED: NS (IVPB) 100 ML ONE (05:18)
[2020-01-21] MEDS ORDERED: AMPICILLIN/SULBACTAM 3 GM VIAL (UNASYN) ONE (05:18)
--- NOTE | 2020-01-21 16:52 | Physician Query Clarification ---
PQ-Conflicting Diagnosis Admission/Discharge Admission Date: January 12, 2020 at 19:56 Discharge Date: Jan 20, 2020 at 11:25 The medical record reflects the following clinical scenario: History/Risk Factors: CHF, Respiratory Failure Clinical Findings: Cath showed CAD Treatment: Lasix, Vapotherm Question: Do you agree with the impression of the likely TYPE II VA per Dr Luo's cardiac cath and note on 01/18. Please document a response in Progress Note or Discharge Summary. 1. Yes 2. No 3. Other, with explanation of clinical findings 4. Clinically undetermined, no explanation for clinical findings. PHYSICIAN RESPONSE Do you agree w/Consulting Dx?: Yes Please remember a lack of response to the above will prompt a phone page by Ivan FAULKNER/Coding staff. In responding to this query, please exercise your independent professional judgment. The purpose of this communication is to more accurately reflect the complexity of your patients condition. The fact that a question is asked does not imply that any particular answer is desired or expected. Thank you for your timely response to this clarification. Requestors name: Ingrid THIS PHYSICIAN QUERY FORM IS A PERMANENT PART OF THE MEDICAL RECORD INGRID SALAS Jan 21, 2020 16:52 CHAPITO MILLER DO Jan 21, 2020 22:24
== END 2020-01-20 11:25 | DRG 280 ==
LOC: EDUNIT# 18:35 → ER 18:38 → ICU 19:56 → 4TH 01-19 10:40
PROVIDERS: ADMIT Family Medicine; ATTEND Family Medicine
PROC: 4A023N7 Measurement of Cardiac Sampling and Pressure, Left Heart, Percutaneous Approach (ICD-10-PCS; principal; 2020-01-18)
PROC: B2111ZZ Fluoroscopy of Multiple Coronary Arteries using Low Osmolar Contrast (ICD-10-PCS; 2020-01-18)
DX: I11.0 Hypertensive heart disease with heart failure (principal); I50.31 Acute diastolic (congestive) heart failure; I21.A1 Myocardial infarction type 2; J96.21 Acute and chronic respiratory failure with hypoxia; J96.22 Acute and chronic respiratory failure with hypercapnia; J44.1 Chronic obstructive pulmonary disease with (acute) exacerbation; E87.3 Alkalosis; J18.9 Pneumonia, unspecified organism; J44.0 Chronic obstructive pulmonary disease with (acute) lower respiratory infection; E66.01 Morbid (severe) obesity due to excess calories; Z68.38 Body mass index [BMI] 38.0-38.9, adult; G47.33 Obstructive sleep apnea (adult) (pediatric); I27.20 Pulmonary hypertension, unspecified; I07.1 Rheumatic tricuspid insufficiency; I25.10 Atherosclerotic heart disease of native coronary artery without angina pectoris; E87.70 Fluid overload, unspecified; Z87.891 Personal history of nicotine dependence; Z87.01 Personal history of pneumonia (recurrent); Z99.81 Dependence on supplemental oxygen
CPT/HCPCS: 36415; 71045; 71275; 80048; 80053; 81000; 82274; 82805; 82962; 83605; 83735; 83880; 84100; 84145; 84484; 85025; 85610; 85730; 86141; 87040; 87081; 87088; 93005; 93306; 93458; 94640; 94660; 94664; 96374

== ENCOUNTER 2020-01-20 10:57 | Inpatient (IN) | payer MEDICARE, MEDICAID ==
[~2020-01-20] VITALS: Ht 152.4 cm; Wt 89.9 kg
[~2020-01-20 10:57] MED LIST changes: +FURO40TA4 PO; +LISI-556 PO; +MTP25TSR PO
[2020-01-20] MEDS ORDERED: guaiFENesin/CODEINE (ROBITUSSIN AC) 10ML UDC PO PRN (11:15)
[2020-01-20] MEDS ORDERED: ALPRAZolam 0.25 MG (XANAX) TAB PO PRN (11:15)
[2020-01-20] MEDS ORDERED: BISACODYL 10 MG SUPP (DULCOLAX) PR PRN (11:15)
[2020-01-20] MEDS ORDERED: MELATONIN 3 MG TABLET PO PRN (11:15)
[2020-01-20] MEDS ORDERED: CALCIUM CARBONATE 500 MG (TUMS) TAB.CHEW PO PRN (11:15)
[2020-01-20] MEDS ORDERED: FLEET ENEMA ADULT 1 EA BTL PR PRN (11:15)
[2020-01-20] MEDS ORDERED: LOPERAMIDE 2 MG (IMODIUM) TABLET PO PRN (11:15)
[2020-01-20] MEDS ORDERED: DOCUSATE SODIUM 100 MG (COLACE) CAP PO PRN (11:15)
[2020-01-20] MEDS ORDERED: LACTULOSE SYRUP 10GM/15ML (ENULOSE) 30ML UDC PO PRN (11:15)
[2020-01-20] MEDS ORDERED: diphenhydrAMINE 25 MG TAB (BENADRYL) PO PRN (11:15)
[2020-01-20] MEDS ORDERED: ONDANSETRON 4 MG (ZOFRAN) ORAL DISSOLVE TAB PO PRN (11:15)
[2020-01-20 11:20] VITALS: BP 165/89
--- NOTE | 2020-01-20 11:20 | NUR ---
Isidro Rivas admitted to room 230-1, with an admitting diagnosis of Acute Heart Failure, on 01/20/20 from [facility] 4th floor med surge via wheelchair accompanied by staff. ISIDRO RIVAS introduced to surroundings, call light, bed controls, phone, TV, temperature control, lights, meal times, smoking policy, visitor policy, side rail policy, bathrooms and showers. Patient Rights given to patient in the handbook. ISIDRO RIVAS verbalizes understanding that [facility] is not responsible for the loss or damage to any personal effects or valuables that are kept in the patients posession during their hospitalization. ISIDRO RIVAS verbalizes understanding of Interdisciplinary Patient Education. Patient received Patient Rights Booklet, which includes Privacy Act Statement and Data Collection Information Summary.
[2020-01-20] MEDS: RT-ALBUTEROL/IPRATROPIUM 3 ML (DUONEB) VIAL INH SCH ×3 (11:48→18:52)
--- NOTE | 2020-01-20 11:51 | PM&R Post Admission Assessment ---
PM&R Date of Visit: Jan 20, 2020 Time of Visit: 12:00 History of Present Illness CC: COPD myopathy HPI: Acute care summary: Hospital Course: Pt had a lengthy hospital course for 8 days most of it in the ICU for respiratory failure and CHF. She usually wears 4 liters of O2 at home and does have a smoking history. She was ultimately aggressively treated for respiratory failure in the ICU. Consulted cardiology who ultimately performed cardiac catheterization that showed no significant stenosis and no intervention performed. Pt remained on high flow O2, required PT, and structured activity in order to wean down off O2 so she was sent to inpatient rehab to complete her recovery. Patient was independent PLOF before admit but considering the long course she has had for 8 days inpatient most of it in ICU she is very weak and becomes hypoxic with the last amount of activity. 79% saturation noted upon arrival on the unit with minimal activity. Patient meets IRF criteria and does not have a qualifying 60% diagnosis. Patient will be admitted to IRF due to the current COVID-19 crisis. This patient is an appropriate ARU 40% patient, who during this COVID emergency, requires the admission to acute rehab. Past Wnbaqso-Fymrsv-Hsswvv Hx Past Med/Social Hx: Reviewed Nursing Past Med/Soc Hx, Reviewed and Corrections made Patient Social History Marrital Status: Employed/Student: retired Alcohol Use: Denies Use Smoking Status: Former Smoker Former Smoker, Quit: December 18, 1987 Recent Hopitalizations: No Immunizations Up To Date Date of Pneumonia Vaccine: Jul 18, 2019 Date of Influenza Vaccine: Apr 24, 2012 Past Medical History Surgeries: Cardiac Respiratory: COPD, Pneumonia, Sleep Apnea Cardiac: Chronic Edema/Swelling, Hypertension Reproductive: No Female Reproductive Disorders: Denies Psychosocial: Anxiety History of Blood Disorders: No Adverse Reaction to Blood [place]: No Family History Patient reports no known family medical history. PM&R Allergy/Meds/Data Review Allergies Coded Allergies: No Known Drug Allergies (Verified , 08/02/08) Home Medications Scheduled Furosemide (Furosemide), 40 MG PO DAILY, (Reported) Lisinopril (Lisinopril), 5 MG PO DAILY, (Reported) Metoprolol Succinate (Metoprolol Succinate), 25 MG PO DAILY, (Reported) Discontinued Medications Chlorthalidone (Chlorthalidone), 25 MG PO DAILY, (Reported) Hydrocodone/Acetaminophen (Lortab 7.5-325 mg Tablet), 1-2 EACH PO Q6H Metoprolol Succinate (Metoprolol Succinate Xl 50 Mg), 1 EACH PO DAILY, (Reported) Discontinued Reason: Prescription changed Current Medications Current Medications Reviewed Review of Systems Constitutional: see HPI, malaise, weakness EENTM: no symptoms reported Respiratory: dyspnea on exertion, short of breath, wheezing Gastrointestinal: no symptoms reported Musculoskeletal: no symptoms reported Skin: no symptoms reported Psychiatric/Neurological: Anxiety All Other Systems Reviewed Negative Unless Noted: Yes Physical Exam Physical Exam Vital Signs Capillary Refill : Height, Weight, BMI Height: 5'0.00" Weight: 185lbs. oz. 83.525525sd; 34.00 BMI Method: General Appearance: No Apparent Distress, WD/WN, Chronically ill, Obese Eyes: Bilateral Eye Normal Inspection, Bilateral Eye PERRL HEENT: PERRL/EOMI, Normal ENT Inspection, Pharynx Normal Neck: Full Range of Motion, Normal Inspection, Non Tender, Supple, Carotid Bruit Respiratory: Chest Non Tender, No Accessory Muscle Use, No Respiratory Distress, Decreased Breath Sounds Cardiovascular: Regular Rate, Rhythm, No Edema, No Gallop, No JVD, No Murmur, Normal Peripheral Pulses Gastrointestinal: Normal Bowel Sounds, No Organomegaly, No Pulsatile Mass, Non Tender, Soft Back: Normal Inspection, No CVA Tenderness, No Vertebral Tenderness Extremity: Normal Capillary Refill, Normal Inspection, Normal Range of Motion, Non Tender, No Calf Tenderness, No Pedal Edema Neurologic/Psychiatric: Alert, Oriented x3, No Motor/Sensory Deficits, Normal Mood/Affect Skin: Normal Color, Warm/Dry Lymphatic: No Adenopathy PM&R Medical Assessment & Plan REHAB/MEDICAL ASSESSMENT AND PLAN: REHAB 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 The comorbidities that impact the patients function and/or functional outcome by: former smoking and severe COPD, O2 dependency chronic, severe weakness, desats with activity REHAB PLAN: The patient is being admitted to our comprehensive inpatient rehabilitation facility and can tolerate the intensity of service consisting of at least: 180 minutes of therapy a day, 5 out of 7 days a week Rehab treatment will consist of: PT OT will focus on regaining strength while maintaining safe O2 sats while teaching energy conservation The patient/family has a good understanding of our discharge process and will benefit from an interdisciplinary inpatient rehabilitation program. The patient has potential to make improvement and is in need of at least two of the following multidisciplinary therapies including but not limited to physical, occupational, speech, and prosthetics and orthotics. Additionally the patient will need services from respiratory, nutritional services, wound care, psychology, etc. (Customize this to each patient). Given the patients complex condition and risk of further medical complications, rehabilitation services cannot be safely or effectively provided at a lower level of care such as a shelter facility. BARRIERS TO DISCHARGE: Severity of COPD ESTIMATED LOS: 6 days DISPOSITION: Home RELEVANT CHANGES SINCE PREADMISSION SCREENING: I have compared the patients medical and functional status at the time of the preadmission screening and there are: no changes PROGNOSIS: Good REHABILITATION GOALS: 1. PT OT will focus on regaining strength while maintaining safe O2 sats while teaching energy conservation All the above goals were reviewed with the patient and he/she is in agreement. By signing this document, I acknowledge that I have personally performed a full physical examination on this patient within 24 hours of admission to this inpatient rehabilitation facility and have determined the patient to be able to tolerate the above course of treatment at an intensive level for a reasonable period of time. I will be completing a detailed individualized Plan of Care for this patient by day #4 of the patients stay based upon the Preadmission Screen, the Post-Admission Evaluation, and the therapy evaluations. Admission Dx/Comorbidities: (1) Myopathy ICD Codes: G72.9 - Myopathy, unspecified (2) CHF (congestive heart failure) ICD Codes: I50.9 - Heart failure, unspecified (3) Respiratory failure with hypoxia and hypercapnia Status: Acute ICD Codes: J96.91 - Respiratory failure, unspecified with hypoxia; J96.92 - Respiratory failure, unspecified with hypercapnia (4) DVT prophylaxis Status: Acute ICD Codes: Z29.9 - Encounter for prophylactic measures, unspecified (5) Elevated troponin Status: Acute ICD Codes: R79.89 - Other specified abnormal findings of blood chemistry (6) Acute heart failure Status: Acute ICD Codes: I50.9 - Heart failure, unspecified CHAPITO MILLER DO Jan 20, 2020 11:51
--- NOTE | 2020-01-20 11:51 | NUR ---
I SPOKE WITH THE PT AND COMPLETED THE MED REC WHEN SHE WAS ON 4TH FLOOR ON 01-13-2020 AT THIS TIME NO MEDICATIONS HAVE BEEN CHANGED/DISCONTINUED AND NO NEW MEDS HAVE BEEN ORDERED. I REVIEWED THE MEDS SO THEY CAN BE CONTINUED
[2020-01-20] MEDS ORDERED: CATHETER FLUSH 10 ML SYR IV PRN (12:00)
[2020-01-20] MEDS ORDERED: PATIENT MAY USE OWN MEDS, ALL PO SCH (12:00)
--- NOTE | 2020-01-20 12:03 | Physical Therapy Evaluation ---
PT Evaluation-General Medical Diagnosis Admission Date Jan 20, 2020 at 11:20 Medical Diagnosis: Acute heart failure/debility Onset Date: Jan 20, 2020 Therapy Diagnosis Therapy Diagnosis: abnormal gait; weakness Height/Weight Height (Feet): 5 Height (Inches): 0.00 Weight (Pounds): 185 Precautions Precautions/Isolations: Standard Precautions Referral Physician: Lucina Reason for Referral: Evaluation/Treatment Medical History Pertinent Medical History: CAD, Heart Failure, HTN, Smoking (No longer smokes) Current History Pt admitted to acute care with reports of SOA and found to have acute heart failure. Transferred to ARU for continued medical management and skilled therapy services. Reviewed History: Yes Social History Home: Apartment Current Living Status: Alone Entry Into Home: Level Entry Prior Prior Level of Function SCALE: Activities may be completed with or without assistive devices. 1-Tugokmdbmc-gpcfids completes the activity by him/herself with no assistance from a helper. 5-Set-up or Clean-up Assistance-helper sets up or cleans up; patient completes activity. [place] assists only prior to or following the activity. 4-Supervision or Touching Assistance-helper provides verbal cues and/or touching/steadying and/or contact guard assistance as patient completes activity. Assistance may be provided throughout the activity or intermittently. 3-Partial/Moderate Assistance-helper does LESS THAN HALF the effort. [place] lifts, holds or supports trunk or limbs, but provides less than half the effort. 2-Substantial/Maximal Assistance-helper does MORE THAN HALF the effort. [place] lifts or holds trunk or limbs and provides more than half the effort. 9-Ozpxacqel-gztfat does ALL the effort. Patient does none of the effort to complete the activity. Or, the assistance of 2 or more helpers is required for the patient to complete the activity. If activity was not attempted, code reason: 7-Patient Refused. 9-Not Applicable-not attempted and the patient did not perform the activity before the current illness, exacerbation or injury. 10-Not Attempted due to Environmental Limitations-(lack of equipment, weather restraints, etc.). 88-Not Attempted due to Medical Conditions or Safety Concerns. Bed Mobility: 6 Transfers (B,C,W/C): 6 Gait: 6 Stairs: 6 (pt reports she rarely does steps) Wheelchair Mobility: 10 Indoor Mobility (Ambulation): Independent Stairs: Independent Prior Device Use: none Pt lives alone and is able to manage all her needs at home. She does not have a car; therefore does not drive. Pt reports she rarely has to navigate steps. PT Evaluation-Current Subjective Agrees to PT. Reports she thinks she has been in the hospital for a week already and hopes to go home by January 24. Denies pain. Reports she does wear oxygen at home. Pain Numeric Pain Scale: 0-No Pain Location: No Pain Reported Objective Patient Orientation: Person, Place, Time, Situation Attachments: Oxygen (4l/min; in situ during and post treatment.) hep lock ROM/Strength ROM Lower Extremities WFL Strength Lower Extremities B LE strength is grossly 4/5 throughout. Integumentary/Posture Integumentary Refer to nursing notes for full assessment. Bowel Incontinence: No Bladder Incontinence: No Posture upright posture and symmetrical Neuromuscular (Tone, Coordination, Reflexes) intact and without functional deficits. Sensory Vision: Functional Hearing: Functional Hand Dominance: Right Sensation Right Lower Extremit: Intact Sensation Left Lower Extremity: Intact Transfers Roll Left to Right (QC): 5 Sit to Lying (QC): 5 Lying to Sitting/Side of Bed(Q: 5 Sit to Stand (QC): 4 Chair/Ldq-di-Jafjb Xfer(QC): 4 Toilet Transfer (QC): 4 Car Transfer (QC): 88 (see followup visit) SBA with functional transfers with assist to manage oxygen tubing. Gait Does the Patient Walk?: Yes Mode of Locomotion: Walk Anticipated Mode of Locomotion: Walk Walk 10 feet (QC): 4 Walk 50 ft with 2 Turns(QC): 4 Walk 150 ft (QC): 4 Walking 10ft/uneven surface-QC: 4 Distance: 250 ft Gait Assistive Device: None Comments/Gait Description SBA with gait with skilled cues for safety; assist to manage oxygen tubing at times. Steady gait but is limited by SOA with activity. Pt ambulated x 250 ft with SBA; sat and oxygen sats measured and found to be at 79% increased to 84% within the first minute and 92% after 1 minute; pt was on oxygen at 4l/min throughout. Nursing and physician notified of oxygen desaturation. Wheelchair Training Does the Pt Use a Wheelchair?: No Wheel 50 ft with 2 turns (QC): 10 Wheel 150 ft (QC): 10 Stairs 1 Step (curb) (QC): 3 (CGA for safety with cues for safety) 4 Steps (QC): 88 12 Steps (QC): 88 Balance Sitting Static: Normal Sitting Dynamic: Normal Standing Static: Normal Standing Dynamic: Normal Picking up an Object (QC): 88 Treatment Functional gait and transfers throughout the treatment session. SBA with all transfers. Assessment/Needs Pt presents to ARU post acutehospital stay with noted SOA and CHF. Pt presents with decreased functional activity tolerance and decreased functional safety with gait and management of oxygen tubing. She will benefit from skilled PT to address strength, gait, transfers, energy conservation and safety with oxygen use. Rehab Potential: Good PT Short Term Goals Short Term Goals Time Frame: Jan 23, 2020 Sit to stand: 5 Walk 150 feet: 5 PT Fci Goals Cork Tile Floor Layer Goals PT Fci Goals Time Frame: Jan 27, 2020 Roll Left & Right (QC): 6 Sit to Lying (QC): 6 Lying-Sitting on Side/Bed(QC): 6 Sit to Stand (QC): 6 Chair/Qgx-ka-Kmnpe Xfer(QC): 6 Toilet Transfer (QC): 6 Car Transfer (QC): 6 Does the Patient Walk: Yes Walk 10 feet (QC): 6 Walk 50ft with 2 Turns (QC): 6 Walk 150 ft (QC): 6 Walking 10ft on Uneven Surface: 6 1 Step (curb) (QC): 6 4 Steps (QC): 6 12 Steps (QC): 10 Picking up an Object (QC): 5 Does the Pt use WC or Scooter?: No Wheel 50 feet with 2 turns (QC: 10 Type: N/A Wheel 150 feet: 10 Type: N/A PT Plan Problem List Problem List: Activity Tolerance, Functional Strength, Safety, Balance, Gait, Transfer, Bed Mobility Treatment/Plan Treatment Plan: Continue Plan of Care Treatment Plan: Bed Mobility, Education, Functional Activity Senthil, Functional Strength, Group Therapy, Gait, Safety, Therapeutic Exercise, Transfers Treatment Duration: Jan 27, 2020 Frequency: At least 5 of 7 days/Wk (IRF) Estimated Hrs Per Day: Other (modified program to achieve 15 hours in a 7 day period) Patient and/or Family Agrees t: Yes Safety Risks/Education Patient Education: Transfer Techniques, Safety Issues Teaching Recipient: Patient Teaching Methods: Discussion Response to Teaching: Reinforcement Needed Time/GCodes Time In: 1120 Time Out: 1145 Total Billed Treatment Time: 25 Total Billed Treatment visit EVM 15 FA 10 MASHA MUNIZ PT Jan 20, 2020 12:03
--- NOTE | 2020-01-20 13:43 | NUR ---
"RD ASSESSMENT PMHx: Unknown PMH PT INTERACTION: Pt was awake and pleasant during nutrition assessment for LOS. Pt states current appetite is good. Note avg PO intake 89% x5d, per chart review. Pt states following a regular diet, and has no issues with chewing/swallowing food. Pt states no recent issues with nausea, vomiting, constipation or diarrhea. Note last BM was 6/2, and pt not currently on bowel regimen per chart review. Pt states no recent wt changes. Note unable to determine recent wt hx, per chart review. ABNORMAL NUTRITION-RELATED LAB VALUES LOW: HIGH: K 5.1; BUN 30; glu 189; Mg 2.5 Est. kcal needs: 7026-5706 kcal | 15-18 kcal/kg Est. Pro needs: 72-90 g Pro | 0.8-1.0 g Pro/kg PES STATEMENT: Given current appetite and PO intake, no nutrition diagnosis at this time (NO-1.1) INTERVENTION: Continue with current diet order of CH O60g/m 1snack diet. Will continue to follow and reassess as pt needs, intake, and status change. MONITOR/EVALUATE: PO Intake; Plan of Care; Hydration Status; Weight Status; Lab Values Mayda Sylvester, MS, RD, LD"
[2020-01-20 13:47] VITALS: BP 165/89
--- NOTE | 2020-01-20 14:11 | Occupational Therapy Eval ---
OT Evaluation-General/PLF Medical Diagnosis Admission Date Jan 20, 2020 at 11:20 Medical Diagnosis: Acute heart failure/debility Onset Date: Jan 20, 2020 Therapy Diagnosis Therapy Diagnosis: debility Height/Weight Height (Feet): 5 Height (Inches): 0.00 Weight (Pounds): 185 Precautions Precautions/Isolations: Standard Precautions Referral Physician: Lucina Medical History Pertinent Medical History: CAD, Heart Failure, HTN, Smoking (No longer smokes) Additional Medical History chronic edema, cardiac surgery Social History Home: Apartment Current Living Status: Alone Entry Into Home: Level Entry ADL-Prior Level of Function SCALE: Activities may be completed with or without assistive devices. 6-Yaexpwszlh-pzbtpgr completes the activity by him/herself with no assistance from a helper. 5-Set-up or Clean-up Assistance-helper sets up or cleans up; patient completes activity. [place] assists only prior to or following the activity. 4-Supervision or Touching Assistance-helper provides verbal cues and/or touching/steadying and/or contact guard assistance as patient completes activity. Assistance may be provided throughout the activity or intermittently. 3-Partial/Moderate Assistance-helper does LESS THAN HALF the effort. [place] lifts, holds or supports trunk or limbs, but provides less than half the effort. 2-Substantial/Maximal Assistance-helper does MORE THAN HALF the effort. [place] lifts or holds trunk or limbs and provides more than half the effort. 0-Fiwatgmfw-oduici does ALL the effort. Patient does none of the effort to complete the activity. Or, the assistance of 2 or more helpers is required for the patient to complete the activity. If activity was not attempted, code reason: 7-Patient Refused. 9-Not Applicable-not attempted and the patient did not perform the activity before the current illness, exacerbation or injury. 10-Not Attempted due to Environmental Limitations-(lack of equipment, weather restraints, etc.). 88-Not Attempted due to Medical Conditions or Safety Concerns. ADL PLOF Comments Pt reports being independent with self care and mobility. Does not use any assistive devices for mobility. Self Care: Independent Functional Cognition: Independent DME/Equipment: Grab Bars, Shower, Tall Toilet Drive Self: Yes OT Current Status Subjective Pt agreeable to therapy. No reports of pain. Mental Status/Objective Patient Orientation: Person, Place, Situation Attachments: Oxygen (4L O2) Current Hearing Aids: No Dentures/Partials: Yes Hand Dominance: Right Upper Extremity ROM Grossly WFL Upper Extremity Coordination Intact Upper Extremity Sensation Intact per pt report Upper Extremity Strength Grossly WFL ADL-Treatment Eating (QC): 6 (Pt reports feeding self and managing containers independently) Oral Hygiene (QC): 6 (Pt states she has already completed denture care this morning without assist) Shower/Bathe Self (QC): 5 (Pt required assist to wrap IV, but was able to bathe self after set up while seated on shower bench. ) Upper Body Dressing (QC): 6 (Pt retrieved clothing without LOB. Able to doff/don pullover shirt without assist.) Lower Body Dressing (QC): 6 (Pt doffed/donned underwear and shorts without ass ist. No LOB noted during LE dressing.) On/Off Footwear (QC): 10 (Pt requires assist to doff/don socks. Pt states she never wears socks, only wears slip on Crocs. Pt does not have her shoes here at this time. Son will be bringing them to her.) Toileting Hygiene (QC): 6 (Pt able to complete toileting hygiene and clothing management independently.) OT eval [id number]: Evaluation completed. Pt participated in UE assessment while seated EOB. Pt sit to stand without assist. Ambulated to restroom without AD, no LOB noted. Pt transferred to chair with needs met after session. OT treatment [id number]: Pt agreeable to shower. Pt retrieved clothing without LOB. Gait to restroom without AD. Pt doffed clothing without assist. IV covered, and then pt able to complete bathing tasks after set up. Pt donned pullover shirt independently. Pt able to thread bilateral LE into underwear and pants without assist. Pant hike completed independently without LOB. Pt required assist to don socks. Pt states she never wears socks at home, only wears slip on shoes. She states she is not interested in AE for LE dressing. Toilet transfer completed without assist. Pt able to complete toileting hygiene and clothing management. Pt requires rest breaks throughout treatment secondary to fatigue and shortness of breath. Pt on 4LO2 Prior to activity, pt's O2 sats were 93%. Sats dropped to low 80 after shower, but increased to 94% with rest break and cues for breathing. Pt states this is her baseline for breathing. Pt sitting in chair with RN present after session. Education OT Patient Education: Rehab process Teaching Recipient: Patient Teaching Methods: Discussion Response to Teaching: Verbalize Understanding OT Half-Way Goals Half-Way Goals Time Frame: Jan 27, 2020 Eating (QC): 6 Oral Hygiene (QC): 6 Toileting Hygiene (QC): 6 Shower/Bathe Self (QC): 6 Upper Body Dressing (QC): 6 Lower Body Dressing (QC): 6 On/Off Footwear (QC): 6 Additional Goals: 2-Verbalize Understanding, 3-ImproveStrength/Senthil 1=Demonstrate adherence to instructed precautions during ADL tasks. 2=Patient will verbalize/demonstrate understanding of assistive devices/modifications for ADL. 3=Patient will improve strength/tolerance for activity to enable patient to perform ADL's. OT Education/Plan Problem List/Assessment Assessment: Decreased Activ Tolerance, Impaired I ADL's, Impaired Self-Care Skills Pt admitted to ARU following acute hospitalization for SOA. Pt demonstrates decreased activity tolerance, impacting ability to perform functional tasks. Pt to benefit from skilled OT intervention for ADL training, transfers, strengthening, activity tolerance, and energy conservation strategies to increase independence and safety at home. Discharge Recommendations Plan/Recommendations: Continue POC Treatment Plan/Plan of Care Treatment,Training & Education: Yes Patient would benefit from OT for education, treatment and training to promote independence in ADL's, mobility, safety and/or upper extremity function for ADL's. Plan of Care: ADL Retraining, Functional Mobility, Group Exercise/Act as Ind, UE Funct Exercise/Act Treatment Duration: Jan 27, 2020 Frequency: Modified Program (IRF) (15 hours in a 7 day period) Estimated Hrs Per Day: 1.5 hours per day Agreement: Yes Rehab Potential: Good Time/GCodes Start Time: 11:45 (1300) Stop Time: 12:05 (1350) Total Time Billed (hr/min): 70 Billed Treatment Time 2 visits, EVL(20minutes) ADLx3(50minutes) MARKEL REDDY OT Jan 20, 2020 14:11
--- OUTSIDE RECORDS SUMMARY | 2020-01-20 14:24 | XMS REPORT | Continuity of Care Document ---
[...] Code Description [place] [address] ROUT INE VENIPUNCTURE 10/29/2012 [id number] BMP 10/30/2012 [id number] GF R CALC (RESULT ONLY) 10/30/2012 17859 OXIMETRY 08/13/2013 [id number] OXIMETRY 08/17/2013 06297 ROUT INE VENIPUNCTURE 08/26/2013 95366 CBC 08/26/2013 [id number] GF R CALC (RESULT ONLY) 08/26/2013 61895 CMP 08/26/2013 18380 BNP 08/27/2013 76758 OXIMETRY 08/28/2013 Results There is no data. Encounters ACCT No. Visit Date/Time Discharge Status Pt. Type Provider Facility Loc./Unit Complaint [id number] 08/26/2013 11:41:00 08/26/2013 23:59: 59 CLS Outpatient BALTA CHÁVEZ DO [id number] 08/17/2013 11:55:00 08/17/2013 23:59: 59 CLS Outpatient BALTA CHÁVEZ DO [id number] 08/13/2013 09:48:00 08/13/2013 23:59: 59 CLS Outpatient BALTA CHÁVEZ DO [id number] 10/29/2012 16:03:00 10/29/2012 23:59: 59 CLS Outpatient JOYA JUAN MD [id number] 10/02/2012 14:36:00 10/02/2012 23:59: 59 CLS Outpatient [id number] 12/04/2012 09:40:00 Document Registration
--- OUTSIDE RECORDS SUMMARY | 2020-01-20 14:24 | XMS REPORT ---
Author Author Bitrockr receptionist scheduler [facility] Address [address] [address] Care Team Providers Care Sexual Health Physician Name Role Phone Migration, Doctor Unavailable Unavailable [...] no information BENJNIELS Owens (no [facility] [address] phone) (no phone) Medical Equipment No Information Payers No Information Additional Source Comments This clinical document has been generated using [employer] software that has been certified by the Office of the National Coordinator for Health Information Technology (ONC 15.99.04.3023.Diam.[id number]) and the National Committee for Stroke Coordinator (NCQA, as an eMeasure certified technology). FOR [...] BASED ON T HE PRIMARY CLINICAL RECORDS. [employer]. provides no warranty or guara ntee of the accuracy or completeness of information in this document.The followi ng information is based on time limited clinical information UNRECOGNIZED CONTENT PROVIDED BELOW FOR UNRECOGNIZED SECTION REASON FOR VISIT [id number]
--- NOTE | 2020-01-20 15:17 | ST Cognitive Linguistic Eval ---
Speech Evaluation-General Medical Diagnosis Acute heart failure/debility Onset Date: Jan 20, 2020 Therapy Diagnosis Therapy Diagnosis: Cognitive-communication Referral Referring Physician: Dr. Verdugo Medical History Pertinent Medical History: CAD, Heart Failure, HTN, Smoking (No longer smokes) Reviewed History: Yes Social History Current Living Status: Alone Speech PLF-Current Status Prior Level of Function Patient lives at home alone where she is independent for her daily needs. Subjective Patient was cooperative with the cognitive assessment. Language Eval: Auditory Comprehends Simple Yes/No Ques: Functional Indent/Objects Multiple [place]: Functional Ident/Pics in Multiple Sanchez: Functional Follows 1-Step Commands: Functional Follows Complex Directions: Functional Follows General Conversations: Functional Language Eval: Verbal Language Completes Spontaneous Greeting: Functional Produces Auto, Serial Info: Functional Imitates Simple Words/Phrases: Functional Word Finding: Functional Requests Basic Needs: Functional States Basic Personal Info: Functional Expresses Complex Ideas: Functional Objective Cognitive Domain Attention: WNL Memory: WNL Problem Solving: Functional Executive Functions: WNL Visuospatial Skills: WNL Composite Severity Rating: WNL Clock Drawing Severity Rating: WNL Objective Formal/Standardized Tests [facility] Mental Status ([facility]) Results 28/30, within normal limits Oral Motor/Speech Production Within Normal Limits Impression Patient is a 69 y/o female who was admitted to the ARU due to heart failure. Patient was given the SLUMS with a score of 28/30 obtained. This score is within the normal range of function. Patient does not require further ST services at t his time. Speech Patient Assess Expression of Ideas/Wants: Expression (4) Understanding Verbal Content: Understands (4) Brief Interview-Mental Status: Yes Repetition of Three Words: Three (3) Temporal Orientation: Year: Correct (3) Temporal Orientation: Month: Accurate within 5 days(2) Temporal Orientation: Day: Correct (1) Recall : Wear to say "Sock": Yes, no cue required (2) Recall : Color: Yes, no cue required (2) Recall : Bed: Yes,after cueing (1) Memory/Recall Ability: Current season, That he or she is in a hsp/hsp unit Speech-Plan Patient/Family Goals Patient/Family Goals: Patient plans on returning home where she lives alone. Treatment Plan Speech Therapy Treatment Plan: Discontinue ST Treatment Duration: Jan 20, 2020 Frequency: 1 time per week Estimated Hrs Per Day: .25 hour per day Rehab Potential: Good Barriers to Learning: None identified Pt/Family Agrees to Plan: Yes Safety Risks/Education Teaching Recipient: Patient Teaching Methods: Discussion Response to Teaching: Verbalize Understanding Education Topics Provided: Safety within her room Time Speech Therapy Time In: 14:50 Speech Therapy Time Out: 15:05 Total Billed Time: 15 Billed Treatment Time 1, SPSNDCOMP TERESSA Ferrara Jan 20, 2020 15:17
--- NOTE | 2020-01-20 15:39 | Physical Therapy Daily Note ---
PT Daily Note-Current Subjective Pt is sitting in recliner answering medical history questions from Nurse upon arrival. Pt agrees to PT and reports will be DC on Saturday per . Pain Location: No Pain Reported Mental Status Patient Orientation: Person, Place, Situation Attachments: Oxygen (4L in room but uped to 6L while in Rx) Transfers SCALE: Activities may be completed with or without assistive devices. 7-Hqvukflimi-kxuuabg completes the activity by him/herself with no assistance from a helper. 5-Set-up or Clean-up Assistance-helper sets up or cleans up; patient completes activity. [place] assists only prior to or following the activity. 4-Supervision or Touching Assistance-helper provides verbal cues and/or touching/steadying and/or contact guard assistance as patient completes activity. Assistance may be provided throughout the activity or intermittently. 3-Partial/Moderate Assistance-helper does LESS THAN HALF the effort. [place] lifts, holds or supports trunk or limbs, but provides less than half the effort. 2-Substantial/Maximal Assistance-helper does MORE THAN HALF the effort. [place] lifts or holds trunk or limbs and provides more than half the effort. 9-Upvhqqttx-oywkil does ALL the effort. Patient does none of the effort to complete the activity. Or, the assistance of 2 or more helpers is required for the patient to complete the activity. If activity was not attempted, code reason: 7-Patient Refused. 9-Not Applicable-not attempted and the patient did not perform the activity before the current illness, exacerbation or injury. 10-Not Attempted due to Environmental Limitations-(lack of equipment, weather restraints, etc.). 88-Not Attempted due to Medical Conditions or Safety Concerns. Sit to Stand (QC): 5 Weight Bearing Full Weight Bearing Full Weight Bearing Gait Training Does the Patient Walk?: Yes Distance: 400' Walk 10 feet (QC): 5 Walk 50 ft with 2 Turns(QC): 5 Walk 150 ft (QC): 5 Gait Persons Needed: 1 Gait Assistive Device: None Pt is limited by fatigue and needs frequent standing RB to recover, recovering in ~5 mins. Wheelchair Training Does the Pt Use a Wheelchair?: No Stair Training Stair Training: Handrails/: 2 handrails #of Steps: 5 1 Step (curb) (QC): 5 4 Steps (QC): 5 12 Steps (QC): 7 Stairs: Pattern: Step to Exercises Seated Therapy Exercises: Ankle pumps, Long arc quads, Hip flexion, Kicking activity, Hip abd/add, Glut set Seated Reps: 20 Treatments Pt transfers to standing and ambulates to car stimulator for car transfer then completes 1 set of 4 steps. Pt completes Seated EX in chair then Pt ambulates longer distance to work toward improving activity tolerance. Pt returns to room to rest in recliner and EVENT STAFF gives and reviews Supine & Seated written HEP. Pt has all needs met, call light in hand. Assessment Current Status: Fair Progress Pt is limited by SOA and swelling in B LE. Pt's O2 drops to low 60's on 4L of O2 during Rx and is turned up to 6L and pt recover to 93% quickly. Pt is monitored throughout Rx to watch for falling O2 level. PT Short Term Goals Short Term Goals Time Frame: Jan 23, 2020 Sit to stand: 5 Walk 150 feet: 5 PT [place] Goals Long-Term Goals PT [place] Goals Time Frame: Jan 27, 2020 Roll Left & Right (QC): 6 Sit to Lying (QC): 6 Lying-Sitting on Side/Bed(QC): 6 Sit to Stand (QC): 6 Chair/Eoi-bd-Rhfyl Xfer(QC): 6 Toilet Transfer (QC): 6 Car Transfer (QC): 6 Does the Patient Walk: Yes Walk 10 feet (QC): 6 Walk 50ft with 2 Turns (QC): 6 Walk 150 ft (QC): 6 Walking 10ft on Uneven Surface: 6 1 Step (curb) (QC): 6 4 Steps (QC): 6 12 Steps (QC): 10 Picking up an Object (QC): 5 Does the Pt use WC or Scooter?: No Wheel 50 feet with 2 turns (QC: 10 Type: N/A Wheel 150 feet: 10 Type: N/A PT Plan Problem List Problem List: Activity Tolerance, Gait Treatment/Plan Treatment Plan: Continue Plan of Care Treatment Plan: Bed Mobility, Education, Functional Activity Senthil, Functional Strength, Group Therapy, Gait, Safety, Therapeutic Exercise, Transfers Treatment Duration: Jan 27, 2020 Frequency: At least 5 of 7 days/Wk (IRF) Estimated Hrs Per Day: Other (modified program to achieve 15 hours in a 7 day period) Patient and/or Family Agrees t: Yes Safety Risks/Education Patient Education: Gait Training, Correct Positioning, Safety Issues Teaching Recipient: Patient Teaching Methods: Discussion Response to Teaching: Verbalize Understanding Time/GCodes Time In: 1400 Time Out: 1450 Total Billed Treatment Time: 50 Total Billed Treatment 1, GT (20m), FA (15m) & EX (15m) KELIN GARCIA PTA Jan 20, 2020 15:39
[2020-01-20] MEDS: inSUlin ASPART (NovoLOG) 1 UNIT/0.01 ML (CHARGE PER UNIT) SC SCH ×2 (16:41→22:19)
--- NOTE | 2020-01-20 16:41 | Cardiology Progress Note ---
Cardiology SOAP Progress Note Subjective: Improved shortness of breath. Objective: I&O/Vital Signs 01/22/20 01/22/20 01/22/20 01/22/20 02:57 06:00 07:27 09:00 Temp 36.3 Pulse 82 89 Resp 16 18 B/P (MAP) 102/67 (79) Pulse Ox 96 91 90 O2 Delivery Nasal Cannula High Flow N/C Nasal Cannula O2 Flow Rate 55.00 5.00 5.00 5.00 01/22/20 10:13 Pulse Ox 95 O2 Delivery High Flow N/C O2 Flow Rate 6.00 01/22/20 00:00 Intake Total 1200 ml Balance 1200 ml Weight (Pounds): 185 Weight (Calculated Kilograms): 83.002856 Constitutional: AAO x 3 Respiratory: chest is bilaterally symmetric, lungs clear to auscultation Cardiovascular: regular rate-rhythm, S1 and S2 Gastrointestional: soft, audible bowel sounds Extremities: normal range of motion, non-tender, normal inspection, no lower extremity edema bilateral Neurologic/Psychiatric: no motor/sensory deficits, alert, normal mood/affect, oriented x 3 A/P: Assessment/Dx: Acute diastolic congestive heart failure, Acute hypercarbic respiratory failure, resolved Hypertension, Positive troponin, mild CAD. Pulmonary hypertension, moderate to severe tricuspid regurgitation Plan: Acute diastolic congestive heart failure, significant improvement. Acute hypercarbic respiratory failure, likely multifactorial; COPD exacerbation. Significant improvement since admission. Hypertension, stable blood pressure. Positive troponin, unclear etiology. Could be type II myocardial infarction due to acute respiratory failure/acute congestive heart failure. However non-STEMI due to plaque rupture cannot be ruled out. Coronary angiography done on 01/18/2020 showed mild mid LAD CAD with some bridging. Likely type II myocardial infarction secondary to acute respiratory failure. Pulmonary hypertension: Likely secondary to severe lung disease. Moderate to severe tricuspid regurgitation: Will continue to follow clinically. Thank you for your consultation. Please call me if you have any questions. Stanton Luo MD, FACP, FACC, FSCAI, FHRS, CCDS Interventional Cardiology Cardiac Electrophysiology Vascular Medicine and Endovascular Interventions Ceci LUO MD Jan 20, 2020 16:41
[2020-01-20] MEDS: FUROSEMIDE 40 MG/4 ML INJ (LASIX) IV SCH (17:31)
[2020-01-20 17:53] VITALS: BP 138/80
--- NOTE | 2020-01-20 18:59 | NUR ---
PT HAS BEEN TOLD BY PHYSICAL THERAPY AND THIS NURSE THAT SHE NEEDS TO CALL FOR ASSISTANCE WHEN NEEDING TO BE UP IN ROOM. PT VOICED THAT SHE WOULD, HOWEVER PT HAS BEEN NOTED TO BE UP IN ROOM SEVERAL TIMES THROUGH OUT THIS SHIFT WITH OUT USING HER CALL LIGHT.
[2020-01-20] MEDS: polyethylene glycoL POWDER 17 GM (MIRALAX) PACK PO SCH (22:18)
[2020-01-20] MEDS: SENNA W/DOCUSATE (SENOKOT S) TABLET PO SCH (22:18)
[2020-01-21 05:24] LABS: BASOPHILS % (AUTO) 0 % (0-10); EOSINOPHILS % (AUTO) 0 % (0-10); HEMATOCRIT 42 % (35-52); HEMOGLOBIN 12.4 G/DL (11.5-16.0); LYMPHOCYTES # (AUTO) 1.4 X 10^3 (1.0-4.0); LYMPHOCYTES % (AUTO) 17 % (12-44); MEAN CORPUSCULAR HEMOGLOBIN 28 PG (25-34); MEAN CORPUSCULAR HGB CONC 30 G/DL (32-36); MEAN CORPUSCULAR VOLUME 93 FL (80-99); MEAN PLATELET VOLUME 10.3 FL (7.4-10.4); MONOCYTES # (AUTO) 0.9 X 10^3 (0.0-1.0); MONOCYTES % (AUTO) 12 % (0-12); NEUTROPHILS # (AUTO) 5.8 X 10^3 (1.8-7.8); NEUTROPHILS % (AUTO) 72 % (42-75); PLATELET COUNT 196 10^3/uL (130-400); RED CELL DISTRIBUTION WIDTH 16.7 % (10.0-14.5); WHITE BLOOD COUNT 8.1 10^3/uL (4.3-11.0)
[2020-01-21 05:27] VITALS: BP 159/71
[2020-01-21 05:44] LABS: ALBUMIN 3.6 GM/DL (3.2-4.5); BILIRUBIN,TOTAL 0.6 MG/DL (0.1-1.0); CALCIUM 8.7 MG/DL (8.5-10.1); CREATININE SERUM 1.07 MG/DL (0.60-1.30); POTASSIUM 4.1 MMOL/L (3.6-5.0); TOTAL PROTEIN 5.6 GM/DL (6.4-8.2)
[2020-01-21] MEDS: inSUlin ASPART (NovoLOG) 1 UNIT/0.01 ML (CHARGE PER UNIT) SC SCH (05:47)
[2020-01-21] MEDS: RT-ALBUTEROL/IPRATROPIUM 3 ML (DUONEB) VIAL INH SCH ×5 (06:27→22:40)
--- NOTE | 2020-01-21 06:30 | Pulmonary Progress Note ---
Subjective Time Seen by a Provider: 06:29 Subjective/Events-last exam No complications noted. Sepsis Event Evaluation Height, Weight, BMI Height: 5'0.00" Weight: 185lbs. oz. 83.287894ww; 38.70 BMI Method: Exam Exam Vital Signs Date Time Temp Pulse Resp B/P (MAP) Pulse Ox O2 Delivery O2 Flow Rate FiO2 01/21/20 05:27 36.4 78 14 159/71 (100) 100 NIV Bilevel 60.00 01/21/20 00:36 88 14 94 50.00 01/20/20 21:00 Nasal Cannula 3.00 01/20/20 18:52 92 High Flow N/C 4.00 01/20/20 17:53 36.6 90 24 138/80 (99) 91 Nasal Cannula 4.00 01/20/20 15:22 Nasal Cannula 4.00 01/20/20 13:47 36.5 94 24 165/89 95 Nasal Cannula 4.00 01/20/20 11:20 36.5 94 24 165/89 (114) 95 Nasal Cannula 4.00 I & O 01/21/20 07:00 Intake Total 740 ml Balance 740 ml Height & Weight Height: 5'0.00" Weight: 185lbs. oz. 83.863797as; 38.70 BMI Method: General Appearance: No Apparent Distress, WD/WN, Chronically ill, Obese HEENT: PERRL/EOMI, Normal ENT Inspection, Pharynx Normal Neck: Full Range of Motion, Normal Inspection, Non Tender, Supple, Carotid Bruit Respiratory: Chest Non Tender, No Accessory Muscle Use, No Respiratory Distress, Decreased Breath Sounds Cardiovascular: Regular Rate, Rhythm, No Edema, No Gallop, No JVD, No Murmur, Normal Peripheral Pulses Capillary Refill: Less Than 3 Seconds Extremity: Normal Capillary Refill, Normal Inspection, Normal Range of Motion, Non Tender, No Calf Tenderness, No Pedal Edema Neurologic/Psychiatric: Alert, Oriented x3, No Motor/Sensory Deficits, Normal M ood/Affect Skin: Normal Color, Warm/Dry Lymphatic: No Adenopathy Results Lab Laboratory Tests 01/21/20 05:16 Assessment/Plan Assessment/Plan Acute on chronic respiratory failure - Improving oxygen requirements -Pt has improved with BiPAP -Will need out pt testing -BiPAP QHS. -Titrate oxygen down -s/p cath - -Duoneb Q 4 -CTA of chest -reviewed No PE Contraction alkalosis - Improving -Echo shows EF of 55-65% with grade 1 diastolic dysfunction. COPDAE -Pt uses 2-3 liters of oxygen at home over the last 3yrs. - Duoneb Q 4 NSTEMI -Cardiology following CHF - Diastolic grade 1 - per echo -Monitor Hx of tobacco use -Out pt PFT Morbid obesity with probable SUSANNAH -Out pt testing ELLIE RIGGS DO Jan 21, 2020 06:30
--- NOTE | 2020-01-21 07:06 | PM&R Progress Note ---
Subjective HPI/CC On Admission Date Seen by Provider: Jan 21, 2020 Time Seen by Provider: 09:30 Subjective/Events-last exam Pt doing pretty well Settling into inpatient rehab Desaturation noted with exertion She really has severe COPD, started on home oxygen back in 2016 but has been on oxygen 11/03 since this past May Bowels are moving pretty well Checked meds and labs Conferred with RN Reviewed therapy notes Review of Systems General: Fatigue Pulmonary: Dyspnea Objective Exam Vital Signs Vital Signs Date Time Temp Pulse Resp B/P (MAP) Pulse Ox O2 Delivery O2 Flow Rate FiO2 01/22/20 02:57 82 16 96 55.00 01/21/20 21:00 Nasal Cannula 01/21/20 17:33 36.4 108/65 (79) Capillary Refill : NONELess Than 3 Seconds General Appearance: No Apparent Distress, WD/WN, Chronically ill, Obese HEENT: PERRL/EOMI, Normal ENT Inspection, Pharynx Normal Neck: Full Range of Motion, Normal Inspection, Non Tender, Supple, Carotid Bruit Respiratory: Chest Non Tender, No Accessory Muscle Use, No Respiratory Distress, Decreased Breath Sounds Cardiovascular: Regular Rate, Rhythm, No Edema, No Gallop, No JVD, No Murmur, Normal Peripheral Pulses Gastrointestinal: Normal Bowel Sounds, No Organomegaly, No Pulsatile Mass, Non Tender, Soft Back: Normal Inspection, No CVA Tenderness, No Vertebral Tenderness Extremity: Normal Capillary Refill, Normal Inspection, Normal Range of Motion, Non Tender, No Calf Tenderness, No Pedal Edema Neurologic/Psychiatric: Alert, Oriented x3, No Motor/Sensory Deficits, Normal Mood/Affect Skin: Normal Color, Warm/Dry Lymphatic: No Adenopathy Results/Procedures Lab Patient resulted labs reviewed. FIM Transfers Therapy Code Descriptions/Definitions Functional [place] Measure: 0=Not Assessed/NA 4=Minimal Assistance 1=Total Assistance 5=Supervision or Setup 2=Maximal Assistance 6=Modified [place] 3=Moderate Assistance 7=Complete IndependenceSCALE: Activities may be completed with or without assistive devices. 2-Dydrjssheg-svnznzl completes the activity by him/herself with no assistance from a helper. 5-Set-up or Clean-up Assistance-helper sets up or cleans up; patient completes activity. [place] assists only prior to or following the activity. 4-Supervision or Touching Assistance-helper provides verbal cues and/or touching/steadying and/or contact guard assistance as patient completes activity. Assistance may be provided throughout the activity or intermittently. 3-Partial/Moderate Assistance-helper does LESS THAN HALF the effort. [place] lifts, holds or supports trunk or limbs, but provides less than half the effort. 2-Substantial/Maximal Assistance-helper does MORE THAN HALF the effort. [place] lifts or holds trunk or limbs and provides more than half the effort. 9-Fnpefcaxc-eyqhsg does ALL the effort. Patient does none of the effort to complete the activity. Or, the assistance of 2 or more helpers is required for the patient to complete the activity. If activity was not attempted, code reason: 7-Patient Refused. 9-Not Applicable-not attempted and the patient did not perform the activity before the current illness, exacerbation or injury. 10-Not Attempted due to Environmental Limitations-(lack of equipment, weather restraints, etc.). 88-Not Attempted due to Medical Conditions or Safety Concerns. Roll Left to Right (QC): 5 Sit to Lying (QC): 5 Sit to Stand (QC): 5 Chair/Wot-ov-Scqss Xfer(QC): 4 Car Transfer (QC): 88 (see followup visit) Gait Training Does the Patient Walk?: Yes Distance: 400' Walk 10 feet (QC): 5 Walk 50 ft with 2 Turns(QC): 5 Walk 150 ft (QC): 5 Walking 10ft/uneven surface-QC: 4 Gait Persons Needed: 1 Gait Assistive Device: None Wheelchair Training Does the Pt Use a Wheelchair?: No Wheel 50 ft with 2 turns (QC): 10 Wheel 150 ft (QC): 10 Stair Training Stair Training: Handrails/: 2 handrails #of Steps: 5 1 Step (curb) (QC): 5 4 Steps (QC): 5 12 Steps (QC): 7 Stairs: Pattern: Step to Balance Picking up an Object (QC): 88 ADL-Treatment Eating (QC): 6 (Pt reports feeding self and managing containers independently) Oral Hygiene (QC): 6 (Pt states she has already completed denture care this morning without assist) Shower/Bathe Self (QC): 5 (Pt required assist to wrap IV, but was able to bathe self after set up while seated on shower bench. ) Upper Body Dressing (QC): 6 (Pt retrieved clothing without LOB. Able to doff/don pullover shirt without assist.) Lower Body Dressing (QC): 6 (Pt doffed/donned underwear and shorts without assist. No LOB noted during LE dressing.) On/Off Footwear (QC): 10 (Pt requires assist to doff/don socks. Pt states she never wears socks, only wears slip on Crocs. Pt does not have her shoes here at this time. Son will be bringing them to her.) Toileting Hygiene (QC): 6 (Pt able to complete toileting hygiene and clothing management independently.) Assessment/Plan Assessment and Plan Assess & Plan/Chief Complaint Assessment: Severe COPD myopathy O2 dependency Former smoker Acute CHF requiring biPAP and diuresis in ICU 6 days Elevated troponin Type II IA Cardiac cath no intervention Plan: O2 IRF protocol Monitor O2 desaturation Nebs (1) Myopathy (2) CHF (congestive heart failure) (3) Respiratory failure with hypoxia and hypercapnia Status: Acute (4) DVT prophylaxis Status: Acute (5) Elevated troponin Status: Acute (6) Acute heart failure Status: Acute CHAPITO MILLER DO Jan 21, 2020 07:06
[2020-01-21] MEDS: FUROSEMIDE 40 MG/4 ML INJ (LASIX) IV SCH ×2 (07:39→16:17)
[2020-01-21] MEDS: polyethylene glycoL POWDER 17 GM (MIRALAX) PACK PO SCH ×2 (08:17→20:15)
[2020-01-21] MEDS: SENNA W/DOCUSATE (SENOKOT S) TABLET PO SCH ×2 (08:17→20:15)
[2020-01-21] MEDS: lisINopril 5 MG (PRINIVIL) TABLET PO SCH (08:17)
[2020-01-21] MEDS: PANTOPRAZOLE 40 MG (PROTONIX) TAB PO SCH (08:17)
[2020-01-21] MEDS ORDERED: ENOXAPARIN 40 MG/0.4 ML (LOVENOX) SYR SC SCH (10:00)
--- NOTE | 2020-01-21 10:08 | Physical Therapy Daily Note ---
PT Daily Note-Current Subjective Pt sitting in recliner upon arrival. Pt agrees to PT, reporting though that she would like to be able to move about her room and use restroom w/o having to use call light for help. Pain Location: No Pain Reported Mental Status Patient Orientation: Person, Place, Situation Attachments: Oxygen (4L in room & 6L when working with Therapy) Transfers SCALE: Activities may be completed with or without assistive devices. 3-Fljwvtztsq-ldvpapp completes the activity by him/herself with no assistance from a helper. 5-Set-up or Clean-up Assistance-helper sets up or cleans up; patient completes activity. [place] assists only prior to or following the activity. 4-Supervision or Touching Assistance-helper provides verbal cues and/or touching/steadying and/or contact guard assistance as patient completes activity. Assistance may be provided throughout the activity or intermittently. 3-Partial/Moderate Assistance-helper does LESS THAN HALF the effort. [place] lifts, holds or supports trunk or limbs, but provides less than half the effort. 2-Substantial/Maximal Assistance-helper does MORE THAN HALF the effort. [place] lifts or holds trunk or limbs and provides more than half the effort. 1-Kkvjjdnqm-lzgbxw does ALL the effort. Patient does none of the effort to complete the activity. Or, the assistance of 2 or more helpers is required for the patient to complete the activity. If activity was not attempted, code reason: 7-Patient Refused. 9-Not Applicable-not attempted and the patient did not perform the activity before the current illness, exacerbation or injury. 10-Not Attempted due to Environmental Limitations-(lack of equipment, weather restraints, etc.). 88-Not Attempted due to Medical Conditions or Safety Concerns. Sit to Stand (QC): 6 Toilet Transfer (QC): 6 Weight Bearing Full Weight Bearing Full Weight Bearing Gait Training Does the Patient Walk?: Yes Distance: 150' x2 Walk 10 feet (QC): 6 Walk 50 ft with 2 Turns(QC): 6 Walk 150 ft (QC): 6 Gait Persons Needed: 1 Gait Assistive Device: None Wheelchair Training Does the Pt Use a Wheelchair?: No Exercises Seated Therapy Exercises: Ankle pumps, Long arc quads, Hip flexion, Kicking activity, Hip abd/add, Glut set Seated Reps: 20 NuStep Minutes: 10 NuStep Workload: 5 Treatments Pt transfers to standing and ambulates in hallway. Pt completes Seated EX and uses NuStep for 10m at WL 5. Pt then ambulates in hallway returning to room to use restroom before resting in recliner. Dr Verdugo visit with pt at end of Rx, call light in hand. Assessment Pt tolerates Rx better with increased O2 level. WOOD TOOL MAKER monitors O2 and it remains 93% & above with increased O2. PT Short Term Goals Short Term Goals Time Frame: Jan 23, 2020 Sit to stand: 5 Walk 150 feet: 5 PT Manufacturing Engineering Manager Goals Manufacturing Engineering Manager Goals PT Manufacturing Engineering Manager Goals Time Frame: Jan 27, 2020 Roll Left & Right (QC): 6 Sit to Lying (QC): 6 Lying-Sitting on Side/Bed(QC): 6 Sit to Stand (QC): 6 Chair/Vrg-uk-Xykij Xfer(QC): 6 Toilet Transfer (QC): 6 Car Transfer (QC): 6 Does the Patient Walk: Yes Walk 10 feet (QC): 6 Walk 50ft with 2 Turns (QC): 6 Walk 150 ft (QC): 6 Walking 10ft on Uneven Surface: 6 1 Step (curb) (QC): 6 4 Steps (QC): 6 12 Steps (QC): 10 Picking up an Object (QC): 5 Does the Pt use WC or Scooter?: No Wheel 50 feet with 2 turns (QC: 10 Type: N/A Wheel 150 feet: 10 Type: N/A PT Plan Problem List Problem List: Activity Tolerance Treatment/Plan Treatment Plan: Continue Plan of Care Treatment Plan: Bed Mobility, Education, Functional Activity Senthil, Functional Strength, Group Therapy, Gait, Safety, Therapeutic Exercise, Transfers Treatment Duration: Jan 27, 2020 Frequency: At least 5 of 7 days/Wk (IRF) Estimated Hrs Per Day: Other (modified program to achieve 15 hours in a 7 day period) Patient and/or Family Agrees t: Yes Safety Risks/Education Patient Education: Gait Training, Safety Issues Teaching Recipient: Patient Teaching Methods: Discussion Response to Teaching: Verbalize Understanding Time/GCodes Time In: 900 Time Out: 1000 Total Billed Treatment Time: 60 Total Billed Treatment 1, GT (15m), EX x2 (30m) & FA (15m) KELIN GARCIA WOOD TOOL MAKER Jan 21, 2020 10:08
--- NOTE | 2020-01-21 11:00 | Occupational Ther Daily Note ---
OT Current Status-Daily Note Subjective Pt seated in recliner, agreeable to OT tx. Pt declined ADLs at this time stating she would rather go to the therapy gym Mental Status/Objective Patient Orientation: Normal For Age Attachments: Oxygen (4L in room, 6L with therapy) ADL-Treatment Therapy Code Descriptions/Definitions Functional [place] Measure: 0=Not Assessed/NA 4=Minimal Assistance 1=Total Assistance 5=Supervision or Setup 2=Maximal Assistance 6=Modified [place] 3=Moderate Assistance 7=Complete IndependenceSCALE: Activities may be completed with or without assistive devices. 2-Fbspqquyjp-owvbcmp completes the activity by him/herself with no assistance from a helper. 5-Set-up or Clean-up Assistance-helper sets up or cleans up; patient completes activity. [place] assists only prior to or following the activity. 4-Supervision or Touching Assistance-helper provides verbal cues and/or touching/steadying and/or contact guard assistance as patient completes activity. Assistance may be provided throughout the activity or intermittently. 3-Partial/Moderate Assistance-helper does LESS THAN HALF the effort. [place] lifts, holds or supports trunk or limbs, but provides less than half the effort. 2-Substantial/Maximal Assistance-helper does MORE THAN HALF the effort. [place] lifts or holds trunk or limbs and provides more than half the effort. 6-Vzxzebuke-owqmoy does ALL the effort. Patient does none of the effort to complete the activity. Or, the assistance of 2 or more helpers is required for the patient to complete the activity. If activity was not attempted, code reason: 7-Patient Refused. 9-Not Applicable-not attempted and the patient did not perform the activity before the current illness, exacerbation or injury. 10-Not Attempted due to Environmental Limitations-(lack of equipment, weather restraints, etc.). 88-Not Attempted due to Medical Conditions or Safety Concerns. Upper Body Dressing (QC): 7 Lower Body Dressing (QC): 7 Toileting Hygiene (QC): 6 Toilet Transfer (QC): 6 Other Treatment Pt ambulated to therapy gym as OT managed O2 tank/lines, no AD. Pt's O2 once seated in gym in low 80%'s, returning to 90's within a minute of rest. Pt then completed arm bike x15 mins with rest break every 2-3 mins in order to monitor O2. Pt's O2 sats remained in the 90's with 6L. Pt then placed/removed graded clothespins (1-5lbs) with RUE, then repeated task with L. Pt reports she needs to use the restroom, ambulating back to her room, no AD as OT managed O2. Pt completed toileting then transferred to recliner. Pt's O2 sat at 84%, returning to 90% within 30 secs. Pt returned to 4L of O2 in her room. Post OT tx, pt seated in recliner, call light in reach and all needs met. Education OT Patient Education: Correct positioning, Energy conservation, Exercise program, Progress toward Goal/Update tx plan, Purpose of tx/functional activities Teaching Recipient: Patient Teaching Methods: Discussion Response to Teaching: Verbalize Understanding OT Senior Living Goals Senior Living Goals Time Frame: Jan 27, 2020 Eating (QC): 6 Oral Hygiene (QC): 6 Toileting Hygiene (QC): 6 Shower/Bathe Self (QC): 6 Upper Body Dressing (QC): 6 Lower Body Dressing (QC): 6 On/Off Footwear (QC): 6 Additional Goals: 2-Verbalize Understanding, 3-ImproveStrength/Senthil 1=Demonstrate adherence to instructed precautions during ADL tasks. 2=Patient will verbalize/demonstrate understanding of assistive devices/modifications for ADL. 3=Patient will improve strength/tolerance for activity to enable patient to perform ADL's. OT Education/Plan Problem List/Assessment Assessment: Decreased Activ Tolerance, Decreased UE Strength, Impaired I ADL's Pt admitted to ARU following acute hospitalization for SOA. Pt demonstrates decreased activity tolerance, impacting ability to perform functional tasks. Pt to benefit from skilled OT intervention for ADL training, transfers, strengthening, activity tolerance, and energy conservation strategies to increase independence and safety at home. Discharge Recommendations Plan/Recommendations: Continue POC Treatment Plan/Plan of Care Patient would benefit from OT for education, treatment and training to promote independence in ADL's, mobility, safety and/or upper extremity function for ADL 's. Plan of Care: ADL Retraining, Functional Mobility, Group Exercise/Act as Ind, UE Funct Exercise/Act Treatment Duration: Jan 27, 2020 Frequency: Modified Program (IRF) (15 hours in a 7 day period) Estimated Hrs Per Day: 1.5 hours per day Agreement: Yes Rehab Potential: Good Time/GCodes Start Time: 10:00 Stop Time: 11:00 Total Time Billed (hr/min): 60 Billed Treatment Time 1, EX 2 (30'), FA (20'), ADL (10') BURT EASTMAN OT Jan 21, 2020 11:00
[2020-01-21] MEDS: ENOXAPARIN 40 MG/0.4 ML (LOVENOX) SYR SQ SCH ×2 (11:11→11:16)
--- NOTE | 2020-01-21 13:15 | Occupational Ther Daily Note ---
OT Current Status-Daily Note Subjective Pt seated in recliner, agreeable to OT tx. She denied need to use the restroom stating she just went. Mental Status/Objective Patient Orientation: Normal For Age Attachments: Oxygen (4L in room, 6L with therapy) ADL-Treatment Therapy Code Descriptions/Definitions Functional [place] Measure: 0=Not Assessed/NA 4=Minimal Assistance 1=Total Assistance 5=Supervision or Setup 2=Maximal Assistance 6=Modified [place] 3=Moderate Assistance 7=Complete IndependenceSCALE: Activities may be completed with or without assistive devices. 7-Tkjzsnzpxj-nlmopdi completes the activity by him/herself with no assistance from a helper. 5-Set-up or Clean-up Assistance-helper sets up or cleans up; patient completes activity. [place] assists only prior to or following the activity. 4-Supervision or Touching Assistance-helper provides verbal cues and/or touching/steadying and/or contact guard assistance as patient completes activity. Assistance may be provided throughout the activity or intermittently. 3-Partial/Moderate Assistance-helper does LESS THAN HALF the effort. [place] lifts, holds or supports trunk or limbs, but provides less than half the effort. 2-Substantial/Maximal Assistance-helper does MORE THAN HALF the effort. [place] lifts or holds trunk or limbs and provides more than half the effort. 9-Gibztmwtg-kyvbkb does ALL the effort. Patient does none of the effort to complete the activity. Or, the assistance of 2 or more helpers is required for the patient to complete the activity. If activity was not attempted, code reason: 7-Patient Refused. 9-Not Applicable-not attempted and the patient did not perform the activity before the current illness, exacerbation or injury. 10-Not Attempted due to Environmental Limitations-(lack of equipment, weather restraints, etc.). 88-Not Attempted due to Medical Conditions or Safety Concerns. Other Treatment Pt seated in recliner, ambulated to therapy area, no AD, OT managed O2 tank/lines. Pt's O2 dropped to 80% after walk, increasing back to the 90's within 1 min on 6L O2. In order to increase functional endurance and strength with tasks, pt placed 1" pegs into foam pegboard, placing x100 pegs with 2lb wrist cuff on each wrist, alternating hands with each placement. After short rest break, pt proceeded to remove pegs, alternating hands. Pt's O2 remained above 95% with task. Pt then removed beads from yellow theraputty in order to increase fine motor strength. Pt returned to her room after functional activities, up in recliner. Pt's O2 dropped to 80%, increasing back to 90's within 1 min. Pt transferred back to 4L O2. Post OT session, pt seated in recliner, call light in reach and all needs met. Education OT Patient Education: Correct positioning, Energy conservation, Modified ADL t echniques, Progress toward Goal/Update tx plan, Purpose of tx/functional activities, Transfer techniques Teaching Recipient: Patient Teaching Methods: Discussion Response to Teaching: Verbalize Understanding OT Job Service Consultant Goals [facility] Goals Time Frame: Jan 27, 2020 Eating (QC): 6 Oral Hygiene (QC): 6 Toileting Hygiene (QC): 6 Shower/Bathe Self (QC): 6 Upper Body Dressing (QC): 6 Lower Body Dressing (QC): 6 On/Off Footwear (QC): 6 Additional Goals: 2-Verbalize Understanding, 3-ImproveStrength/Senthil 1=Demonstrate adherence to instructed precautions during ADL tasks. 2=Patient will verbalize/demonstrate understanding of assistive devices/modifications for ADL. 3=Patient will improve strength/tolerance for activity to enable patient to perform ADL's. OT Education/Plan Problem List/Assessment Assessment: Decreased Activ Tolerance, Decreased UE Strength, Impaired I ADL's Pt admitted to ARU following acute hospitalization for SOA. Pt demonstrates decreased activity tolerance, impacting ability to perform functional tasks. Pt to benefit from skilled OT intervention for ADL training, transfers, strengthening, activity tolerance, and energy conservation strategies to increase independence and safety at home. Discharge Recommendations Plan/Recommendations: Continue POC Treatment Plan/Plan of Care Patient would benefit from OT for education, treatment and training to promote independence in ADL's, mobility, safety and/or upper extremity function for ADL's. Plan of Care: ADL Retraining, Functional Mobility, Group Exercise/Act as Ind, UE Funct Exercise/Act Treatment Duration: Jan 27, 2020 Frequency: Modified Program (IRF) (15 hours in a 7 day period) Estimated Hrs Per Day: 1.5 hours per day Agreement: Yes Rehab Potential: Good Time/GCodes Start Time: 13:00 Stop Time: 13:30 Total Time Billed (hr/min): 30 Billed Treatment Time 1, FA 2 (30') BURT EASTMAN OT Jan 21, 2020 13:15
--- NOTE | 2020-01-21 14:07 | NUR ---
Pt has no zoroastrianism preference and indicates no spiritual needs at this time. Licensing Engineer offered blessing.
--- NOTE | 2020-01-21 14:49 | Physical Therapy Daily Note ---
PT Daily Note-Current Subjective Pt sitting in recliner upon arrival. Pt agrees to PT. Pain Location: No Pain Reported Mental Status Patient Orientation: Person, Place Attachments: Oxygen (4L in room & 6L when up with Therapy) Transfers SCALE: Activities may be completed with or without assistive devices. 7-Asrguwfjkz-wfveelt completes the activity by him/herself with no assistance from a helper. 5-Set-up or Clean-up Assistance-helper sets up or cleans up; patient completes activity. [place] assists only prior to or following the activity. 4-Supervision or Touching Assistance-helper provides verbal cues and/or touching/steadying and/or contact guard assistance as patient completes activity. Assistance may be provided throughout the activity or intermittently. 3-Partial/Moderate Assistance-helper does LESS THAN HALF the effort. [place] lifts, holds or supports trunk or limbs, but provides less than half the effort. 2-Substantial/Maximal Assistance-helper does MORE THAN HALF the effort. [place] lifts or holds trunk or limbs and provides more than half the effort. 0-Oghkanmyl-xmczil does ALL the effort. Patient does none of the effort to complete the activity. Or, the assistance of 2 or more helpers is required for the patient to complete the activity. If activity was not attempted, code reason: 7-Patient Refused. 9-Not Applicable-not attempted and the patient did not perform the activity before the current illness, exacerbation or injury. 10-Not Attempted due to Environmental Limitations-(lack of equipment, weather restraints, etc.). 88-Not Attempted due to Medical Conditions or Safety Concerns. Sit to Stand (QC): 6 Toilet Transfer (QC): 6 Weight Bearing Full Weight Bearing Full Weight Bearing Gait Training Does the Patient Walk?: Yes Distance: 20' Walk 10 feet (QC): 6 Gait Assistive Device: None Wheelchair Training Does the Pt Use a Wheelchair?: No Treatments ANTHROPOLOGY INSTRUCTOR reviews HEP pt has in room for Supine & Seated Ex. Pt uses restroom. Pt resting in recliner at end of Rx with all needs met, call light in hand. Assessment Current Status: Good Progress Pt tolerated Rx well. Pt is made Ad jossie in room. PT Short Term Goals Short Term Goals Time Frame: Jan 23, 2020 Sit to stand: 5 Walk 150 feet: 5 PT Client Delivery Manager Goals Client Delivery Manager Goals PT [facility] Goals Time Frame: Jan 27, 2020 Roll Left & Right (QC): 6 Sit to Lying (QC): 6 Lying-Sitting on Side/Bed(QC): 6 Sit to Stand (QC): 6 Chair/Jtf-jh-Rathk Xfer(QC): 6 Toilet Transfer (QC): 6 Car Transfer (QC): 6 Does the Patient Walk: Yes Walk 10 feet (QC): 6 Walk 50ft with 2 Turns (QC): 6 Walk 150 ft (QC): 6 Walking 10ft on Uneven Surface: 6 1 Step (curb) (QC): 6 4 Steps (QC): 6 12 Steps (QC): 10 Picking up an Object (QC): 5 Does the Pt use WC or Scooter?: No Wheel 50 feet with 2 turns (QC: 10 Type: N/A Wheel 150 feet: 10 Type: N/A PT Plan Problem List Problem List: Activity Tolerance Treatment/Plan Treatment Plan: Continue Plan of Care Treatment Plan: Bed Mobility, Education, Functional Activity Senthil, Functional Strength, Group Therapy, Gait, Safety, Therapeutic Exercise, Transfers Treatment Duration: Jan 27, 2020 Frequency: At least 5 of 7 days/Wk (IRF) Estimated Hrs Per Day: Other (modified program to achieve 15 hours in a 7 day period) Patient and/or Family Agrees t: Yes Safety Risks/Education Patient Education: Correct Positioning, Safety Issues Teaching Recipient: Patient Teaching Methods: Discussion Response to Teaching: Verbalize Understanding Time/GCodes Time In: 1400 Time Out: 1430 Total Billed Treatment Time: 30 Total Billed Treatment 1, EX (20m) & FA (10m) KELIN GARCIA PTA Jan 21, 2020 14:49
--- NOTE | 2020-01-21 15:52 | Cardiology Progress Note ---
Cardiology SOAP Progress Note Subjective: Improved significantly. Objective: I&O/Vital Signs 01/22/20 01/22/20 01/22/20 01/22/20 02:57 06:00 07:27 09:00 Temp 36.3 Pulse 82 89 Resp 16 18 B/P (MAP) 102/67 (79) Pulse Ox 96 91 90 O2 Delivery Nasal Cannula High Flow N/C Nasal Cannula O2 Flow Rate 55.00 5.00 5.00 5.00 01/22/20 10:13 Pulse Ox 95 O2 Delivery High Flow N/C O2 Flow Rate 6.00 01/22/20 00:00 Intake Total 1200 ml Balance 1200 ml Weight (Pounds): 185 Weight (Calculated Kilograms): 83.304056 Constitutional: AAO x 3 Respiratory: chest is bilaterally symmetric, lungs clear to auscultation Cardiovascular: regular rate-rhythm, S1 and S2 Gastrointestional: soft, audible bowel sounds Extremities: normal range of motion, non-tender, normal inspection, no lower extremity edema bilateral Neurologic/Psychiatric: no motor/sensory deficits, alert, normal mood/affect, oriented x 3 Skin: normal color, warm/dry Results/Procedures: Labs A/P: Assessment/Dx: Acute diastolic congestive heart failure, resolved. Acute hypercarbic respiratory failure, resolved Hypertension, Positive troponin, mild CAD. Pulmonary hypertension, moderate to severe tricuspid regurgitation Plan: Acute diastolic congestive heart failure, significant improvement. Acute hypercarbic respiratory failure, likely multifactorial; COPD exacerbation. Significant improvement since admission. Hypertension, stable blood pressure. Positive troponin, unclear etiology. Could be type II myocardial infarction due to acute respiratory failure/acute congestive heart failure. However non-STEMI due to plaque rupture cannot be ruled out. Coronary angiography done on 01/18/2020 showed mild mid LAD CAD with some bridging. Likely type II myocardial infarction secondary to acute respiratory failure. Pulmonary hypertension: Likely secondary to severe lung disease. Moderate to severe tricuspid regurgitation: Will continue to follow clinically. Thank you for your consultation. Please call me if you have any questions. Stanton Luo MD, FACP, FACC, FSCAI, FHRS, CCDS Interventional Cardiology Cardiac Electrophysiology Vascular Medicine and Endovascular Interventions Ceci LUO MD Jan 21, 2020 15:52
[2020-01-21 17:33] VITALS: BP 108/65
[2020-01-22] MEDS: RT-ALBUTEROL/IPRATROPIUM 3 ML (DUONEB) VIAL INH SCH ×3 (02:56→10:13)
--- NOTE | 2020-01-22 05:55 | Pulmonary Progress Note ---
Subjective Time Seen by a Provider: 05:54 Subjective/Events-last exam No complications noted Sepsis Event Evaluation Height, Weight, BMI Height: 5'0.00" Weight: 185lbs. oz. 83.089857tr; 38.70 BMI Method: Exam Exam Vital Signs Date Time Temp Pulse Resp B/P (MAP) Pulse Ox O2 Delivery O2 Flow Rate FiO2 01/22/20 02:57 82 16 96 55.00 01/21/20 22:40 91 16 95 55.00 01/21/20 21:00 Nasal Cannula 5.00 01/21/20 18:34 90 High Flow N/C 4.00 01/21/20 17:33 36.4 96 18 108/65 (79) 90 Nasal Cannula 4.00 01/21/20 14:09 90 High Flow N/C 4.00 01/21/20 09:58 93 High Flow N/C 4.00 01/21/20 08:47 Nasal Cannula 4.00 01/21/20 06:27 98 High Flow N/C 4.00 I & O 01/22/20 07:00 Intake Total 1800 ml Balance 1800 ml Height & Weight Height: 5'0.00" Weight: 185lbs. oz. 83.031628sd; 38.70 BMI Method: General Appearance: No Apparent Distress, WD/WN, Chronically ill, Obese HEENT: PERRL/EOMI, Normal ENT Inspection, Pharynx Normal Neck: Full Range of Motion, Normal Inspection, Non Tender, Supple, Carotid Bruit Respiratory: Chest Non Tender, No Accessory Muscle Use, No Respiratory Distress, Decreased Breath Sounds Cardiovascular: Regular Rate, Rhythm, No Edema, No Gallop, No JVD, No Murmur, Normal Peripheral Pulses Capillary Refill: Less Than 3 Seconds Extremity: Normal Capillary Refill, Normal Inspection, Normal Range of Motion, Non Tender, No Calf Tenderness, No Pedal Edema Neurologic/Psychiatric: Alert, Oriented x3, No Motor/Sensory Deficits, Normal Mood/Affect Skin: Normal Color, Warm/Dry Lymphatic: No Adenopathy Results Lab Laboratory Tests 01/21/20 05:16 Assessment/Plan Assessment/Plan Acute on chronic respiratory failure - Improving oxygen requirements -Pt has improved with BiPAP -Will need out pt testing -BiPAP QHS. - while in hospital will need out pt testing for home machine -Titrate oxygen down -s/p cath - -Duoneb Q 4 -CTA of chest -reviewed No PE Contraction alkalosis - Improving -Echo shows EF of 55-65% with grade 1 diastolic dysfunction. COPDAE -Pt uses 2-3 liters of oxygen at home over the last 3yrs. - Duoneb Q 4 NSTEMI -Cardiology following CHF - Diastolic grade 1 - per echo -Monitor Hx of tobacco use -Out pt PFT Morbid obesity with probable SUSANNAH -Out pt testing ELLIE RIGGS DO Jan 22, 2020 05:55
[2020-01-22 06:00] VITALS: BP 102/67
--- NOTE | 2020-01-22 06:43 | PM&R Progress Note ---
Subjective HPI/CC On Admission Date Seen by Provider: Jan 22, 2020 Subjective/Events-last exam Pt doing pretty well Settling into inpatient rehab Desaturation noted with exertion She really has severe COPD, started on home oxygen back in 2016 but has been on oxygen 11/03 since this past May Bowels are moving pretty well Checked meds and labs Conferred with RN Reviewed therapy notes Objective Exam Vital Signs Vital Signs Date Time Temp Pulse Resp B/P (MAP) Pulse Ox O2 Delivery O2 Flow Rate FiO2 01/22/20 10:13 95 High Flow N/C 6.00 01/22/20 06:00 36.3 89 18 102/67 (79) Capillary Refill : NONELess Than 3 Seconds General Appearance: No Apparent Distress, WD/WN, Chronically ill, Obese HEENT: PERRL/EOMI, Normal ENT Inspection, Pharynx Normal Neck: Full Range of Motion, Normal Inspection, Non Tender, Supple, Carotid Bruit Respiratory: Chest Non Tender, No Accessory Muscle Use, No Respiratory Distress, Decreased Breath Sounds Cardiovascular: Regular Rate, Rhythm, No Edema, No Gallop, No JVD, No Murmur, Normal Peripheral Pulses Gastrointestinal: Normal Bowel Sounds, No Organomegaly, No Pulsatile Mass, Non Tender, Soft Back: Normal Inspection, No CVA Tenderness, No Vertebral Tenderness Extremity: Normal Capillary Refill, Normal Inspection, Normal Range of Motion, Non Tender, No Calf Tenderness, No Pedal Edema Neurologic/Psychiatric: Alert, Oriented x3, No Motor/Sensory Deficits, Normal Mood/Affect Skin: Normal Color, Warm/Dry Lymphatic: No Adenopathy Results/Procedures Lab Patient resulted labs reviewed. FIM Transfers Therapy Code Descriptions/Definitions Functional [place] Measure: 0=Not Assessed/NA 4=Minimal Assistance 1=Total Assistance 5=Supervision or Setup 2=Maximal Assistance 6=Modified [place] 3=Moderate Assistance 7=Complete IndependenceSCALE: Activities may be completed with or without assistive devices. 9-Omhnuxqfsy-xvhbilu completes the activity by him/herself with no assistance from a helper. 5-Set-up or Clean-up Assistance-helper sets up or cleans up; patient completes activity. [place] assists only prior to or following the activity. 4-Supervision or Touching Assistance-helper provides verbal cues and/or touching/steadying and/or contact guard assistance as patient completes activity. Assistance may be provided throughout the activity or intermittently. 3-Partial/Moderate Assistance-helper does LESS THAN HALF the effort. [place] l ifts, holds or supports trunk or limbs, but provides less than half the effort. 2-Substantial/Maximal Assistance-helper does MORE THAN HALF the effort. [place] lifts or holds trunk or limbs and provides more than half the effort. 7-Iqgalemxx-bbxysm does ALL the effort. Patient does none of the effort to complete the activity. Or, the assistance of 2 or more helpers is required for t he patient to complete the activity. If activity was not attempted, code reason: 7-Patient Refused. 9-Not Applicable-not attempted and the patient did not perform the activity before the current illness, exacerbation or injury. 10-Not Attempted due to Environmental Limitations-(lack of equipment, weather restraints, etc.). 88-Not Attempted due to Medical Conditions or Safety Concerns. Roll Left to Right (QC): 5 Sit to Lying (QC): 5 Sit to Stand (QC): 6 Chair/Xxp-nh-Wntyb Xfer(QC): 4 Car Transfer (QC): 88 (see followup visit) Gait Training Does the Patient Walk?: Yes Distance: 20' Walk 10 feet (QC): 6 Walk 50 ft with 2 Turns(QC): 6 Walk 150 ft (QC): 6 Walking 10ft/uneven surface-QC: 4 Gait Persons Needed: 1 Gait Assistive Device: None Wheelchair Training Does the Pt Use a Wheelchair?: No Wheel 50 ft with 2 turns (QC): 10 Wheel 150 ft (QC): 10 Stair Training Stair Training: Handrails/: 2 handrails #of Steps: 5 1 Step (curb) (QC): 5 4 Steps (QC): 5 12 Steps (QC): 7 Stairs: Pattern: Step to Balance Picking up an Object (QC): 88 ADL-Treatment Eating (QC): 6 (Pt reports feeding self and managing containers independently) Oral Hygiene (QC): 6 (Pt states she has already completed denture care this morning without assist) Shower/Bathe Self (QC): 5 (Pt required assist to wrap IV, but was able to bathe self after set up while seated on shower bench. ) Upper Body Dressing (QC): 7 Lower Body Dressing (QC): 7 On/Off Footwear (QC): 10 (Pt requires assist to doff/don socks. Pt states she never wears socks, only wears slip on Crocs. Pt does not have her shoes here at this time. Son will be bringing them to her.) Toileting Hygiene (QC): 6 Toilet Transfer (QC): 6 Assessment/Plan Assessment and Plan Assess & Plan/Chief Complaint Assessment: Severe COPD myopathy O2 dependency Former smoker Acute CHF requiring biPAP and diuresis in ICU 6 days Elevated troponin Type II [place] Cardiac cath no intervention Plan: O2 IRF protocol Monitor O2 desaturation Nebs (1) Myopathy (2) CHF (congestive heart failure) (3) Respiratory failure with hypoxia and hypercapnia Status: Acute (4) DVT prophylaxis Status: Acute (5) Elevated troponin Status: Acute (6) Acute heart failure Status: Acute CHAPITO MILLER DO Jan 22, 2020 06:43
--- NOTE | 2020-01-22 07:30 | NUR ---
O2 SAT NOW 91% ON 5L. DENIES PAIN. STATES IS GOING HOME TODAY WHETHER HAS TO LEAVE AMA OR NOT. NO OTHER COMPLAINTS.
[2020-01-22 08:00] VITALS: BP 111/67
[2020-01-22] MEDS: FUROSEMIDE 40 MG/4 ML INJ (LASIX) IV SCH (08:01)
[2020-01-22] MEDS: PANTOPRAZOLE 40 MG (PROTONIX) TAB PO SCH (08:33)
[2020-01-22] MEDS: lisINopril 5 MG (PRINIVIL) TABLET PO SCH (08:33)
--- NOTE | 2020-01-22 09:29 | NUR ---
CM/SS ADMISSION and DISCHARGE Patient was admitted to ARU 01/20/20 for acute heart failure. Other comorbidities are, in part, severe COPD, sleep apnea, history of continuous O2 since 2012, desaturations with activity. Upon verse writer arrival to converse about general admission, patient stated she was leaving today, either the physician would discharge her or she would go AMA. Updated therapy team and physician, patient had already told therapy staff she would not be participating today due to her requested dismissal. PCP: MICHELLE ARRIOLA [place], [place] PHARMACY: [facility], [place], [place] INSURANCE: Medicare, Medicaid [place] [employer] DME: Continuous O2 since 2012 from an agency in [place], patient could not remember name. Patient reports she did not use any assistive devices prior to hospitalization. BARRIERS TO DISCHARGE: Patient identifies no barriers, she has already set up her leaf size picker time with family for today. CONTACTS: Joe Celestin, [place], [place] [phone] Patient discharging, therefore, no patient care conference discussion. Patient did inquire about transportation for upcoming Dr. Bella appointment, provided [facility] Care Van contact information. Advised patient to contact Van well in advance of appointment to insure schedule availability. Addendum: 01/22/20 at 0957 by MANDI CARTER Noting, patient planned discharge was for 01/25/20. IMM2 not presented due to short stay.
[2020-01-22] MEDS: SENNA W/DOCUSATE (SENOKOT S) TABLET PO SCH (09:58)
[2020-01-22] MEDS: polyethylene glycoL POWDER 17 GM (MIRALAX) PACK PO SCH (09:58)
[2020-01-22] MEDS: ENOXAPARIN 40 MG/0.4 ML (LOVENOX) SYR SQ SCH (10:00)
--- NOTE | 2020-01-22 10:01 | Occ Therapy Progress Note ---
Therapy Progress Note OT attempted to tx pt this morning. When OT entered room, pt reports she did not want any therapy today and she would like to go home. OT encouraged pt to participate in ADL session including showering on this date, pt still adamantly refused. OT will attempt again later. 1, visit [id number] BURT EASTMAN OT Jan 22, 2020 10:01
--- NOTE | 2020-01-22 10:37 | Discharge Summary ---
Diagnosis/Chief Complaint Date of Admission Jan 20, 2020 at 11:20 Date of Discharge Discharge Diagnosis COPD myopathy Former smoker O2 dependence CHF HTN Discharge Summary Discharge Physical Examination Allergies: Coded Allergies: No Known Drug Allergies (Verified , 08/02/08) Vitals & I&Os Vital Signs Date Time Temp Pulse Resp B/P (MAP) Pulse Ox O2 Delivery O2 Flow Rate FiO2 01/22/20 10:13 95 High Flow N/C 6.00 01/22/20 06:00 36.3 89 18 102/67 (79) General Appearance: Alert, Oriented X3, Cooperative Respiratory: Clear to Auscultation Cardiovascular: Regular Rate Neuro: Normal Gait, Normal Speech, Strength at 5/5 X4 Ext Psych/Mental Status: Mental Status NL Hospital Course Was the Problem List Reviewed?: Yes Patient had a brief hospital course, more brief than planned prior to patient leaving AMA. Patient continued to have significant hypoxia with activity and the goal was to improve that stamina while in IRF prior to DC and she was participating and doing well but patient decided to leave AMA and go home and O2 was already at home so she signed AMA papers and left. Labs (last 24 hrs) Laboratory Tests 01/20/20 16:24: Glucometer 138H 01/20/20 22:04: Glucometer 156H 01/21/20 05:16: White Blood Count 8.1, Red Blood Count 4.51, Hemoglobin 12.4, Hematocrit 42, Mean Corpuscular Volume 93, Mean Corpuscular Hemoglobin 28, Mean Corpuscular Hemoglobin Concent 30L, Red Cell Distribution Width 16.7H, Platelet Count 196, Mean Platelet Volume 10.3, Neutrophils (%) (Auto) 72, Lymphocytes (%) (Auto) 17, Monocytes (%) (Auto) 12, Eosinophils (%) (Auto) 0, Basophils (%) (Auto) 0, Neutrophils # (Auto) 5.8, Lymphocytes # (Auto) 1.4, Monocytes # (Auto) 0.9, Eosinophils # (Auto) 0.0, Basophils # (Auto) 0.0, Sodium Level 143, Potassium Level 4.1, Chloride Level 99, Carbon Dioxide Level 39H, Anion Gap 5, Blood Urea Nitrogen 32H, Creatinine 1.07, Estimat Glomerular Filtration Rate 51, BUN/Creatinine Ratio 30, Glucose Level 131H, Calcium Level 8.7, Corrected Calcium 9.0, Total Bilirubin 0.6, Aspartate Amino Transf (AST/SGOT) 21, Alanine Aminotransferase (ALT/SGPT) 50, Alkaline Phosphatase 64, B-Type Natriuretic Peptide 152.1H, Total Protein 5.6L, Albumin 3.6 Pending Labs Laboratory Tests 01/20/20 16:24: Glucometer 138 01/20/20 22:04: Glucometer 156 01/21/20 05:16: White Blood Count 8.1, Red Blood Count 4.51, Hemoglobin 12.4, Hematocrit 42, Mean Corpuscular Volume 93, Mean Corpuscular Hemoglobin 28, Mean Corpuscular Hemoglobin Concent 30, Red Cell Distribution Width 16.7, Platelet Count 196, Mean Platelet Volume 10.3, Neutrophils (%) (Auto) 72, Lymphocytes (%) (Auto) 17, Monocytes (%) (Auto) 12, Eosinophils (%) (Auto) 0, Basophils (%) (Auto) 0, Neutrophils # (Auto) 5.8, Lymphocytes # (Auto) 1.4, Monocytes # (Auto) 0.9, Eosinophils # (Auto) 0.0, Basophils # (Auto) 0.0, Sodium Level 143, Potassium Level 4.1, Chloride Level 99, Carbon Dioxide Level 39, Anion Gap 5, Blood Urea Nitrogen 32, Creatinine 1.07, Estimat Glomerular Filtration Rate 51, BUN/Creatinine Ratio 30, Glucose Level 131, Calcium Level 8.7, Corrected Calcium 9.0, Total Bilirubin 0.6, Aspartate Amino Transf (AST/SGOT) 21, Alanine Aminotransferase (ALT/SGPT) 50, Alkaline Phosphatase 64, B-Type Natriuretic Peptide 152.1, Total Protein 5.6, Albumin 3.6 Discharge Home Medications: Active Scripts Active Reported Furosemide 40 Mg Tablet 40 Mg PO DAILY Lisinopril 5 Mg Tablet 5 Mg PO DAILY Metoprolol Succinate 25 Mg Tab.er.24h 25 Mg PO DAILY Instructions to patient/family Please see electronic discharge instructions given to patient. Diagnosis/Problems Diagnosis/Problems (1) Myopathy (2) CHF (congestive heart failure) (3) Respiratory failure with hypoxia and hypercapnia Status: Acute (4) DVT prophylaxis Status: Acute (5) Elevated troponin Status: Acute (6) Acute heart failure Status: Acute Clinical Quality Measures DVT/VTE Risk/Contraindication: Risk Factor Score Per Nursin RFS Level Per Nursing on Admit: 4+=Very High CHAPITO MILLER DO Jan 22, 2020 10:37
--- NOTE | 2020-01-22 10:56 | Individualized Plan of Care ---
Individualized Plan of Care Rehab Nursing IPOC Order Admission Date Jan 20, 2020 at 11:20 Current Orders Orders Admission Order(Inpt,Obs,Sdc) (01/20/20 11:10) Vital Signs: Per Unit Policy ( 08,16,00 (01/20/20 11:10) Grain Elevator Man-Inpt Rehab Con (01/20/20 11:10) Rehab Nursing Orders-Ipoc (01/20/20 11:10) Physical Therapy Rehab Orders (01/20/20 11:10) Occupational Therapy Rehab Ord (01/20/20 11:10) Speech Therapy Rehab Orders (01/20/20 11:10) Cbc With Automated Diff (01/21/20 06:00) Comprehensive Metabolic Panel (01/21/20 06:00) Intake & Output 06,14,22 (01/20/20 11:10) Precautions (Aru) (01/20/20 11:10) Rehab-Intensity Of Therapy (01/20/20 11:10) Initiate Admission Nursing Pro .admission (01/20/20 11:10) Alprazolam Tablet (Xanax Tablet) (01/20/20 11:15) Calcium Carbonate Chew Tablet (Antacid C (01/20/20 11:15) Diphenhydramine Tablet (Benadryl Tablet) (01/20/20 11:15) Docusate Sodium Capsule (Colace Capsule) (01/20/20 11:15) Bisacodyl Suppository (Dulcolax Supposit (01/20/20 11:15) Lactulose Oral Solution (Enulose Oral So (01/20/20 11:15) Na Phos/Na Biphos Enema (Fleet Enema Henry (01/20/20 11:15) Guaifenesin/Codeine Syrup (Robitussin Ac (01/20/20 11:15) Loperamide Tablet (Imodium Tablet) (01/20/20 11:15) Melatonin Tablet (Melatonin Tablet) (01/20/20 11:15) Polyethylene Glycol Powder Pkt (Miralax (01/20/20 21:00) Ondansetron Oral Dissolve Tab (Zofran (01/20/20 11:15) Senna S Tablet (Senokot S Tablet) (01/20/20 21:00) Initiate Admission Nursing Pro .admission (01/20/20 11:10) Admission Arrival Bed Request (01/20/20 11:32) Code/Resuscitation (01/20/20 11:46) Cho 60g/M 1snack (16-2000 Godwin) (01/20/20 Dinner) Albuterol/Ipra Inhalation Soln (Duoneb I (01/20/20 14:00) Enoxaparin Injection (Lovenox Injection) (01/21/20 10:00) Furosemide Injection (Lasix Injection) (01/20/20 17:00) Patient May Use Own Meds, All (Patient M (01/20/20 12:00) Sodium Chloride Flush (Catheter Flush Sy (01/20/20 12:00) Insulin Aspart (Novolog) (Novolog (Charg (01/20/20 16:00) Lisinopril Tablet (Zestril Tablet) (01/21/20 09:00) Metoprolol Succinate (Xl) Tab (Toprol Xl (01/21/20 09:00) Consult Cardiology (01/20/20 11:46) Consult Pulmonology (01/20/20 11:46) Rt Request For Service (01/20/20 11:46) Svn Small Volume Nebulizer (01/20/20 11:46) Vapotherm - Admin Rt Rfs (01/20/20 11:46) Communication For Respiratory (01/20/20 11:46) Svn Small Volume Nebulizer (01/20/20 11:46) Pantoprazole Tablet (Protonix Tablet) (01/21/20 09:00) Cho 60g/M 1snack (16-2000 Godwin) (01/20/20 Lunch) Patient Visit (01/20/20 ) Pt Eval Moderate Complexity (01/20/20 ) Functional Activities, Ea 15 (01/20/20 ) Ambulate 08,12,20 (01/20/20 14:06) Sequential Compression Device Q4H (01/20/20 14:06) Dvt/Vte Risk - Notifiy Physici Q4H (01/20/20 14:06) Patient Visit (01/20/20 ) Speech Sound Lang Comp (01/20/20 ) Patient Visit (01/20/20 ) Gait Training, Ea 15 Min (01/20/20 ) Functional Activities, Ea 15 (01/20/20 ) Exercise Therap, Ea 15 Min (01/20/20 ) BNP (01/21/20 09:10) Patient Visit (01/21/20 ) Gait Training, Ea 15 Min (01/21/20 ) Exercise Therap, Ea 15 Min (01/21/20 ) Functional Activities, Ea 15 (01/21/20 ) Rehab Nursing Orders: Ongoing Assess. of Function Status, Disease Management & Educaiton, Fluid/Electrolyte/Nutrition Mgmt, Management of Risks & Complications, Nutrition Management Intensity of Therapy to be met Patient to be seen: Min.3h per day/5 of 7d PT IPOC Problem List: Activity Tolerance Treatment Plan: Continue Plan of Care Bed Mobility, Education, Functional Activity Senthil, Functional Strength, Group Therapy, Gait, Safety, Therapeutic Exercise, Transfers Treatment Duration: Jan 27, 2020 Frequency: At least 5 of 7 days/Wk (IRF) Estimated Hrs Per Day: Other (modified program to achieve 15 hours in a 7 day period) OT IPOC Problems: Decreased Activ Tolerance, Decreased UE Strength, Impaired I ADL's OT Treatment, Training and Edu: Yes OT Problems Pt admitted to ARU following acute hospitalization for SOA. Pt demonstrates decreased activity tolerance, impacting ability to perform functional tasks. Pt to benefit from skilled OT intervention for ADL training, transfers, strengthening, activity tolerance, and energy conservation strategies to in crease independence and safety at home. Plan of Care: ADL Retraining, Functional Mobility, Group Exercise/Act as Ind, UE Funct Exercise/Act Treatment Duration: Jan 27, 2020 Frequency: Modified Program (IRF) (15 hours in a 7 day period) Estimated Hrs Per Day: 1.[address] IPOC Speech Therapy Treatment Plan: Discontinue ST Treatment Duration: Jan 20, 2020 Frequency: 1 time per week Estimated Hrs Per Day: .25 hour per day Grain Elevator Man/Case Mgmt Grain Elevator Man/Case Managemen: Discharge Planning Dietitian/Family Resource Management Specialist Dietitian/Family Resource Management Specialist to monitor nutritional status and make changes and/or recommendations as needed and work with speech pathology on dietary upgrades as the occur. Physician IPOC Medical Issues being managed closely and that require the 24 hour availability of a physician: Severe COPD with chronic hypoxia requiring O2 dependency in need of close m onitoring s/p ICU course at [facility] for CHF and elevated troponin and biPAP for resp failure Medical Issues: Falls Precautions, Fluid/Electrolyte/Nutrition Balance Brief Synthesis of Preadmission Screen, Post-Admission Evaluation, and Therapy Evaluations: PT OT will work together to regain function in order to build lung function and stamina and decrease chance of readmits Medical Prognosis: Good Anticipated Length of Stay: 5 days CHAPITO MILLER DO Jan 22, 2020 10:56
--- NOTE | 2020-01-22 11:25 | NUR ---
PATIENT LEFT AMA ACCOMPANIED BY SON AND PORTABLE O2. DR. MILLER AWARE. PATIENT STATES DOES NOT FEEL WE ARE DOING ANYTHING HERE THAT SHE CAN NOT DO AT HOME.
--- NOTE | 2020-01-22 13:06 | Cardiology Progress Note ---
Cardiology SOAP Progress Note Subjective: No cardiac complaints. Objective: I&O/Vital Signs 01/22/20 01/22/20 01/22/20 01/22/20 02:57 06:00 07:27 09:00 Temp 36.3 Pulse 82 89 Resp 16 18 B/P (MAP) 102/67 (79) Pulse Ox 96 91 90 O2 Delivery Nasal Cannula High Flow N/C Nasal Cannula O2 Flow Rate 55.00 5.00 5.00 5.00 01/22/20 10:13 Pulse Ox 95 O2 Delivery High Flow N/C O2 Flow Rate 6.00 01/22/20 00:00 Intake Total 1200 ml Balance 1200 ml Weight (Pounds): 185 Weight (Calculated Kilograms): 83.569857 Constitutional: AAO x 3 Respiratory: chest is bilaterally symmetric, lungs clear to auscultation Cardiovascular: regular rate-rhythm, S1 and S2 Gastrointestional: soft, audible bowel sounds Extremities: normal range of motion, non-tender, normal inspection, no lower extremity edema bilateral Neurologic/Psychiatric: no motor/sensory deficits, alert, normal mood/affect, oriented x 3 Skin: normal color, warm/dry A/P: Assessment/Dx: Acute diastolic congestive heart failure, resolved. Acute hypercarbic respiratory failure, resolved Hypertension, Positive troponin, mild CAD. Pulmonary hypertension, moderate to severe tricuspid regurgitation Plan: Chronic diastolic congestive heart failure, significant improvement. Acute hypercarbic respiratory failure, likely multifactorial; COPD exacerbation. Resolved. Hypertension, stable blood pressure. Positive troponin, unclear etiology. Could be type II myocardial infarction due to acute respiratory failure/acute congestive heart failure. However non-STEMI due to plaque rupture cannot be ruled out. Coronary angiography done on 01/18/2020 showed mild mid LAD CAD with some bridging. Likely type II myocardial infarction secondary to acute respiratory failure. Pulmonary hypertension: Likely secondary to severe lung disease. Moderate to severe tricuspid regurgitation: Will continue to follow clinically. Thank you for your consultation. Please call me if you have any questions. Stanton Luo MD, FACP, FACC, FSCAI, FHRS, CCDS Interventional Cardiology Cardiac Electrophysiology Vascular Medicine and Endovascular Interventions Ceci LUO MD Jan 22, 2020 13:06
--- NOTE | 2020-01-22 15:02 | Therapy Team Discharge Summary ---
Therapy Discharge Summary Discharge Recommendations Date of Discharge Jan 22, 2020 at 11:25 Physical Therapy Patient came to rehab with acute heart failure/debility. Upon evaluation patient performed bed mobility with setup, supine <-> sit with setup, sit <-> stand with SBA, transfers SBA, car transfer SBA. Patient has been performing bed mobility and transfer training, balance and endurance training, functional strengthening, stair training, gait training, and education. Patient left abruptly and PT was not able to test quality codes before she left. However she was performing bed mobility and transfers with independence, ambulating 150'- 400' without an assistive device with independence, and could go up and down 4 steps using 2 handrails with setup. Patient has been discharged from this facility today and will be discharged from PT at this time. Occupational Therapy Decreased Activ Tolerance, Decreased UE Strength, Impaired I ADL's PT Rewriter Goals Rewriter Goals PT Custodial Goals Time Frame: Jan 27, 2020 Roll Left to Right (QC): 6 Sit to Lying (QC): 6 Lying-Sitting on Side/Bed(QC): 6 Sit to Stand (QC): 6 Chair/Vqd-tm-Egwnz Xfer(QC): 6 Car Transfer (QC): 6 Does the Patient Walk: Yes Walk 10 feet (QC): 6 Walk 10ft-Uneven Surface(QC): 6 Walk 50ft with 2 Turns (QC): 6 Walk 150 ft (QC): 6 Does the Pt use WC or Scooter?: No Wheel 50 feet with 2 turns (QC: 10 1 Step (curb) (QC): 6 4 Steps (QC): 6 12 Steps (QC): 10 Picking up an Object (QC): 5 OT Rewriter Goals Rewriter Goals Time Frame: Jan 27, 2020 Eating (QC): 6 Oral Hygiene (QC): 6 Shower/Bathe Self (QC): 6 Upper Body Dressing (QC): 6 Lower Body Dressing (QC): 6 On/Off Footwear (QC): 6 Toileting Hygiene (QC): 6 Toilet/Commode Transfer (QC): 6 Additional Goals: 2-Verbalize Understanding, 3-ImproveStrength/Senthil 1=Demonstrate adherence to instructed precautions during ADL tasks. 2=Patient will verbalize/demonstrate understanding of assistive shawna babita/modifications for ADL. 3=Patient will improve strength/tolerance for activity to enable patient to perform ADL's. SEUN JOSEPH PT Jan 22, 2020 15:02
--- NOTE | 2020-01-26 11:15 | Therapy Team Discharge Summary ---
Therapy Discharge Summary Discharge Recommendations Date of Discharge Jan 22, 2020 at 11:25 Occupational Therapy Pt admitted to ARU following acute hospitalization for acute heart failure/mariza ility. On admission pt completed eating, oral hygiene, dressing, and toileting with modified independence. Pt completed bathing with set up. Pt had impaired activity tolerance and required rest breaks and increased time for tasks. Pt completed ADLs, exercises, and activity tolerance tasks. Pt then refused further treatment and left ARU AMA, so no further treatment was completed and quality codes were not obtained. Pt was completing transfers and toileting independently. D/c ARU OT Decreased Activ Tolerance, Decreased UE Strength, Impaired I ADL's PT Bindery Production Manager Goals Penitentiary Goals PT Penitentiary Goals Time Frame: Jan 27, 2020 Roll Left to Right (QC): 6 Sit to Lying (QC): 6 Lying-Sitting on Side/Bed(QC): 6 Sit to Stand (QC): 6 Chair/Ddi-do-Akyex Xfer(QC): 6 Car Transfer (QC): 6 Does the Patient Walk: Yes Walk 10 feet (QC): 6 Walk 10ft-Uneven Surface(QC): 6 Walk 50ft with 2 Turns (QC): 6 Walk 150 ft (QC): 6 Does the Pt use WC or Scooter?: No Wheel 50 feet with 2 turns (QC: 10 1 Step (curb) (QC): 6 4 Steps (QC): 6 12 Steps (QC): 10 Picking up an Object (QC): 5 OT Bindery Production Manager Goals Bindery Production Manager Goals Time Frame: Jan 27, 2020 Eating (QC): 6 Oral Hygiene (QC): 6 Shower/Bathe Self (QC): 6 Upper Body Dressing (QC): 6 Lower Body Dressing (QC): 6 On/Off Footwear (QC): 6 Toileting Hygiene (QC): 6 Toilet/Commode Transfer (QC): 6 Additional Goals: 2-Verbalize Understanding, 3-ImproveStrength/Senthil 1=Demonstrate adherence to instructed precautions during ADL tasks. 2=Patient will verbalize/demonstrate understanding of assistive devices/modifications for ADL. 3=Patient will improve strength/tolerance for activity to enable patient to perform ADL's. MARKEL REDDY OT Jan 26, 2020 11:15
== END 2020-01-22 11:25 | disposition left against medical advice (07) | DRG 91 ==
PROVIDERS: ADMIT Internal Medicine; ATTEND Internal Medicine
DX: G72.89 Other specified myopathies (principal); J44.9 Chronic obstructive pulmonary disease, unspecified; I11.0 Hypertensive heart disease with heart failure; I50.32 Chronic diastolic (congestive) heart failure; I21.A1 Myocardial infarction type 2; E87.3 Alkalosis; G47.33 Obstructive sleep apnea (adult) (pediatric); F41.9 Anxiety disorder, unspecified; I27.20 Pulmonary hypertension, unspecified; I07.1 Rheumatic tricuspid insufficiency; E66.01 Morbid (severe) obesity due to excess calories; Z87.01 Personal history of pneumonia (recurrent); Z87.09 Personal history of other diseases of the respiratory system; Z68.38 Body mass index [BMI] 38.0-38.9, adult; Z99.81 Dependence on supplemental oxygen; Z87.891 Personal history of nicotine dependence
CPT/HCPCS: 36415; 80053; 82962; 83880; 85025; 94640; 94660; 94760

== ENCOUNTER → 2020-02-29 | Outpatient (CLI) | payer MEDICARE, MEDICAID ==
[~2020-02-29] MED LIST changes: +CATHETER FLUSH 10 ML SYR IV PRN; +HOLD METFORMIN - RECEIVED CONTRAST 20 ML VIAL IV SCH; +IOHEXOL 350 MG/ML 100 ML (OMNIPAQUE 350) VIAL IV ONE; +NS 100 ML (IVPB) BAG IV ONE; +RT-ALBUTEROL SULF 2.5 MG/3 ML PRE-MIX VIAL INH ONE
[2020-02-29 14:18] LABS: BUN/CREATININE RATIO 22; CREATININE SERUM 0.76 MG/DL (0.60-1.30); GFR ESTIMATED > 60
--- NOTE | 2020-02-29 15:35 | Diagnostic Imaging Report ---
PROCEDURE: CT chest with contrast only. TECHNIQUE: Multiple contiguous axial images were obtained through the chest after administration of intravenous contrast. Auto Exposure Controls were utilized during the CT exam to meet ALARA standards for radiation dose reduction. INDICATION: Pneumonia and shortness of air. Correlation is made with prior CT chest from 01/14/2020. FINDINGS: No axillary lymphadenopathy is detected. Prominent lymph nodes in the mediastinum and hilar regions persist and appear similar to prior exam. Heart remains enlarged. There is no pericardial or pleural fluid. Pulmonary arteries remain dilated suggestive of pulmonary hypertension. A mosaic ventilation pattern is again noted. No discrete mass is identified. There is some subsegmental atelectasis in the right middle lobe and lingula. Upper abdomen demonstrates a small stone within the gallbladder. IMPRESSION: 1. Overall stable CT chest since exam from 01/06/2020. Mildly prominent lymph nodes in mediastinum and ron are unchanged. There has been improved aeration and clearing of infiltrate in the right lower lobe since prior exam. 2. Cholelithiasis. Dictated by: Dictated on workstation # [id number]
== END ==
LOC: RT 13:43
PROVIDERS: ATTEND Internal Medicine Critical Care Medicine
DX: J43.9 Emphysema, unspecified (principal); J18.9 Pneumonia, unspecified organism; E66.9 Obesity, unspecified; K80.20 Calculus of gallbladder without cholecystitis without obstruction
CPT/HCPCS: 36415; 71260; 82565; 84520; 94060; 94726; 94729